=== PATIENT | male | born 1955 | race Caucasian/White ===

== ENCOUNTER 2016-04-11 20:46 | Emergency (ER) | payer MEDICAID ==
[~2016-04-11 20:46] MED LIST: /ADVA50050 IN; /ADVA50050 INH; /ATOR40TA OR; /FENO48TA OR; ALBU17IN INH; ALBUTEROL XX; ALLO300T OR; ASPI81TA45 OR; CLAR1TAB2 PO; COLA100C2 OR; CYAN1000VL IM; DIOV80TA OR; DIOV80TA2 PO; DUONSOL INH; EXTR500C4 PO; FERR325T PO; FLON1SPR; FOLI1TAB OR; FOLI1TAB PO; ISOS30BRAN OR; LACTOSE; LACTOSE PO; LEVO25TA4 PO; LEVO500T PO; LIPI20TA PO; LOPR50TA OR; MIRA3350 PO; NITR0.4S SL; PAXI20TA OR; PAXI20TA PO; PHOSLO667 MG PO; PRED20TA OR; PRIL20CA OR; QPAP PO; ROCA0.25 PO; SYNT100T PO; TIOT18INH INH; VALS160T PO; VALS40TA PO; VIT D PO; VITA100T OR; ZYRT1TAB PO; [UNRECOGNIZED DRUG - CODE] PO; [UNRECOGNIZED DRUG - OTHER]; [UNRECOGNIZED DRUG - OTHER] OR
--- NOTE | 2016-04-11 22:58 | EDDOCDS ---
Nurse's Notes [facility] Name: Greg Gerard Age: 60 yrs Sex: Male : 1955 Arrival Date: 04/11/2016 Time: 20:46 Bed 21 Private MD: Reggie Isaac Diagnosis: Epistaxis Presentation: 04/11 21:01 Presenting complaint: Patient states: epistaxis from3-6PM today---has tissue up nose. ms2 Adult Sepsis Screening: The patient does not have new or worsening altered mentation. Patient's respiratory rate is less than 22. Systolic blood pressure is greater than 100. Patient has a qSOFA score of 0- Negative Sepsis Screen. Suicide/Homicide risk assessment- the patient denies having any suicidal and/or homicidal ideations and does not present with any other emotional, behavioral or mental health complaints. Status: Patient is not a enterprise services manager or dependent. Transition of care: patient was not received from another setting of care. 21:01 Acuity: JACKIE Level 3 ms2 21:01 Method Of Arrival: Ambulance ms2 Triage Assessment: 21:14 General: Appears in no apparent distress, Behavior is cooperative. Pain: Denies pain. ms2 HIV screening NA for this visit Offered previously. The patient is triaged at the bedside. See Assessment in Nurses Notes section of ED record. Neurological: Level of Consciousness is awake, alert, obeys commands. Respiratory: No deficits noted. Airway is patent Respiratory effort is even, unlabored, Respiratory pattern is regular, symmetrical. Derm: Skin is pink, warm & dry. Musculoskeletal: Range of motion intact in all extremities. - Social history: Smoking status: Patient states former smoker of tobacco. No barriers to communication noted, The patient speaks fluent Sinhala. - Family history: Not pertinent. - : The pt / caregiver states he / she is not on anticoagulants. Home medication list is obtained from the patient, family members, [employer] import data. - Exposure Risk Screening:: None identified. Screenin:15 Screening information is obtained from the patient. Fall risk: No risks identified. ms2 Assistance ADL's: requires no assistance with activities of daily living. Abuse/DV Screen: The patient / caregiver reports he/she is: not in a situation that causes fear, pain or injury. Nutritional screening: No deficits noted. Advance Directives: Currently, there is a health care proxy, -kofi gerard. There is no active DNR order. There is no living will. There is no Power of Dog Bather. Advance directive information does not know if advance directives have been placed in a prior [facility] medical record. Further advance directive information is declined. home support is adequate. Assessment: 21:10 General: nose drops to left nare by SALMA Chua -followed wirh nasal clips---no epistaxis ms2 noted. 22:09 General: acute care physician aimee in to see pt ---clip removed --no epistaxis. ms2 22:55 Adult Sepsis Screening: The patient does not have new or worsening altered mentation. ms2 Patient's respiratory rate is less than 22. Systolic blood pressure is greater than 100. Patient has a qSOFA score of 0- Negative Sepsis Screen. General: Appears in no apparent distress, comfortable, Behavior is cooperative. Neurological: Level of Consciousness is awake, alert, obeys commands. Respiratory: No deficits noted. Airway is patent Respiratory effort is even, unlabored, Respiratory pattern is regular, symmetrical. Derm: Skin is pink, warm & dry. Musculoskeletal: Range of motion intact in all extremities. Vital Signs: 21:04 BP 146 / 77; Pulse 58; Resp 20; Temp 96.8(O); Pulse Ox 93% on R/A; Weight 94.35 kg (R); af2 Height 5 ft. 4 in. (162.56 cm) (R); Pain 0/10; 22:55 BP 120 / 58; Pulse 58; Resp 22 S; Temp 97.9(O); Pulse Ox 93% on R/A; ms2 21:04 Body Mass Index 35.70 (94.35 kg, 162.56 cm) af2 ED Course: 20:47 Patient visited by Mara Alvarado PCA. tmm1 20:47 Reggie Isaac MD is Private Physician. tmm1 20:47 Patient moved to Waiting tmm1 20:48 Jose Paul,ZAIDA is Primary Nurse. tmm1 20:48 Patient moved to 21 tmm1 20:58 [facility]. ke 20:58 Patient visited by Abebe Chua FNP. ke 20:58 Patient visited by Abebe Chua FNP. ke 21:01 Patient visited by Jose Paul,ZAIDA. ms2 21:03 Triage Initiated ms2 21:06 Pt greeted and oriented to ED. Patient advised of names of staff involved in care, jmdany location of call mandel, wait times and NPO status. Accompanied by Family Member, Patient has correct armband on for positive identification. Bed in low position. Side rails up X2. Pulse ox on. NIBP on. 21:07 Patient visited by Dirk Fatima PCA. jmv 21:16 The patient / caregiver is instructed regarding the plan of care and ED course. ms2 21:20 The patient / caregiver is instructed regarding the plan of care and ED course. ms2 21:20 No IV's were initiated during this patient's visit. No procedures done that require ms2 assistance. 21:31 Patient visited by Abebe Chua FNP. ke 21:55 Patient visited by Abebe Chua FNP. ke 22:15 [facility] Payment Agreement was scanned into [employer] and attached to record. zo 22:25 Patient visited by Abebe Chua FNP. ke 22:48 Reggie Isaac MD is Referral Physician. ke 22:55 Patient visited by Jose Paul RN. ms2 22:56 The patient / caregiver is instructed regarding the plan of care and ED course. ms2 22:57 Primary Nurse role handed off by Jose Paul RN ms2 Administered Medications: 21:10 Drug: phenylephrine n ose drops 1 % to left nare 1 applic Route: Intranasal; Site: left ms2 nare; 21:20 CANCELLED (Other Intervention Used): Phenylephrine Drops 2.5 % 1 drps Ophthalmic in ms2 both eyes once Order Results: There are currently no results for this order. Outcome: 22:48 Discharge ordered by Provider. ke 22:56 Discharge Assessment: patient administered narcotics - no. The following High Risk ms2 Discharge criteria are identified: None. Discharged to home ambulatory, with significant other. Condition: stable. Discharge instructions given to patient, Instructed on discharge instructions, follow up and referral plans. Demonstrated understanding of instructions, Pt was receptive of discharge instructions/ teaching. No special radiology studies were completed. Property sent home with patient. 22:57 Patient left the ED. ms2 Signatures: Jose Paul RN RN ms2 Abebe Chua FNP FNP ke Olin, Zoeann zo McLear, Theresa, MANUAL ARTS THERAPY TEACHER MANUAL ARTS THERAPY TEACHER tmm1 Alvarado,Karina,RN RN af2 Fatima, Dirk, MANUAL ARTS THERAPY TEACHER MANUAL ARTS THERAPY TEACHER jmv MTDD
--- NOTE | 2016-04-11 22:59 | EDDOCDS ---
Physician Documentation [facility] Name: Greg Gerard Age: 60 yrs Sex: Male : 1955 Arrival Date: 04/11/2016 Time: 20:46 Bed 21 Private MD: Reggie Isaac Disposition: 04/11/16 22:48 Discharged to Home/Self Care. Impression: Epistaxis. - Condition is Stable. - Discharge Instructions: Nosebleed. - Medication Reconciliation, Local Pharmacy Hours form. - Follow up: Reggie Isaac MD; When: 4 - 5 days; Reason: Recheck today's complaints, Continuance of care. - Problem is an acute exacerbation. - Symptoms have improved. - Social history: Smoking status: Patient states former smoker of tobacco. No barriers to communication noted, The patient speaks fluent Stateless. - Family history: Not pertinent. - : The pt / caregiver states he / she is not on anticoagulants. Home medication list is obtained from the patient, family members, [employer] import data. - Exposure Risk Screening:: None identified. Vital Signs: 04/11 21:04 BP 146 / 77; Pulse 58; Resp 20; Temp 96.8(O); Pulse Ox 93% on R/A; Weight 94.35 kg / af2 208.01 lbs (R); Height 5 ft. 4 in. (162.56 cm) (R); Pain 0/10; 22:55 BP 120 / 58; Pulse 58; Resp 22 S; Temp 97.9(O); Pulse Ox 93% on R/A; ms2 21:04 Body Mass Index 35.70 (94.35 kg, 162.56 cm) af2 MDM: 21:01 Financial registration complete. zo 21:20 phenylephrine n ose drops 1 % to left nare 1 applic Intranasal now; instilled by Cuff Folder rosangela Yu instilled by SALMA yu ordered. 22:15 [facility] Payment Agreement was scanned into [employer] and attached to record. zo Administered Medications: 21:10 Drug: phenylephrine n ose drops 1 % to left nare 1 applic Route: Intranasal; Site: left ms2 nare; 21:20 CANCELLED (Other Intervention Used): Phenylephrine Drops 2.5 % 1 drps Ophthalmic in ms2 both eyes once Signatures: Jose Paul RN RN ms2 Abebe Yu, MOVEMENT ASSEMBLER Cristina Bowles The chart was reviewed and I authenticate all verbal orders and agree with the evaluation and treatment provided.Corrections: (The following items were deleted from the chart) 21:20 21:20 Phenylephrine Drops 2.5 % 1 drps Ophthalmic in both eyes once ordered. ms2 ms2 Attachments: 22:15 [facility] Payment Agreement zo MTDD
--- NOTE | 2016-04-13 23:59 | EDDOCDS ---
Nurse's Notes [facility] Name: Greg Gerard Age: 60 yrs Sex: Male : 1955 Arrival Date: 04/11/2016 Time: 20:46 Bed 21 Private MD: Reggie Isaac Diagnosis: Epistaxis Presentation: 04/11 21:01 Presenting complaint: Patient states: epistaxis from3-6PM today---has tissue up nose. ms2 Adult Sepsis Screening: The patient does not have new or worsening altered mentation. Patient's respiratory rate is less than 22. Systolic blood pressure is greater than 100. Patient has a qSOFA score of 0- Negative Sepsis Screen. Suicide/Homicide risk assessment- the patient denies having any suicidal and/or homicidal ideations and does not present with any other emotional, behavioral or mental health complaints. Status: Patient is not a health services coordinator or dependent. Transition of care: patient was not received from another setting of care. 21:01 Acuity: JACKIE Level 3 ms2 21:01 Method Of Arrival: Ambulance ms2 Triage Assessment: 21:14 General: Appears in no apparent distress, Behavior is cooperative. Pain: Denies pain. ms2 HIV screening NA for this visit Offered previously. The patient is triaged at the bedside. See Assessment in Nurses Notes section of ED record. Neurological: Level of Consciousness is awake, alert, obeys commands. Respiratory: No deficits noted. Airway is patent Respiratory effort is even, unlabored, Respiratory pattern is regular, symmetrical. Derm: Skin is pink, warm & dry. Musculoskeletal: Range of motion intact in all extremities. - Social history: Smoking status: Patient states former smoker of tobacco. No barriers to communication noted, The patient speaks fluent Mongolian. - Family history: Not pertinent. - : The pt / caregiver states he / she is not on anticoagulants. Home medication list is obtained from the patient, family members, [employer] import data. - Exposure Risk Screening:: None identified. Screenin:15 Screening information is obtained from the patient. Fall risk: No risks identified. ms2 Assistance ADL's: requires no assistance with activities of daily living. Abuse/DV Screen: The patient / caregiver reports he/she is: not in a situation that causes fear, pain or injury. Nutritional screening: No deficits noted. Advance Directives: Currently, there is a health care proxy, -kofi gerard. There is no active DNR order. There is no living will. There is no Power of Legislative Aide. Advance directive information does not know if advance directives have been placed in a prior [facility] medical record. Further advance directive information is declined. home support is adequate. Assessment: 21:10 General: nose drops to left nare by SALMA Chua -followed wirh nasal clips---no epistaxis ms2 noted. 22:09 General: material disposition inspector aimee in to see pt ---clip removed --no epistaxis. ms2 22:55 Adult Sepsis Screening: The patient does not have new or worsening altered mentation. ms2 Patient's respiratory rate is less than 22. Systolic blood pressure is greater than 100. Patient has a qSOFA score of 0- Negative Sepsis Screen. General: Appears in no apparent distress, comfortable, Behavior is cooperative. Neurological: Level of Consciousness is awake, alert, obeys commands. Respiratory: No deficits noted. Airway is patent Respiratory effort is even, unlabored, Respiratory pattern is regular, symmetrical. Derm: Skin is pink, warm & dry. Musculoskeletal: Range of motion intact in all extremities. Vital Signs: 21:04 BP 146 / 77; Pulse 58; Resp 20; Temp 96.8(O); Pulse Ox 93% on R/A; Weight 94.35 kg (R); af2 Height 5 ft. 4 in. (162.56 cm) (R); Pain 0/10; 22:55 BP 120 / 58; Pulse 58; Resp 22 S; Temp 97.9(O); Pulse Ox 93% on R/A; ms2 21:04 Body Mass Index 35.70 (94.35 kg, 162.56 cm) af2 ED Course: 20:47 Patient visited by Mara Alvarado PCA. tmm1 20:47 Reggie Isaac MD is Private Physician. tmm1 20:47 Patient moved to Waiting tmm1 20:48 Jose Paul,ZAIDA is Primary Nurse. tmm1 20:48 Patient moved to 21 tmm1 20:58 [facility]. ke 20:58 Patient visited by Abebe Chua FNP. ke 20:58 Patient visited by Abebe Chua FNP. ke 21:01 Patient visited by Jose Paul,ZAIDA. ms2 21:03 Triage Initiated ms2 21:06 Pt greeted and oriented to ED. Patient advised of names of staff involved in care, jmdany location of call mandel, wait times and NPO status. Accompanied by Family Member, Patient has correct armband on for positive identification. Bed in low position. Side rails up X2. Pulse ox on. NIBP on. 21:07 Patient visited by Dirk Fatima PCA. jmv 21:16 The patient / caregiver is instructed regarding the plan of care and ED course. ms2 21:20 The patient / caregiver is instructed regarding the plan of care and ED course. ms2 21:20 No IV's were initiated during this patient's visit. No procedures done that require ms2 assistance. 21:31 Patient visited by Abebe Chua FNP. ke 21:55 Patient visited by Abebe Chua FNP. ke 22:15 [facility] Payment Agreement was scanned into [employer] and attached to record. zo 22:25 Patient visited by Abebe Chua FNP. ke 22:48 Reggie Isaac MD is Referral Physician. ke 22:55 Patient visited by Jose Paul RN. ms2 22:56 The patient / caregiver is instructed regarding the plan of care and ED course. ms2 22:57 Primary Nurse role handed off by Jose Paul RN ms2 04/12 06:08 T-Sheet-- Draft Copy was scanned into [employer] and attached to record. hs2 Administered Medications: 04/11 21:10 Drug: phenylephrine n ose drops 1 % to left nare 1 applic Route: Intranasal; Site: left ms2 nare; 21:20 CANCELLED (Other Intervention Used): Phenylephrine Drops 2.5 % 1 drps Ophthalmic in ms2 both eyes once Order Results: There are currently no results for this order. Outcome: 22:48 Discharge ordered by Provider. ke 22:56 Discharge Assessment: patient administered narcotics - no. The following High Risk ms2 Discharge criteria are identified: None. Discharged to home ambulatory, with significant other. Condition: stable. Discharge instructions given to patient, Instructed on discharge instructions, follow up and referral plans. Demonstrated understanding of instructions, Pt was receptive of discharge instructions/ teaching. No special radiology studies were completed. Property sent home with patient. 22:57 Patient left the ED. ms2 Signatures: Jose Paul RN RN ms2 Abebe Chua, CONTINUITY PERSON CONTINUITY PERSON ke Cristina Luis, Mara, METAL PRODUCTS VIEWER METAL PRODUCTS VIEWER tmm1 Karina Alvarado,RN RN af2 Madison Mackay, Reg Reg hs2 Fatima, Dirk, METAL PRODUCTS VIEWER METAL PRODUCTS VIEWER jmv Chart Complete MTDD
--- NOTE | 2016-04-13 23:59 | EDDOCDS ---
Physician Documentation [facility] Name: Greg Gerard Age: 60 yrs Sex: Male : 1955 Arrival Date: 04/11/2016 Time: 20:46 Bed 21 Private MD: Reggie Isaac Disposition: 04/11/16 22:48 Discharged to Home/Self Care. Impression: Epistaxis. - Condition is Stable. - Discharge Instructions: Nosebleed. - Medication Reconciliation, Local Pharmacy Hours form. - Follow up: Reggie Isaac MD; When: 4 - 5 days; Reason: Recheck today's complaints, Continuance of care. - Problem is an acute exacerbation. - Symptoms have improved. - Social history: Smoking status: Patient states former smoker of tobacco. No barriers to communication noted, The patient speaks fluent Wallisian. - Family history: Not pertinent. - : The pt / caregiver states he / she is not on anticoagulants. Home medication list is obtained from the patient, family members, [employer] import data. - Exposure Risk Screening:: None identified. Vital Signs: 04/11 21:04 BP 146 / 77; Pulse 58; Resp 20; Temp 96.8(O); Pulse Ox 93% on R/A; Weight 94.35 kg / af2 208.01 lbs (R); Height 5 ft. 4 in. (162.56 cm) (R); Pain 0/10; 22:55 BP 120 / 58; Pulse 58; Resp 22 S; Temp 97.9(O); Pulse Ox 93% on R/A; ms2 21:04 Body Mass Index 35.70 (94.35 kg, 162.56 cm) af2 MDM: 21:01 Financial registration complete. zo 21:20 phenylephrine n ose drops 1 % to left nare 1 applic Intranasal now; instilled by [employer] Analyst rosangela Yu instilled by SALMA yu ordered. 22:15 [facility] Payment Agreement was scanned into [employer] and attached to record. zo 04/12 06:08 T-Sheet-- Draft Copy was scanned into [employer] and attached to record. hs2 Administered Medications: 04/11 21:10 Drug: phenylephrine n ose drops 1 % to left nare 1 applic Route: Intranasal; Site: left ms2 nare; 21:20 CANCELLED (Other Intervention Used): Phenylephrine Drops 2.5 % 1 drps Ophthalmic in ms2 both eyes once Signatures: oJse Paul,RN RN ms2 Abebe Yu, ENTERTAINER & COMIC ENTERTAINER & COMIC Cristina Fischer Hillary, Reg Reg hs2 The chart was reviewed and I authenticate all verbal orders and agree with the evaluation and treatment provided.Corrections: (The following items were deleted from the chart) 21:20 21:20 Phenylephrine Drops 2.5 % 1 drps Ophthalmic in both eyes once ordered. ms2 ms2 Attachments: 22:15 [facility] Payment Agreement zo 04/12 06:08 T-Sheet-- Draft Copy hs2 Chart Complete MTDD
--- NOTE | 2016-04-13 23:59 | EDDOCDS ---
Physician Documentation [facility] Name: Greg Gerard Age: 60 yrs Sex: Male : 1955 Arrival Date: 04/11/2016 Time: 20:46 Bed 21 Private MD: Reggie Isaac Disposition: 04/11/16 22:48 Discharged to Home/Self Care. Impression: Epistaxis. - Condition is Stable. - Discharge Instructions: Nosebleed. - Medication Reconciliation, Local Pharmacy Hours form. - Follow up: Reggie Isaac MD; When: 4 - 5 days; Reason: Recheck today's complaints, Continuance of care. - Problem is an acute exacerbation. - Symptoms have improved. - Social history: Smoking status: Patient states former smoker of tobacco. No barriers to communication noted, The patient speaks fluent Kazakh. - Family history: Not pertinent. - : The pt / caregiver states he / she is not on anticoagulants. Home medication list is obtained from the patient, family members, [employer] import data. - Exposure Risk Screening:: None identified. Vital Signs: 04/11 21:04 BP 146 / 77; Pulse 58; Resp 20; Temp 96.8(O); Pulse Ox 93% on R/A; Weight 94.35 kg / af2 208.01 lbs (R); Height 5 ft. 4 in. (162.56 cm) (R); Pain 0/10; 22:55 BP 120 / 58; Pulse 58; Resp 22 S; Temp 97.9(O); Pulse Ox 93% on R/A; ms2 21:04 Body Mass Index 35.70 (94.35 kg, 162.56 cm) af2 MDM: 21:01 Financial registration complete. zo 21:20 phenylephrine n ose drops 1 % to left nare 1 applic Intranasal now; instilled by Glass Designer rosangela Yu instilled by SALMA yu ordered. 22:15 [facility] Payment Agreement was scanned into [employer] and attached to record. zo 04/12 06:08 T-Sheet-- Draft Copy was scanned into [employer] and attached to record. hs2 Administered Medications: 04/11 21:10 Drug: phenylephrine n ose drops 1 % to left nare 1 applic Route: Intranasal; Site: left ms2 nare; 21:20 CANCELLED (Other Intervention Used): Phenylephrine Drops 2.5 % 1 drps Ophthalmic in ms2 both eyes once Signatures: Jose Paul,RN RN ms2 Abebe Yu, INFORMATION ANALYST INFORMATION ANALYST Cristina Fischer Hillary, Reg Reg hs2 The chart was reviewed and I authenticate all verbal orders and agree with the evaluation and treatment provided.Corrections: (The following items were deleted from the chart) 21:20 21:20 Phenylephrine Drops 2.5 % 1 drps Ophthalmic in both eyes once ordered. ms2 ms2 Attachments: 22:15 [facility] Payment Agreement zo 04/12 06:08 T-Sheet-- Draft Copy hs2 Chart Complete MTDD
== END 2016-04-11 22:57 | disposition home or self-care (01) ==
LOC: M ED 20:46
DX: R04.0 Epistaxis (principal); Z87.891 Personal history of nicotine dependence

== ENCOUNTER → 2016-04-30 | Outpatient (REF) | payer MEDICAID | LOC: M LAB REF 13:05 | PROVIDERS: ATTEND Otolaryngology | DX: H72.2X1 Other marginal perforations of tympanic membrane, right ear (principal); H66.3X1 Other chronic suppurative otitis media, right ear ==

== ENCOUNTER → 2016-07-01 | Outpatient (REF) | payer MEDICAID ==
[2016-07-01 18:21] LABS: ALBUMIN 3.7 GM/DL (3.2-5.2); ALBUMIN/GLOBULIN RATIO 1.09 (1.00-1.93); ALKALINE PHOSPHATASE 95 U/L (45-117); ALT/SGPT 27 U/L (12-78); ANION GAP 8 MEQ/L (8-16); AST/SGOT 16 U/L (15-37); BILIRUBIN,TOTAL 0.4 MG/DL (0.2-1.0); BLOOD UREA NITROGEN 14 MG/DL (7-18); CALCIUM LEVEL 9.5 MG/DL (8.8-10.2); CARBON DIOXIDE LEVEL 29 MEQ/L (21-32); CHLORIDE LEVEL 106 MEQ/L (98-107); CREATININE FOR GFR 1.28 MG/DL (0.70-1.30); FERRITIN 780 NG/ML (26-388); FREE T4 1.23 NG/DL (0.76-1.46); GLOMERULAR FILTRATION RATE > 60.0 (>49); GLUCOSE, FASTING 99 MG/DL (80-110); PERCENT SATURATION 26.7 % (19.7-37.4); PHOSPHORUS LEVEL 1.9 MG/DL (2.5-4.9); POTASSIUM SERUM 3.5 MEQ/L (3.5-5.1); SODIUM LEVEL 143 MEQ/L (136-145); TOTAL IRON BINDING CAPACITY 300 UG/DL (250-450); TOTAL PROTEIN 7.1 GM/DL (6.4-8.2)
[2016-07-01 18:35] LABS: BASO % 0.9 % (0.0-1.0); EOS # 0.5 K/mm3 (0.0-0.50); EOS % 8.1 % (0.0-3.0); LARGE UNSTAINED CELL # 0.1 K/mm3 (0.0-0.4); LARGE UNSTAINED CELL % 1.4 % (0.0-4.0); LYMPH # 1.7 K/mm3 (1.5-4.5); LYMPH % 29.1 % (24.0-44.0); MEAN CORPUSCULAR HEMOGLOBIN 33.8 pg (27.0-33.0); MEAN CORPUSCULAR HGB CONC 33.5 g/dl (32.0-36.5); MEAN CORPUSCULAR VOLUME 100.8 fl (80.0-96.0); MONO # 0.3 K/mm3 (0.0-0.8); MONO % 5.2 % (0.0-5.0); NEUTROPHILS # 3.2 K/mm3 (1.8-7.7); NEUTROPHILS % 55.2 % (36.0-66.0); PLATELET COUNT, AUTOMATED 181 k/mm3 (150-450); RED CELL DISTRIBUTION WIDTH 13.3 % (11.5-14.5); WHITE BLOOD COUNT 5.8 K/mm3 (4.0-10.0)
== END ==
LOC: M SFHCPLAZ 14:31
PROVIDERS: ATTEND Family Medicine
DX: D50.9 Iron deficiency anemia, unspecified (principal); N18.3 Chronic kidney disease, stage 3 (moderate); E03.9 Hypothyroidism, unspecified; K80.20 Calculus of gallbladder without cholecystitis without obstruction; R73.01 Impaired fasting glucose; E21.3 Hyperparathyroidism, unspecified

== ENCOUNTER → 2016-07-27 | Outpatient (CLI) | payer MEDICAID ==
--- NOTE | 2016-07-29 09:21 | DEXA ---
AP SPINE L1 - L4 1.398 1.3 1.2 LT FEMUR TOTAL 0.936 -1.1 -0.9 RT FEMUR TOTAL 0.843 -1.8 -1.6 TOTAL BODY TOTAL OTHER DUAL FEMUR FRAX* ASSESSMENT Risk factors: Glucocorticoids (chronic), history of fracture (adult), secondary osteoporosis (hyperthyroidism). 10 year probability of fracture Major osteoporotic fracture 20.5 % Hip fracture 5.7 % COMMENTS: Normal bone densitometry of the spine. There is low bone density of the hips. The density of the spine has increased 1.5% since 09/08/2012. The density of the left hip has increased 2.3% since 09/08/2012. The density of the right hip has decreased 4.3% since 09/08/2012. FOLLOW-UP: Recommendation for the next bone density exam: 2 years. JAGDISH
== END ==
LOC: M WHC 13:37
PROVIDERS: ATTEND Family Medicine
DX: E21.3 Hyperparathyroidism, unspecified (principal)

== ENCOUNTER → 2016-08-11 | Outpatient (REF) | payer MEDICAID ==
[2016-08-11 18:30] LABS: BASO % 0.4 % (0.0-1.0); EOS # 0.7 K/mm3 (0.0-0.50); EOS % 6.3 % (0.0-3.0); LARGE UNSTAINED CELL # 0.2 K/mm3 (0.0-0.4); LARGE UNSTAINED CELL % 1.9 % (0.0-4.0); LYMPH # 2.4 K/mm3 (1.5-4.5); LYMPH % 22.1 % (24.0-44.0); MEAN CORPUSCULAR HEMOGLOBIN 34.3 pg (27.0-33.0); MEAN CORPUSCULAR HGB CONC 32.4 g/dl (32.0-36.5); MEAN CORPUSCULAR VOLUME 105.8 fl (80.0-96.0); MONO # 0.7 K/mm3 (0.0-0.8); MONO % 6.8 % (0.0-5.0); NEUTROPHILS # 6.8 K/mm3 (1.8-7.7); NEUTROPHILS % 62.6 % (36.0-66.0); PLATELET COUNT, AUTOMATED 198 k/mm3 (150-450); RED CELL DISTRIBUTION WIDTH 13.7 % (11.5-14.5); WHITE BLOOD COUNT 10.8 K/mm3 (4.0-10.0)
[2016-08-11 18:59] LABS: CALCIUM LEVEL 10.4 MG/DL (8.8-10.2); CREATININE FOR GFR 1.41 MG/DL (0.70-1.30); POTASSIUM SERUM 4.1 MEQ/L (3.5-5.1)
== END ==
LOC: M SFHCPLAZ 16:51
PROVIDERS: ATTEND Physician Assistant Medical
DX: R19.7 Diarrhea, unspecified (principal)

== ENCOUNTER → 2016-08-12 | Outpatient (REF) | payer MEDICAID ==
[2016-08-15 00:06] LABS: O+P EXAM Final report (.)
== END ==
LOC: M SFHCPLAZ 09:54
PROVIDERS: ATTEND Physician Assistant Medical
DX: R19.7 Diarrhea, unspecified (principal)

== ENCOUNTER → 2016-08-18 | Outpatient (REF) | payer MEDICAID ==
[2016-08-18 10:35] LABS: BASO # 0.1 K/mm3 (0.0-0.2); EOS # 0.5 K/mm3 (0.0-0.50); EOS % 8.2 % (0.0-3.0); LARGE UNSTAINED CELL # 0.1 K/mm3 (0.0-0.4); LARGE UNSTAINED CELL % 1.8 % (0.0-4.0); LYMPH # 2.3 K/mm3 (1.5-4.5); LYMPH % 33.9 % (24.0-44.0); MEAN CORPUSCULAR HEMOGLOBIN 34.1 pg (27.0-33.0); MEAN CORPUSCULAR HGB CONC 33.5 g/dl (32.0-36.5); MEAN CORPUSCULAR VOLUME 101.7 fl (80.0-96.0); MONO # 0.4 K/mm3 (0.0-0.8); MONO % 6.1 % (0.0-5.0); NEUTROPHILS # 3.1 K/mm3 (1.8-7.7); PLATELET COUNT, AUTOMATED 203 k/mm3 (150-450); RED CELL DISTRIBUTION WIDTH 13.9 % (11.5-14.5); WHITE BLOOD COUNT 6.4 K/mm3 (4.0-10.0)
[2016-08-18 10:48] LABS: ANION GAP 3 MEQ/L (8-16); BLOOD UREA NITROGEN 20 MG/DL (7-18); CALCIUM LEVEL 9.8 MG/DL (8.8-10.2); CARBON DIOXIDE LEVEL 33 MEQ/L (21-32); CHLORIDE LEVEL 105 MEQ/L (98-107); CREATININE FOR GFR 1.21 MG/DL (0.70-1.30); GLOMERULAR FILTRATION RATE > 60.0 (>49); GLUCOSE, FASTING 150 MG/DL (80-110); POTASSIUM SERUM 4.3 MEQ/L (3.5-5.1); SODIUM LEVEL 141 MEQ/L (136-145)
== END ==
LOC: M SFHCPLAZ 08:42
PROVIDERS: ATTEND Physician Assistant Medical
DX: A09 Infectious gastroenteritis and colitis, unspecified (principal)

== ENCOUNTER → 2016-09-20 | Outpatient (REF) | payer MEDICAID ==
[2016-09-20 16:40] LABS: ALBUMIN 3.3 GM/DL (3.2-5.2); ALBUMIN/GLOBULIN RATIO 0.89 (1.00-1.93); BILIRUBIN,TOTAL 0.7 MG/DL (0.2-1.0); CALCIUM LEVEL 9.9 MG/DL (8.8-10.2); CREATININE FOR GFR 1.37 MG/DL (0.70-1.30); GLOMERULAR FILTRATION RATE 55.9 (>49); PHOSPHORUS LEVEL 1.8 MG/DL (2.5-4.9); POTASSIUM SERUM 4.8 MEQ/L (3.5-5.1); URIC ACID 6.1 MG/DL (3.5-7.2)
== END ==
LOC: M SFHCPLAZ 10:00
PROVIDERS: ATTEND Family Medicine
DX: E21.3 Hyperparathyroidism, unspecified (principal)

== ENCOUNTER 2016-11-18 18:06 | Emergency (ER) | payer MEDICAID ==
[~2016-11-18] VITALS: Ht 162.6 cm; Wt 94.5 kg
[2016-11-18] MEDS ORDERED: ALBUTEROL SULFATE 2.5 MG/0.5 ML INH NEB SOLN NEB ONE (18:45)
[2016-11-18 19:01] LABS: BASO % 0.3 % (0.0-1.0); EOS # 0.3 K/mm3 (0.0-0.50); EOS % 3.5 % (0.0-3.0); LARGE UNSTAINED CELL # 0.1 K/mm3 (0.0-0.4); LARGE UNSTAINED CELL % 1.2 % (0.0-4.0); LYMPH # 1.7 K/mm3 (1.5-4.5); MEAN CORPUSCULAR HEMOGLOBIN 34.1 pg (27.0-33.0); MEAN CORPUSCULAR VOLUME 103.5 fl (80.0-96.0); MONO # 0.6 K/mm3 (0.0-0.8); MONO % 6.2 % (0.0-5.0); NEUTROPHILS # 6.7 K/mm3 (1.8-7.7); NEUTROPHILS % 71.9 % (36.0-66.0); PLATELET COUNT, AUTOMATED 177 k/mm3 (150-450); RED CELL DISTRIBUTION WIDTH 14.2 % (11.5-14.5); WHITE BLOOD COUNT 9.3 K/mm3 (4.0-10.0)
[2016-11-18 19:22] LABS: CALCIUM LEVEL 10.3 MG/DL (8.8-10.2); CREATININE FOR GFR 1.4 MG/DL (0.70-1.30); GLOMERULAR FILTRATION RATE 54.5 (>49); POTASSIUM SERUM 4.2 MEQ/L (3.5-5.1)
[2016-11-18] MEDS ORDERED: ZITHTAB PO (19:50)
[2016-11-18 20:06] VITALS: BP 130/62
--- NOTE | 2016-11-18 20:17 | REP ---
CHEST PA AND LATERAL: 11/18/2016. Clinical history: Fever. Comparison: 10/03/2015, 03/21/2015. Findings. Two-views show the lung lopez are well inflated. There is left ventricular configuration of the heart, but no left atrial enlargement and on the lateral view the left ventricle is not enlarged. I suspect epicardial fat pad. Prominence of the pulmonary arteries bilaterally, unchanged. No vascular redistribution or edema. Minor basilar fibrotic changes, stable. No acute infiltrate, effusion, lateral pleural thickening or apical scarring. The aorta is mildly calcified at the arch without an aneurysm. Airway intact. Degenerative changes in the spine. Impression: 1. Minor basilar fibrotic change without acute cardiopulmonary disease. Signed by Kt Yun MD 11/19/2016 11:13 A
== END 2016-11-18 20:09 | disposition home or self-care (01) ==
LOC: M ED 18:06
DX: J44.0 Chronic obstructive pulmonary disease with (acute) lower respiratory infection (principal); I25.10 Atherosclerotic heart disease of native coronary artery without angina pectoris; I25.2 Old myocardial infarction; I10 Essential (primary) hypertension; E78.5 Hyperlipidemia, unspecified; N18.3 Chronic kidney disease, stage 3 (moderate); G47.30 Sleep apnea, unspecified; E03.9 Hypothyroidism, unspecified; Z98.61 Coronary angioplasty status; Z87.891 Personal history of nicotine dependence; Z82.49 Family history of ischemic heart disease and other diseases of the circulatory system; Z79.82 Long term (current) use of aspirin; Z79.899 Other long term (current) drug therapy; Z88.6 Allergy status to analgesic agent; Z91.013 Allergy to seafood

== ENCOUNTER 2016-12-04 18:56 | Emergency (ER) | payer MEDICAID ==
[~2016-12-04] VITALS: Ht 162.6 cm; Wt 208.0 kg
[~2016-12-04 18:56] MED LIST changes: +ZITHTAB PO
[2016-12-04 20:07] LABS: BASO % 0.5 % (0.0-1.0); EOS # 0.4 K/mm3 (0.0-0.50); EOS % 5.4 % (0.0-3.0); LARGE UNSTAINED CELL # 0.1 K/mm3 (0.0-0.4); LARGE UNSTAINED CELL % 1.9 % (0.0-4.0); LYMPH # 2.2 K/mm3 (1.5-4.5); LYMPH % 32.6 % (24.0-44.0); MEAN CORPUSCULAR HEMOGLOBIN 34.8 pg (27.0-33.0); MEAN CORPUSCULAR HGB CONC 34.3 g/dl (32.0-36.5); MEAN CORPUSCULAR VOLUME 101.4 fl (80.0-96.0); MONO # 0.4 K/mm3 (0.0-0.8); MONO % 5.6 % (0.0-5.0); NEUTROPHILS # 3.7 K/mm3 (1.8-7.7); PLATELET COUNT, AUTOMATED 193 k/mm3 (150-450); RED CELL DISTRIBUTION WIDTH 13.8 % (11.5-14.5); WHITE BLOOD COUNT 6.9 K/mm3 (4.0-10.0)
[2016-12-04 20:33] LABS: ALBUMIN 3.3 GM/DL (3.2-5.2); ALBUMIN/GLOBULIN RATIO 0.87 (1.00-1.93); ALKALINE PHOSPHATASE 91 U/L (45-117); ALT/SGPT 25 U/L (12-78); ANION GAP 10 MEQ/L (8-16); AST/SGOT 19 U/L (15-37); BILIRUBIN,DIRECT < 0.1 MG/DL (0.0-0.2); BILIRUBIN,TOTAL 0.3 MG/DL (0.2-1.0); BLOOD UREA NITROGEN 14 MG/DL (7-18); CALCIUM LEVEL 9.5 MG/DL (8.8-10.2); CARBON DIOXIDE LEVEL 25 MEQ/L (21-32); CHLORIDE LEVEL 107 MEQ/L (98-107); CREATININE FOR GFR 1.22 MG/DL (0.70-1.30); GLOMERULAR FILTRATION RATE > 60.0 (>49); GLUCOSE, FASTING 171 MG/DL (80-110); POTASSIUM SERUM 4.3 MEQ/L (3.5-5.1); SODIUM LEVEL 142 MEQ/L (136-145); TOTAL PROTEIN 7.1 GM/DL (6.4-8.2)
[2016-12-04] MEDS ORDERED: LACTULOSE 20 GM/30 ML SYRUP UD PO ONE (21:00)
[2016-12-04 21:16] VITALS: BP 139/67
--- NOTE | 2016-12-05 08:57 | REP ---
ABDOMEN, FLAT AND UPRIGHT, PA CHEST, THREE VIEWS: HISTORY: Pain. A small amount of air is present in small and large intestine. Several air fluid levels are present. There are no dilated loops of intestine. There is no pneumoperitoneum. Surgical clips are present in the mid lower abdomen. A minimal increase in interstitial markings is present in the lower lobes consistent with chronic interstitial change. The heart is upper limits of normal in size. IMPRESSION: Nonspecific bowel gas pattern. Signed by Aftab Carroll MD 12/05/2016 08:58 A
== END 2016-12-04 21:20 | disposition home or self-care (01) ==
LOC: M ED 18:56
DX: K59.00 Constipation, unspecified (principal); R10.9 Unspecified abdominal pain; J44.9 Chronic obstructive pulmonary disease, unspecified; K21.9 Gastro-esophageal reflux disease without esophagitis; F32.9 Major depressive disorder, single episode, unspecified; E78.5 Hyperlipidemia, unspecified; Z79.82 Long term (current) use of aspirin; Z79.899 Other long term (current) drug therapy; Z88.6 Allergy status to analgesic agent; Z91.013 Allergy to seafood

== ENCOUNTER → 2016-12-09 | Outpatient (REF) | payer MEDICAID ==
[2016-12-09 15:10] LABS: BASO % 0.7 % (0.0-1.0); EOS # 0.5 K/mm3 (0.0-0.50); LARGE UNSTAINED CELL # 0.2 K/mm3 (0.0-0.4); LARGE UNSTAINED CELL % 2.7 % (0.0-4.0); LYMPH % 29.1 % (24.0-44.0); MEAN CORPUSCULAR HEMOGLOBIN 34.1 pg (27.0-33.0); MEAN CORPUSCULAR HGB CONC 33.4 g/dl (32.0-36.5); MEAN CORPUSCULAR VOLUME 102.1 fl (80.0-96.0); MONO # 0.5 K/mm3 (0.0-0.8); MONO % 7.2 % (0.0-5.0); NEUTROPHILS # 3.7 K/mm3 (1.8-7.7); NEUTROPHILS % 53.3 % (36.0-66.0); PLATELET COUNT, AUTOMATED 198 k/mm3 (150-450); RED CELL DISTRIBUTION WIDTH 13.9 % (11.5-14.5); WHITE BLOOD COUNT 6.9 K/mm3 (4.0-10.0)
[2016-12-09 15:26] LABS: ALBUMIN 3.4 GM/DL (3.2-5.2); ANION GAP 8 MEQ/L (8-16); BLOOD UREA NITROGEN 15 MG/DL (7-18); CALCIUM LEVEL 9.5 MG/DL (8.8-10.2); CARBON DIOXIDE LEVEL 29 MEQ/L (21-32); CHLORIDE LEVEL 103 MEQ/L (98-107); CREATININE FOR GFR 1.12 MG/DL (0.70-1.30); FERRITIN 847 NG/ML (26-388); GLOMERULAR FILTRATION RATE > 60.0 (>49); GLUCOSE, FASTING 92 MG/DL (80-110); PERCENT SATURATION 34.4 % (19.7-50.0); PHOSPHORUS LEVEL 2.2 MG/DL (2.5-4.9); POTASSIUM SERUM 4.1 MEQ/L (3.5-5.1); SODIUM LEVEL 140 MEQ/L (136-145); TOTAL IRON BINDING CAPACITY 279 UG/DL (250-450); URIC ACID 5.2 MG/DL (3.5-7.2)
[2016-12-09 15:28] LABS: VITAMIN B12 LEVEL 299 PG/ML (247-911)
[2016-12-09 19:04] LABS: ERYTHROCYTE SEDIMENTATION RATE 44 mm/hr (0-20)
[2016-12-10 11:58] LABS: PRETREATED FOLATE FOR RBCFOL 14.5 NG/ML
== END ==
LOC: M SFHCPLAZ 12:35
PROVIDERS: ATTEND Family Medicine
DX: D50.9 Iron deficiency anemia, unspecified (principal); K59.09 Other constipation; N18.3 Chronic kidney disease, stage 3 (moderate); E53.8 Deficiency of other specified B group vitamins

== ENCOUNTER → 2016-12-20 | Outpatient (CLI) | payer MEDICAID ==
[~2016-12-20] MED LIST changes: +GASTROGRAFIN SOLUTION 30ML (Q9963) As Ordered ONE; +ISOVUE-370 76% 100ML VIAL (Q9967) As Ordered ONE
--- NOTE | 2016-12-20 16:56 | REP ---
CT abdomen and pelvis without and with IV contrast: With oral contrast. History: Right lower quadrant abdominal pain. Comparison CT study: 10/07/2014. CT contrast dose: 100 mL of intravenous Isovue 370. CT findings: Preliminary digital clerical office radiograph is unremarkable. The lung bases are essentially clear. There are healed or healing rib fractures on the right. There is diffuse fatty infiltration of the liver with areas of fat sparing near the gallbladder. This is essentially unchanged. Calcified gallstones are seen in the dependent portion the gallbladder as before. No focal hepatic mass lesion is seen. The spleen is unremarkable and homogeneous. No adrenal lesion is seen on either side. No pancreatic abnormality is observed. There is a parapelvic cyst occupying the lower pole of the left kidney. This measures 5.7 cm in greatest diameter. There is a small cyst in the lower pole of the right kidney. This measures 2.0 centimeters. No hydronephrosis is seen on either side. No intrarenal calculus is observed. The patient is status post ventral hernia repair. There is some left colonic diverticulosis without CT evidence of diverticulitis. There is evidence of bilateral inguinal hernias each transmitting abdominal fat but no bowel. Urinary bladder, seminal vesicles and prostate are unremarkable. No bony destructive lesion is seen. Impression: 1. Cholelithiasis. 2. Fatty infiltration of the liver. 3. Scattered colonic diverticulosis. No CT evidence of diverticulitis. 4. Bilateral inguinal hernias transmitting abdominal fat. 5. A normal appendix is seen in the right lower quadrant. Signed by Pramod Campo MD 12/21/2016 02:12 P
== END ==
LOC: M RAD 12:54
PROVIDERS: ATTEND Family Medicine
DX: R10.9 Unspecified abdominal pain (principal)
CPT/HCPCS: 74178; Q9963; Q9967

== ENCOUNTER → 2017-01-18 | Outpatient (REF) | payer MEDICAID ==
[~2017-01-18] MED LIST changes: -GASTROGRAFIN SOLUTION 30ML (Q9963) As Ordered ONE; -ISOVUE-370 76% 100ML VIAL (Q9967) As Ordered ONE
== END ==
LOC: M SFHCPLAZ 11:40
PROVIDERS: ATTEND Family Medicine
DX: L82.1 Other seborrheic keratosis (principal)

== ENCOUNTER 2017-01-30 09:57 | Emergency (ER) | payer MEDICAID ==
[~2017-01-30] VITALS: Ht 162.6 cm; Wt 99.1 kg
[2017-01-30] MEDS ORDERED: IPRATROPIUM 0.5MG/ALBUTEROL 2.5MG INH SOL UD 3ML (DUONEB)(J7620) NEB ONE (11:30)
[2017-01-30 12:34] VITALS: BP 101/69
== END 2017-01-30 12:35 | disposition home or self-care (01) ==
LOC: M ED 09:57
DX: J98.01 Acute bronchospasm (principal); J44.9 Chronic obstructive pulmonary disease, unspecified; E11.9 Type 2 diabetes mellitus without complications; I10 Essential (primary) hypertension; E78.00 Pure hypercholesterolemia, unspecified; G47.33 Obstructive sleep apnea (adult) (pediatric); N40.0 Benign prostatic hyperplasia without lower urinary tract symptoms; Z87.891 Personal history of nicotine dependence; Z79.82 Long term (current) use of aspirin; Z79.899 Other long term (current) drug therapy; Z88.6 Allergy status to analgesic agent; Z91.013 Allergy to seafood

== ENCOUNTER → 2017-02-01 | Outpatient (CLI) | payer MEDICAID ==
--- NOTE | 2017-02-01 15:59 | REP ---
PA and lateral chest: Comparisons are the PA and lateral chest dated 11/18/[address] abdomen pelvis including the lower lung lopez on 12/20/2016. There is increased density inferiorly in the right hemithorax on the current study as a change from both prior studies, compatible with infiltrate and / or effusion, not present previously. The right upper lobe is clear. The left lung is clear. Cardiac size appears enlarged, however there are large bilateral epicardial fat pads on the comparison CT distorting cardiac size. The pat, mediastinum, and bony thorax are unchanged unremarkable for patient age. Impression: New infiltrate/effusion inferiorly in the right lung. Signed by Miguel Doss MD 02/01/2017 03:52 P
== END ==
LOC: M RAD 14:27
PROVIDERS: ATTEND Physician Assistant Medical
DX: J30.89 Other allergic rhinitis (principal)

== ENCOUNTER → 2017-02-01 | Outpatient (REF) | payer MEDICAID ==
[2017-02-01 13:29] LABS: BASO % 0.4 % (0.0-1.0); EOS # 0.5 10^3/uL (0.0-0.50); EOS % 5.3 % (0.0-3.0); IMMATURE GRANULOCYTE % 0.3 % (0-0); LYMPH % 19.5 % (24.0-44.0); MEAN CORPUSCULAR HEMOGLOBIN 33.9 pg (27.0-33.0); MEAN CORPUSCULAR VOLUME 102.6 fl (80.0-96.0); MONO % 9.5 % (0.0-5.0); NEUTROPHILS # 6.5 10^3/uL (1.8-7.7); PLATELET COUNT, AUTOMATED 184 10^3/uL (150-450); RED CELL DISTRIBUTION WIDTH 14.3 % (11.5-14.5)
[2017-02-01 13:53] LABS: CALCIUM LEVEL 10.1 MG/DL (8.8-10.2); CREATININE FOR GFR 1.33 MG/DL (0.70-1.30); GLOMERULAR FILTRATION RATE 57.8 (>49)
== END ==
LOC: M SFHCPLAZ 10:56
PROVIDERS: ATTEND Physician Assistant Medical
DX: J30.89 Other allergic rhinitis (principal)

== ENCOUNTER → 2017-03-22 | Outpatient (REF) | payer MEDICAID ==
[2017-03-22 12:50] LABS: ALBUMIN 3.8 GM/DL (3.2-5.2); ALBUMIN/GLOBULIN RATIO 1.06 (1.00-1.93); ALKALINE PHOSPHATASE 89 U/L (45-117); ALT/SGPT 36 U/L (12-78); ANION GAP 10 MEQ/L (8-16); AST/SGOT 25 U/L (7-37); BILIRUBIN,TOTAL 0.8 MG/DL (0.2-1.0); BLOOD UREA NITROGEN 13 MG/DL (7-18); CALCIUM LEVEL 9.9 MG/DL (8.8-10.2); CARBON DIOXIDE LEVEL 26 MEQ/L (21-32); CHLORIDE LEVEL 105 MEQ/L (98-107); CHOLESTEROL LEVEL 185 MG/DL (<200); CREATININE FOR GFR 1.22 MG/DL (0.70-1.30); FREE T4 1.03 NG/DL (0.76-1.46); GLOMERULAR FILTRATION RATE > 60.0 (>49); GLUCOSE, FASTING 99 MG/DL (80-110); SODIUM LEVEL 141 MEQ/L (136-145); TOTAL PROTEIN 7.4 GM/DL (6.4-8.2); TRIGLYCERIDES LEVEL 241 MG/DL (<150)
== END ==
LOC: M SFHCPLAZ 11:46
PROVIDERS: ATTEND Family Medicine
DX: E78.5 Hyperlipidemia, unspecified (principal); E03.9 Hypothyroidism, unspecified; R10.31 Right lower quadrant pain; R73.01 Impaired fasting glucose; N18.3 Chronic kidney disease, stage 3 (moderate); Z12.5 Encounter for screening for malignant neoplasm of prostate; J30.89 Other allergic rhinitis
CPT/HCPCS: 36415; 80053; 80061; 82550; 83036; 83970; 84439; 84443; 86803; G0103

== ENCOUNTER → 2017-06-28 | Outpatient (REF) | payer MEDICAID ==
[2017-06-28 12:04] LABS: BASO % 0.5 % (0.0-1.0); EOS # 0.4 10^3/uL (0.0-0.50); EOS % 6.1 % (0.0-3.0); HEMATOCRIT 42.5 % (42.0-52.0); HEMOGLOBIN 13.9 g/dl (14.0-18.0); IMMATURE GRANULOCYTE % 0.2 % (0-3.0); LYMPH # 2.2 10^3/uL (1.5-4.5); LYMPH % 35.7 % (24.0-44.0); MEAN CORPUSCULAR HEMOGLOBIN 33.5 pg (27.0-33.0); MEAN CORPUSCULAR HGB CONC 32.7 g/dl (32.0-36.5); MEAN CORPUSCULAR VOLUME 102.4 fl (80.0-96.0); MONO # 0.6 10^3/uL (0.0-0.8); NEUTROPHILS % 47.5 % (36.0-66.0); PLATELET COUNT, AUTOMATED 182 10^3/uL (150-450); RED BLOOD COUNT 4.15 10^6/uL (4.30-6.10); RED CELL DISTRIBUTION WIDTH 14.1 % (11.5-14.5); WHITE BLOOD COUNT 6.2 10^3/uL (4.0-10.0)
[2017-06-28 12:28] LABS: ALBUMIN 3.7 GM/DL (3.2-5.2); ALBUMIN/GLOBULIN RATIO 1.06 (1.00-1.93); ALKALINE PHOSPHATASE 95 U/L (45-117); ALT/SGPT 39 U/L (12-78); ANION GAP 8 MEQ/L (8-16); AST/SGOT 26 U/L (7-37); BILIRUBIN,TOTAL 0.5 MG/DL (0.2-1.0); BLOOD UREA NITROGEN 19 MG/DL (7-18); CALCIUM LEVEL 10.1 MG/DL (8.8-10.2); CARBON DIOXIDE LEVEL 29 MEQ/L (21-32); CHLORIDE LEVEL 105 MEQ/L (98-107); FERRITIN 915 NG/ML (26-388); GLOMERULAR FILTRATION RATE 54.5 (>49); GLUCOSE, FASTING 104 MG/DL (70-100); IRON (FE) 106 UG/DL (65-175); MAGNESIUM LEVEL 1.7 MG/DL (1.8-2.4); PERCENT SATURATION 38.3 % (19.7-50.0); POTASSIUM SERUM 4.1 MEQ/L (3.5-5.1); SODIUM LEVEL 142 MEQ/L (136-145); TOTAL IRON BINDING CAPACITY 277 UG/DL (250-450); TOTAL PROTEIN 7.2 GM/DL (6.4-8.2)
[2017-06-28 13:10] LABS: ESTIMATED AVERAGE GLUCOSE 137 MG/DL (60-110); HEMOGLOBIN A1c 6.4 %
== END ==
LOC: M SFHCPLAZ 07:53
DX: D50.9 Iron deficiency anemia, unspecified (principal); N18.3 Chronic kidney disease, stage 3 (moderate); R73.01 Impaired fasting glucose; Z12.5 Encounter for screening for malignant neoplasm of prostate

== ENCOUNTER 2017-07-13 10:45 | Emergency (ER) | payer MEDICAID ==
[2017-07-13 12:34] LABS: BASO % 0.5 % (0.0-1.0); EOS # 0.3 10^3/uL (0.0-0.50); EOS % 4.5 % (0.0-3.0); HEMATOCRIT 35.7 % (42.0-52.0); HEMOGLOBIN 12.3 g/dl (13.5-17.5); IMMATURE GRANULOCYTE % 0.3 % (0-3.0); LYMPH # 2.1 10^3/uL (1.5-4.5); LYMPH % 29.1 % (24.0-44.0); MEAN CORPUSCULAR HEMOGLOBIN 34.6 pg (27.0-33.0); MEAN CORPUSCULAR HGB CONC 34.5 g/dl (32.0-36.5); MEAN CORPUSCULAR VOLUME 100.3 fl (80.0-96.0); MONO # 0.8 10^3/uL (0.0-0.8); MONO % 11.2 % (0.0-5.0); NEUTROPHILS % 54.4 % (36.0-66.0); PLATELET COUNT, AUTOMATED 155 10^3/uL (150-450); RED BLOOD COUNT 3.56 10^6/uL (4.30-6.10); RED CELL DISTRIBUTION WIDTH 14.3 % (11.5-14.5); WHITE BLOOD COUNT 7.3 10^3/uL (4.0-10.0)
[2017-07-13 13:01] LABS: ALBUMIN 3.2 GM/DL (3.2-5.2); ALBUMIN/GLOBULIN RATIO 0.89 (1.00-1.93); ALKALINE PHOSPHATASE 94 U/L (45-117); ALT/SGPT 49 U/L (12-78); ANION GAP 6 MEQ/L (8-16); AST/SGOT 25 U/L (7-37); BILIRUBIN,DIRECT 0.1 MG/DL (0.0-0.2); BILIRUBIN,TOTAL 0.5 MG/DL (0.2-1.0); BLOOD UREA NITROGEN 12 MG/DL (7-18); CALCIUM LEVEL 9.3 MG/DL (8.8-10.2); CARBON DIOXIDE LEVEL 31 MEQ/L (21-32); CHLORIDE LEVEL 104 MEQ/L (98-107); CK-MB VALUE MASS 1.9 NG/ML (<3.6); CPK CREATINE PHOSPHOKINASE 184 U/L (39-308); CREATININE FOR GFR 1.15 MG/DL (0.70-1.30); GLOMERULAR FILTRATION RATE > 60.0 (>49); GLUCOSE, FASTING 88 MG/DL (70-100); LIPASE 149 U/L (73-393); MB/CK RELATIVE INDEX 1.03 (< OR =4); POTASSIUM SERUM 4.1 MEQ/L (3.5-5.1); SODIUM LEVEL 141 MEQ/L (136-145); TOTAL PROTEIN 6.8 GM/DL (6.4-8.2); TROPONIN I < 0.02 NG/ML (< 0.10)
[2017-07-13] MEDS ORDERED: ISOVUE-370 76% 100ML VIAL (Q9967) As Ordered (13:21)
== END 2017-07-13 16:00 | disposition home or self-care (01) ==
LOC: M ED 10:45
DX: R10.9 Unspecified abdominal pain (principal); K76.0 Fatty (change of) liver, not elsewhere classified; K57.30 Diverticulosis of large intestine without perforation or abscess without bleeding; N28.1 Cyst of kidney, acquired; K80.20 Calculus of gallbladder without cholecystitis without obstruction; K40.90 Unilateral inguinal hernia, without obstruction or gangrene, not specified as recurrent; I25.10 Atherosclerotic heart disease of native coronary artery without angina pectoris; I10 Essential (primary) hypertension; E78.5 Hyperlipidemia, unspecified; K29.70 Gastritis, unspecified, without bleeding; N18.9 Chronic kidney disease, unspecified; F32.9 Major depressive disorder, single episode, unspecified; D64.9 Anemia, unspecified; Z87.891 Personal history of nicotine dependence; Z79.82 Long term (current) use of aspirin; Z79.899 Other long term (current) drug therapy; Z88.6 Allergy status to analgesic agent; Z91.013 Allergy to seafood
CPT/HCPCS: Q9967

== ENCOUNTER 2017-08-05 22:15 | Emergency (ER) | payer MEDICAID ==
[2017-08-05 23:34] LABS: BASO % 0.5 % (0.0-1.0); EOS # 0.3 10^3/uL (0.0-0.50); HEMATOCRIT 37.5 % (42.0-52.0); HEMOGLOBIN 12.8 g/dl (13.5-17.5); IMMATURE GRANULOCYTE % 0.1 % (0-3.0); LYMPH # 2.4 10^3/uL (1.5-4.5); LYMPH % 28.6 % (24.0-44.0); MEAN CORPUSCULAR HEMOGLOBIN 34.6 pg (27.0-33.0); MEAN CORPUSCULAR HGB CONC 34.1 g/dl (32.0-36.5); MEAN CORPUSCULAR VOLUME 101.4 fl (80.0-96.0); MONO # 0.9 10^3/uL (0.0-0.8); NEUTROPHILS # 4.6 10^3/uL (1.8-7.7); NEUTROPHILS % 55.8 % (36.0-66.0); PLATELET COUNT, AUTOMATED 161 10^3/uL (150-450); RED CELL DISTRIBUTION WIDTH 13.9 % (11.5-14.5); WHITE BLOOD COUNT 8.3 10^3/uL (4.0-10.0)
[2017-08-05] MEDS ORDERED: ISOVUE-370 76% 100ML VIAL (Q9967) As Ordered (23:34)
[2017-08-05 23:46] LABS: ALBUMIN 3.2 GM/DL (3.2-5.2); ALBUMIN/GLOBULIN RATIO 0.76 (1.00-1.93); ALKALINE PHOSPHATASE 101 U/L (45-117); ALT/SGPT 36 U/L (12-78); ANION GAP 6 MEQ/L (8-16); AST/SGOT 23 U/L (7-37); BILIRUBIN,DIRECT < 0.1 MG/DL (0.0-0.2); BILIRUBIN,TOTAL 0.3 MG/DL (0.2-1.0); BLOOD UREA NITROGEN 14 MG/DL (7-18); CALCIUM LEVEL 9.7 MG/DL (8.8-10.2); CARBON DIOXIDE LEVEL 30 MEQ/L (21-32); CHLORIDE LEVEL 107 MEQ/L (98-107); CREATININE FOR GFR 1.36 MG/DL (0.70-1.30); GLOMERULAR FILTRATION RATE 56.2 (>49); GLUCOSE, FASTING 124 MG/DL (70-100); LIPASE 295 U/L (73-393); POTASSIUM SERUM 3.5 MEQ/L (3.5-5.1); SODIUM LEVEL 143 MEQ/L (136-145); TOTAL PROTEIN 7.4 GM/DL (6.4-8.2)
[2017-08-06] MEDS: MORPHINE 2 MG/ML 1ML SYRINGE (J2270) IV (00:49)
[2017-08-06] MEDS: ONDANSETRON 4MG/2ML VIAL (J2405) IV (00:49)
== END 2017-08-06 02:09 | disposition home or self-care (01) ==
LOC: M ED 22:15
DX: R10.9 Unspecified abdominal pain (principal); F17.210 Nicotine dependence, cigarettes, uncomplicated; Z91.013 Allergy to seafood; Z88.8 Allergy status to other drugs, medicaments and biological substances; Z79.899 Other long term (current) drug therapy; Z79.82 Long term (current) use of aspirin; Z79.51 Long term (current) use of inhaled steroids; Z79.890 Hormone replacement therapy
CPT/HCPCS: J2405

== ENCOUNTER → 2017-08-24 | Outpatient (REF) | payer MEDICAID ==
[2017-08-24 16:28] LABS: BASO % 0.6 % (0.0-1.0); EOS # 0.4 10^3/uL (0.0-0.50); EOS % 5.4 % (0.0-3.0); HEMATOCRIT 40.5 % (42.0-52.0); HEMOGLOBIN 13.3 g/dl (13.5-17.5); IMMATURE GRANULOCYTE % 0.1 % (0-3.0); LYMPH # 2.5 10^3/uL (1.5-4.5); LYMPH % 37.1 % (24.0-44.0); MEAN CORPUSCULAR HEMOGLOBIN 34.6 pg (27.0-33.0); MEAN CORPUSCULAR HGB CONC 32.8 g/dl (32.0-36.5); MEAN CORPUSCULAR VOLUME 105.5 fl (80.0-96.0); MONO # 0.8 10^3/uL (0.0-0.8); MONO % 12.1 % (0.0-5.0); NEUTROPHILS # 3.1 10^3/uL (1.8-7.7); NEUTROPHILS % 44.7 % (36.0-66.0); PLATELET COUNT, AUTOMATED 187 10^3/uL (150-450); RED BLOOD COUNT 3.84 10^6/uL (4.30-6.10); RED CELL DISTRIBUTION WIDTH 14.4 % (11.5-14.5); WHITE BLOOD COUNT 6.8 10^3/uL (4.0-10.0)
[2017-08-24 16:43] LABS: APPEARANCE, URINE CLEAR (CLEAR); BACTERIA, URINE AUTO NEGATIVE (NEGATIVE); BILIRUBIN, URINE AUTO NEGATIVE (NEGATIVE); BLOOD, URINE BLOOD NEGATIVE (NEGATIVE); COLOR, URINE STRAW (YELLOW); GLUCOSE, URINE (UA) AUTO NEGATIVE (NEGATIVE); KETONE, URINE AUTO NEGATIVE (NEGATIVE); LEUKOCYTE ESTERASE, URINE AUTO NEGATIVE (NEGATIVE); MUCUS, URINE SMALL (NEGATIVE); NITRITE, URINE AUTO NEGATIVE (NEGATIVE); PROTEIN, URINE AUTO NEGATIVE (NEGATIVE); RBC, URINE AUTO 0 /HPF (0-3); SPECIFIC GRAVITY URINE AUTO 1.005 (1.002-1.035); SQUAMOUS EPITHELIAL CELL UR AU 0 /HPF (0-6); UROBILINOGEN, URINE AUTO 0.2 mg/dL (0.0-2.0); WBC, URINE AUTO 0 /HPF (0-3)
[2017-08-24 17:16] LABS: ALBUMIN 3.7 GM/DL (3.2-5.2); ALBUMIN/GLOBULIN RATIO 0.95 (1.00-1.93); ALKALINE PHOSPHATASE 101 U/L (45-117); ALT/SGPT 39 U/L (12-78); ANION GAP 8 MEQ/L (8-16); AST/SGOT 24 U/L (7-37); BILIRUBIN,TOTAL 0.5 MG/DL (0.2-1.0); BLOOD UREA NITROGEN 15 MG/DL (7-18); CALCIUM LEVEL 10.2 MG/DL (8.8-10.2); CARBON DIOXIDE LEVEL 29 MEQ/L (21-32); CHLORIDE LEVEL 107 MEQ/L (98-107); CREATININE FOR GFR 1.36 MG/DL (0.70-1.30); GLOMERULAR FILTRATION RATE 56.2 (>49); GLUCOSE, FASTING 96 MG/DL (70-100); POTASSIUM SERUM 4.2 MEQ/L (3.5-5.1); PSA SCREENING 2.79 NG/ML (< 4.0); SODIUM LEVEL 144 MEQ/L (136-145); TOTAL PROTEIN 7.6 GM/DL (6.4-8.2)
== END ==
LOC: M SFHCPLAZ 14:03
DX: R35.0 Frequency of micturition (principal)
CPT/HCPCS: 87086

== ENCOUNTER → 2017-10-06 | Outpatient (REF) | payer MEDICAID ==
[2017-10-06 16:46] LABS: BASO % 0.4 % (0.0-1.0); EOS # 0.3 10^3/uL (0.0-0.50); EOS % 3.8 % (0.0-3.0); HEMOGLOBIN 13.5 g/dl (13.5-17.5); IMMATURE GRANULOCYTE % 0.3 % (0-3.0); LYMPH # 2.2 10^3/uL (1.5-4.5); LYMPH % 31.3 % (24.0-44.0); MEAN CORPUSCULAR HEMOGLOBIN 34.6 pg (27.0-33.0); MEAN CORPUSCULAR HGB CONC 32.9 g/dl (32.0-36.5); MEAN CORPUSCULAR VOLUME 105.1 fl (80.0-96.0); MONO # 0.8 10^3/uL (0.0-0.8); MONO % 11.2 % (0.0-5.0); NEUTROPHILS # 3.8 10^3/uL (1.8-7.7); PLATELET COUNT, AUTOMATED 168 10^3/uL (150-450); RED CELL DISTRIBUTION WIDTH 14.1 % (11.5-14.5); RETIC HEMOGLOBIN EQUIVALENT 36.7 pg (24-36); RETICULOCYTE # 82.3 10^9/L (17-77); RETICULOCYTE % 2.1 % (0.5-1.5); WHITE BLOOD COUNT 7.1 10^3/uL (4.0-10.0)
[2017-10-06 17:02] LABS: ALBUMIN 3.5 GM/DL (3.2-5.2); ALBUMIN/GLOBULIN RATIO 0.97 (1.00-1.93); ALKALINE PHOSPHATASE 107 U/L (45-117); ALT/SGPT 30 U/L (12-78); ANION GAP 9 MEQ/L (8-16); AST/SGOT 14 U/L (7-37); BILIRUBIN,TOTAL 0.3 MG/DL (0.2-1.0); BLOOD UREA NITROGEN 21 MG/DL (7-18); CALCIUM LEVEL 9.9 MG/DL (8.8-10.2); CARBON DIOXIDE LEVEL 29 MEQ/L (21-32); CHLORIDE LEVEL 107 MEQ/L (98-107); CREATININE FOR GFR 1.16 MG/DL (0.70-1.30); FREE T4 1.12 NG/DL (0.76-1.46); GLOMERULAR FILTRATION RATE > 60.0 (>49); GLUCOSE, FASTING 113 MG/DL (70-100); POTASSIUM SERUM 3.7 MEQ/L (3.5-5.1); PSA SCREENING 2.91 NG/ML (< 4.0); SODIUM LEVEL 145 MEQ/L (136-145); THYROID STIMULATING HORMONE 0.763 uIU/ML (0.358-3.740); TOTAL PROTEIN 7.1 GM/DL (6.4-8.2)
[2017-10-07 10:11] LABS: PTH INTACT 75.2 PG/ML (18.5-88.0); VITAMIN B12 LEVEL 423 PG/ML (247-911)
[2017-10-07 14:55] LABS: PRETREATED FOLATE FOR RBCFOL 15.2 NG/ML; RBC FOLATE 778.5 NG/ML (280-791)
[2017-10-10 11:09] LABS: ALBUMIN 3.77 GM/DL (3.29-5.55); ALBUMIN % 53.1 % (55.8-66.1); ALPHA-1-GLOBULIN % 4.5 % (2.9-4.9); ALPHA-1-GLOBULINS 0.32 GM/DL (0.17-0.41); ALPHA-2-GLOBULINS 0.81 GM/DL (0.42-0.99); ALPHA-2-GLOBULINS % 11.4 % (7.1-11.8); BETA-1-GLOBULINS 0.48 GM/DL (0.28-0.60); BETA-1-GLOBULINS % 6.7 % (4.7-7.2); BETA-2-GLOBULINS 0.62 GM/DL (0.19-0.55); BETA-2-GLOBULINS % 8.7 % (3.2-6.5); GAMMA GLOBULIN % 15.6 % (11.1-18.8); GAMMA GLOBULINS 1.11 GM/DL (0.65-1.58)
== END ==
LOC: M SFHCPLAZ 11:44
DX: D75.89 Other specified diseases of blood and blood-forming organs (principal); N18.3 Chronic kidney disease, stage 3 (moderate); E03.9 Hypothyroidism, unspecified; Z12.5 Encounter for screening for malignant neoplasm of prostate; E21.3 Hyperparathyroidism, unspecified
CPT/HCPCS: 84165

== ENCOUNTER 2017-11-02 22:20 | Emergency (ER) | payer MEDICAID ==
[2017-11-02 23:20] LABS: BASO # 0.1 10^3/uL (0.0-0.2); BASO % 0.6 % (0.0-1.0); EOS # 0.3 10^3/uL (0.0-0.50); HEMOGLOBIN 12.7 g/dl (13.5-17.5); IMMATURE GRANULOCYTE % 0.4 % (0-3.0); LYMPH # 2.6 10^3/uL (1.5-4.5); LYMPH % 27.8 % (24.0-44.0); MEAN CORPUSCULAR HEMOGLOBIN 34.3 pg (27.0-33.0); MEAN CORPUSCULAR HGB CONC 33.4 g/dl (32.0-36.5); MEAN CORPUSCULAR VOLUME 102.7 fl (80.0-96.0); MONO % 10.5 % (0.0-5.0); NEUTROPHILS # 5.4 10^3/uL (1.8-7.7); NEUTROPHILS % 57.7 % (36.0-66.0); PLATELET COUNT, AUTOMATED 167 10^3/uL (150-450); RED CELL DISTRIBUTION WIDTH 13.2 % (11.5-14.5); WHITE BLOOD COUNT 9.3 10^3/uL (4.0-10.0)
[2017-11-02 23:33] LABS: ANION GAP 9 MEQ/L (8-16); BLOOD UREA NITROGEN 17 MG/DL (7-18); CALCIUM LEVEL 9.9 MG/DL (8.8-10.2); CARBON DIOXIDE LEVEL 28 MEQ/L (21-32); CHLORIDE LEVEL 107 MEQ/L (98-107); CK-MB VALUE MASS 5.8 NG/ML (<3.6); CPK CREATINE PHOSPHOKINASE 587 U/L (39-308); CREATININE FOR GFR 1.36 MG/DL (0.70-1.30); GLOMERULAR FILTRATION RATE 56.2 (>49); GLUCOSE, FASTING 111 MG/DL (70-100); MB/CK RELATIVE INDEX 0.98 (< OR =4); POTASSIUM SERUM 3.2 MEQ/L (3.5-5.1); SODIUM LEVEL 144 MEQ/L (136-145); TROPONIN I 0.02 NG/ML (< 0.10)
[2017-11-03] MEDS: POTASSIUM CHLORIDE 10 MEQ SR TABLET PO (00:03)
[2017-11-03 04:08] LABS: CPK CREATINE PHOSPHOKINASE 655 U/L (39-308); TROPONIN I < 0.02 NG/ML (< 0.10)
[2017-11-03 04:09] LABS: CK-MB VALUE MASS 5.6 NG/ML (<3.6); MB/CK RELATIVE INDEX 0.85 (< OR =4)
== END 2017-11-03 04:29 | disposition home or self-care (01) ==
LOC: M ED 11-03 04:29
DX: R07.89 Other chest pain (principal); I25.10 Atherosclerotic heart disease of native coronary artery without angina pectoris; I13.10 Hypertensive heart and chronic kidney disease without heart failure, with stage 1 through stage 4 chronic kidney disease, or unspecified chronic kidney disease; E78.5 Hyperlipidemia, unspecified; J44.9 Chronic obstructive pulmonary disease, unspecified; G47.33 Obstructive sleep apnea (adult) (pediatric); N18.3 Chronic kidney disease, stage 3 (moderate); D50.9 Iron deficiency anemia, unspecified; G50.0 Trigeminal neuralgia; F32.9 Major depressive disorder, single episode, unspecified; K57.92 Diverticulitis of intestine, part unspecified, without perforation or abscess without bleeding; K21.9 Gastro-esophageal reflux disease without esophagitis; Z91.013 Allergy to seafood; Z88.8 Allergy status to other drugs, medicaments and biological substances; Z79.899 Other long term (current) drug therapy; Z79.82 Long term (current) use of aspirin; Z79.51 Long term (current) use of inhaled steroids
CPT/HCPCS: 71045

== ENCOUNTER → 2017-11-07 | Outpatient (CLI) | payer MEDICAID | LOC: M RAD 12:14 | DX: L73.2 Hidradenitis suppurativa (principal) ==

== ENCOUNTER 2017-11-10 04:15 | Emergency (ER) | payer MEDICAID | END 2017-11-10 06:49 | disposition home or self-care (01) | LOC: M ED 04:15 | DX: R05 Cough (principal); J44.9 Chronic obstructive pulmonary disease, unspecified; Z87.891 Personal history of nicotine dependence; Z79.82 Long term (current) use of aspirin; Z79.899 Other long term (current) drug therapy; Z88.6 Allergy status to analgesic agent; Z91.013 Allergy to seafood | CPT/HCPCS: 71046 ==

== ENCOUNTER → 2017-11-14 | Outpatient (REF) | payer MEDICAID ==
[2017-11-14 15:55] LABS: ALBUMIN 3.3 GM/DL (3.2-5.2); ANION GAP 6 MEQ/L (8-16); BLOOD UREA NITROGEN 12 MG/DL (7-18); CALCIUM LEVEL 9.6 MG/DL (8.8-10.2); CARBON DIOXIDE LEVEL 31 MEQ/L (21-32); CHLORIDE LEVEL 107 MEQ/L (98-107); CPK CREATINE PHOSPHOKINASE 139 U/L (39-308); CREATININE FOR GFR 1.28 MG/DL (0.70-1.30); GLOMERULAR FILTRATION RATE > 60.0 (>49); GLUCOSE, FASTING 87 MG/DL (70-100); MAGNESIUM LEVEL 1.7 MG/DL (1.8-2.4); MB/CK RELATIVE INDEX 1.43 (< OR =4); PHOSPHORUS LEVEL 2.6 MG/DL (2.5-4.9); POTASSIUM SERUM 4.1 MEQ/L (3.5-5.1); SODIUM LEVEL 144 MEQ/L (136-145); TROPONIN I < 0.02 NG/ML (< 0.10)
[2017-11-17 00:13] LABS: CK 1 (BB) 0 % (0); CK 2 (MB) 0 % (0-3); CK 3 (MM) 100 % (97-100); CK MACRO I PERCENT 0 % (Not Observed); CK MACRO II PERCENT 0 % (Not Observed); CK TOTAL 149 U/L (24-204)
== END ==
LOC: M SFHCPLAZ 13:10
DX: R07.9 Chest pain, unspecified (principal)

== ENCOUNTER → 2018-01-31 | Outpatient (REF) | payer MEDICAID ==
[2018-01-31 11:20] LABS: ESTIMATED AVERAGE GLUCOSE 137 MG/DL (60-110); HEMOGLOBIN A1c 6.4 %
[2018-01-31 11:22] LABS: BASO # 0.1 10^3/uL (0.0-0.2); BASO % 0.5 % (0.0-1.0); EOS # 0.3 10^3/uL (0.0-0.50); EOS % 3.6 % (0.0-3.0); HEMATOCRIT 43.2 % (42.0-52.0); HEMOGLOBIN 14.1 g/dl (13.5-17.5); IMMATURE GRANULOCYTE % 0.2 % (0-3.0); LYMPH # 1.8 10^3/uL (1.5-4.5); LYMPH % 19.1 % (24.0-44.0); MEAN CORPUSCULAR HEMOGLOBIN 33.6 pg (27.0-33.0); MEAN CORPUSCULAR HGB CONC 32.6 g/dl (32.0-36.5); MEAN CORPUSCULAR VOLUME 102.9 fl (80.0-96.0); MONO # 0.8 10^3/uL (0.0-0.8); MONO % 8.3 % (0.0-5.0); NEUTROPHILS # 6.2 10^3/uL (1.8-7.7); NEUTROPHILS % 68.3 % (36.0-66.0); PLATELET COUNT, AUTOMATED 196 10^3/uL (150-450); RED CELL DISTRIBUTION WIDTH 14.3 % (11.5-14.5); WHITE BLOOD COUNT 9.2 10^3/uL (4.0-10.0)
[2018-01-31 17:49] LABS: C REACTIVE PROTEIN QUANTITATIV 0.72 MG/DL (0.00-0.30); CHOLESTEROL LEVEL 160 MG/DL (<200); CPK CREATINE PHOSPHOKINASE 117 U/L (39-308); HDL CHOLESTEROL 40 MG/DL (>40); LDL CHOLESTEROL 73 MG/DL (<100); MAGNESIUM LEVEL 1.5 MG/DL (1.8-2.4); NON-HDL-C 120 MG/DL; PSA SCREENING 2.42 NG/ML (< 4.0); TRIGLYCERIDES LEVEL 235 MG/DL (<150); URIC ACID 5.7 MG/DL (3.5-7.2)
== END ==
LOC: M SFHCPLAZ 08:52
DX: D75.89 Other specified diseases of blood and blood-forming organs (principal); E78.5 Hyperlipidemia, unspecified; R73.01 Impaired fasting glucose; Z12.5 Encounter for screening for malignant neoplasm of prostate; M10.9 Gout, unspecified
CPT/HCPCS: 82550

== ENCOUNTER 2018-02-17 21:22 | Emergency (ER) | payer MEDICAID ==
[2018-02-17 21:52] LABS: BASO % 0.3 % (0.0-1.0); EOS # 0.3 10^3/uL (0.0-0.50); EOS % 2.3 % (0.0-3.0); HEMATOCRIT 38.9 % (42.0-52.0); IMMATURE GRANULOCYTE % 0.2 % (0-3.0); LYMPH # 2.3 10^3/uL (1.5-4.5); LYMPH % 20.6 % (24.0-44.0); MEAN CORPUSCULAR HEMOGLOBIN 33.8 pg (27.0-33.0); MEAN CORPUSCULAR HGB CONC 33.4 g/dl (32.0-36.5); MONO # 1.1 10^3/uL (0.0-0.8); MONO % 10.1 % (0.0-5.0); NEUTROPHILS # 7.4 10^3/uL (1.8-7.7); NEUTROPHILS % 66.5 % (36.0-66.0); PLATELET COUNT, AUTOMATED 182 10^3/uL (150-450); RED BLOOD COUNT 3.85 10^6/uL (4.30-6.10); RED CELL DISTRIBUTION WIDTH 13.9 % (11.5-14.5); WHITE BLOOD COUNT 11.1 10^3/uL (4.0-10.0)
[2018-02-17] MEDS: NS 1,000 ML IV (22:04)
[2018-02-17] MEDS: ONDANSETRON 4MG/2ML VIAL (J2405) IV (22:05)
[2018-02-17] MEDS: PANTOPRAZOLE 40MG INJ (PROTONIX) (C9113) IV (22:05)
[2018-02-17 22:14] LABS: ALBUMIN 3.1 GM/DL (3.2-5.2); ALBUMIN/GLOBULIN RATIO 0.82 (1.00-1.93); ALKALINE PHOSPHATASE 92 U/L (45-117); ALT/SGPT 29 U/L (12-78); ANION GAP 8 MEQ/L (8-16); AST/SGOT 20 U/L (7-37); BILIRUBIN,DIRECT 0.2 MG/DL (0.0-0.2); BILIRUBIN,TOTAL 0.7 MG/DL (0.2-1.0); BLOOD UREA NITROGEN 15 MG/DL (7-18); CALCIUM LEVEL 9.5 MG/DL (8.8-10.2); CARBON DIOXIDE LEVEL 28 MEQ/L (21-32); CHLORIDE LEVEL 102 MEQ/L (98-107); CREATININE FOR GFR 1.37 MG/DL (0.70-1.30); GLOMERULAR FILTRATION RATE 55.7 (>49); GLUCOSE, FASTING 114 MG/DL (70-100); LIPASE 196 U/L (73-393); POTASSIUM SERUM 3.7 MEQ/L (3.5-5.1); SODIUM LEVEL 138 MEQ/L (136-145); TOTAL PROTEIN 6.9 GM/DL (6.4-8.2)
[2018-02-17 23:33] LABS: KETONE, URINE AUTO RFX NEGATIVE (NEGATIVE); LEUKOCYTE ESTERASE UR AUTO RFX NEGATIVE (NEGATIVE); MUCUS, URINE RFX SMALL (NEGATIVE); NITRITE, URINE AUTO RFX NEGATIVE (NEGATIVE); RBC, URINE AUTO RFX 4 /HPF (0-3); SPECIFIC GRAVITY UR AUTO RFX 1.014 (1.002-1.035); SQUAM EPITHELIAL CELL UR AURFX 0 /HPF (0-6); WBC, URINE AUTO RFX 1 /HPF (0-3)
== END 2018-02-17 23:53 | disposition home or self-care (01) ==
LOC: M ED 21:22
DX: K59.00 Constipation, unspecified (principal); E11.9 Type 2 diabetes mellitus without complications; I10 Essential (primary) hypertension; I25.2 Old myocardial infarction; J45.909 Unspecified asthma, uncomplicated; E07.9 Disorder of thyroid, unspecified; Z88.8 Allergy status to other drugs, medicaments and biological substances; Z91.013 Allergy to seafood; Z79.899 Other long term (current) drug therapy; Z79.82 Long term (current) use of aspirin; Z79.51 Long term (current) use of inhaled steroids
CPT/HCPCS: C9113

== ENCOUNTER 2018-04-18 21:00 | Emergency (ER) | payer MEDICAID ==
[~2018-04-18 21:00] MED LIST changes: +ADV500INH; +ADV500INH INH; +ADVAIR; +BACT2CRE TOP; +DOXY100C PO; +FLOM0.4C39 PO; +LEVO88TA3 PO; +MAPA500T2 PO; +SING10TA32 PO; +SPIR1CAP INH; +TESS100C PO; +VOLT1GEL15 TOP
[2018-04-18] MEDS ORDERED: NS 1,000 ML IV ONE (22:45)
[2018-04-18 23:28] LABS: BASO # 0.1 10^3/uL (0.0-0.2); BASO % 0.5 % (0.0-1.0); EOS # 0.4 10^3/uL (0.0-0.50); EOS % 3.3 % (0.0-3.0); HEMATOCRIT 39.6 % (42.0-52.0); LYMPH % 18.9 % (24.0-44.0); MEAN CORPUSCULAR HEMOGLOBIN 33.9 pg (27.0-33.0); MEAN CORPUSCULAR HGB CONC 32.8 g/dl (32.0-36.5); MEAN CORPUSCULAR VOLUME 103.4 fl (80.0-96.0); MONO # 1.1 10^3/uL (0.0-0.8); MONO % 10.4 % (0.0-5.0); NEUTROPHILS # 7.2 10^3/uL (1.8-7.7); NEUTROPHILS % 66.6 % (36.0-66.0); PLATELET COUNT, AUTOMATED 179 10^3/uL (150-450); RED BLOOD COUNT 3.83 10^6/uL (4.30-6.10); WHITE BLOOD COUNT 10.8 10^3/uL (4.0-10.0)
[2018-04-18] MEDS ORDERED: ISOVUE-370 76% 100ML VIAL (Q9967) As Ordered ONE (23:32)
[2018-04-18] MEDS: MORPHINE 2 MG/ML 1ML SYRINGE (J2270) IV PRN (23:36)
[2018-04-19 00:54] LABS: ALBUMIN 3.2 GM/DL (3.2-5.2); ALT/SGPT 23 U/L (12-78); BILIRUBIN,TOTAL 0.3 MG/DL (0.2-1.0); BLOOD UREA NITROGEN 18 MG/DL (7-18); CALCIUM LEVEL 9.6 MG/DL (8.8-10.2); CARBON DIOXIDE LEVEL 29 MEQ/L (21-32); CHLORIDE LEVEL 108 MEQ/L (98-107); CREATININE FOR GFR 1.18 MG/DL (0.70-1.30); GLOMERULAR FILTRATION RATE > 60.0 (>49); GLUCOSE, FASTING 108 MG/DL (70-100); LIPASE 183 U/L (73-393); POTASSIUM SERUM 4.2 MEQ/L (3.5-5.1); SODIUM LEVEL 142 MEQ/L (136-145); TOTAL PROTEIN 6.8 GM/DL (6.4-8.2)
[2018-04-19] MEDS: MORPHINE 2 MG/ML 1ML SYRINGE (J2270) IV PRN (00:57)
[2018-04-19] MEDS ORDERED: FLAG500T PO (04:12)
[2018-04-19] MEDS ORDERED: CIPR-249 PO (04:12)
[2018-04-19] MEDS ORDERED: CIPROFLOXACIN 400 MG in APPROPRIATE DILUENT 1 EA IV ONE (04:15)
[2018-04-19] MEDS ORDERED: metroNIDAZOLE 750 MG in APPROPRIATE DILUENT 1 EA IV ONE (04:15)
[2018-04-19 06:43] VITALS: BP 111/57
--- NOTE | 2018-04-19 08:17 | REP ---
REPEAT DICTATION CT ABDOMEN AND PELVIS WITH IV BUT WITHOUT ORAL CONTRAST: HISTORY: Left lower quadrant abdominal pain. History of diverticulosis and inguinal hernia. Preliminary report was provided at the time of exam by [facility]. CT CONTRAST DOSE: 100 mL of intravenous Isovue [address] FINDINGS: Digital preliminary smoking tobacco packing machine hand radiograph is unremarkable. The lung bases are free of infiltrate. There is fatty infiltration of the liver diffusely. No focal liver lesion is seen. There are gallstones in the dependent portion the gallbladder. The spleen is unremarkable. No adrenal lesion is seen on either side. Pancreas is intact. There is a parapelvic cyst in the left kidney again seen measuring 6.1 cm in craniocaudal dimension. This is felt to be unchanged from comparison CT study including October 07, 2014. No hydronephrosis is seen. There are smaller cysts bilaterally. No retroperitoneal mass or adenopathy is seen. Urinary bladder, prostate and seminal vesicles are unremarkable. The patient appears to be status left inguinal and ventral abdominal hernia repair. No abdominal wall defect is seen. There is mural thickening, diverticulosis, and pericolonic fat stranding in the sigmoid colon consistent with acute diverticulitis. This focus is located relatively high in the left lower quadrant just beneath the level of the umbilicus. There is no evidence of abscess, free air, or fistula. No bony destructive lesion is seen. IMPRESSION: Findings of acute diverticulitis affecting the sigmoid colon. No evidence of abscess or free air. Electronically Signed by Pramod Campo MD 04/19/2018 09:33 A
== END 2018-04-19 06:55 | disposition home or self-care (01) ==
LOC: M ED 21:00
DX: K57.32 Diverticulitis of large intestine without perforation or abscess without bleeding (principal); N50.812 Left testicular pain; E11.9 Type 2 diabetes mellitus without complications; I25.2 Old myocardial infarction; J44.9 Chronic obstructive pulmonary disease, unspecified; N40.0 Benign prostatic hyperplasia without lower urinary tract symptoms; Z87.891 Personal history of nicotine dependence; Z91.013 Allergy to seafood; Z88.8 Allergy status to other drugs, medicaments and biological substances; Z79.899 Other long term (current) drug therapy; Z79.82 Long term (current) use of aspirin
CPT/HCPCS: 74177; 80053; 83690; 85025; 96361; 96365; 96366; 96368; 96375; 96376; 99284; J0744; J2270; Q9967

== ENCOUNTER → 2018-04-25 | Outpatient (REF) | payer MEDICAID ==
[~2018-04-25] MED LIST changes: +CIPR-249 PO; +FLAG500T PO
[2018-04-25 15:51] LABS: BASO % 0.5 % (0.0-1.0); EOS # 0.3 10^3/uL (0.0-0.50); EOS % 4.5 % (0.0-3.0); HEMATOCRIT 42.3 % (42.0-52.0); HEMOGLOBIN 13.5 g/dl (13.5-17.5); LYMPH # 1.4 10^3/uL (1.5-4.5); LYMPH % 18.7 % (24.0-44.0); MEAN CORPUSCULAR HEMOGLOBIN 33.3 pg (27.0-33.0); MEAN CORPUSCULAR HGB CONC 31.9 g/dl (32.0-36.5); MEAN CORPUSCULAR VOLUME 104.4 fl (80.0-96.0); MONO # 0.9 10^3/uL (0.0-0.8); MONO % 12.9 % (0.0-5.0); NEUTROPHILS # 4.6 10^3/uL (1.8-7.7); NEUTROPHILS % 63.1 % (36.0-66.0); PLATELET COUNT, AUTOMATED 194 10^3/uL (150-450); RED BLOOD COUNT 4.05 10^6/uL (4.30-6.10); WHITE BLOOD COUNT 7.3 10^3/uL (4.0-10.0)
[2018-04-25 16:13] LABS: HEMOGLOBIN A1c 6.3 %
[2018-04-25 16:23] LABS: ALBUMIN 3.4 GM/DL (3.2-5.2); BILIRUBIN,TOTAL 0.3 MG/DL (0.2-1.0); CALCIUM LEVEL 9.6 MG/DL (8.8-10.2); CREATININE FOR GFR 1.49 MG/DL (0.70-1.30); FREE T4 1.25 NG/DL (0.76-1.46); GLOMERULAR FILTRATION RATE 50.5 (>49); THYROID STIMULATING HORMONE 2.82 uIU/ML (0.358-3.740)
[2018-04-25 16:54] LABS: PTH INTACT 178.5 PG/ML (18.5-88.0); TOTAL 25(OH) VITAMIN D 24.7 NG/ML (30.0-100.0)
== END ==
LOC: M SFHCPLAZ 14:40
PROVIDERS: ATTEND Physician Assistant Medical
DX: N18.3 Chronic kidney disease, stage 3 (moderate) (principal); E03.9 Hypothyroidism, unspecified; R73.01 Impaired fasting glucose

== ENCOUNTER 2018-05-07 14:36 | Emergency (ER) | payer MEDICAID ==
[~2018-05-07] VITALS: Ht 162.6 cm; Wt 93.6 kg
[2018-05-07] MEDS ORDERED: PREPCRE TOP (15:09)
[2018-05-07 15:21] VITALS: BP 132/62
== END 2018-05-07 15:22 | disposition home or self-care (01) ==
LOC: M ED 14:36
DX: K64.4 Residual hemorrhoidal skin tags (principal); I10 Essential (primary) hypertension; E78.5 Hyperlipidemia, unspecified; I25.2 Old myocardial infarction; K21.9 Gastro-esophageal reflux disease without esophagitis; N40.0 Benign prostatic hyperplasia without lower urinary tract symptoms; G47.30 Sleep apnea, unspecified; Z79.899 Other long term (current) drug therapy; Z79.890 Hormone replacement therapy; Z79.82 Long term (current) use of aspirin; Z88.8 Allergy status to other drugs, medicaments and biological substances; Z91.013 Allergy to seafood; Z87.891 Personal history of nicotine dependence

== ENCOUNTER → 2018-05-08 | Outpatient (REF) | payer MEDICAID ==
[~2018-05-08] MED LIST changes: +PREPCRE TOP
== END ==
LOC: M SFHCPLAZ 15:39
PROVIDERS: ATTEND Family Medicine
DX: L02.91 Cutaneous abscess, unspecified (principal)

== ENCOUNTER 2018-09-03 23:33 | Emergency (ER) | payer MEDICAID ==
[~2018-09-03] VITALS: Ht 162.6 cm; Wt 94.5 kg
[~2018-09-03 23:33] MED LIST changes: -/ADVA50050 IN; -/ADVA50050 INH; -/ATOR40TA OR; -/FENO48TA OR; +ADVA1AER2 IN; +ADVA1AER2 INH; +LIPI1TAB2 OR; +TRIC1TAB OR
[2018-09-04 00:26] LABS: BASO % 0.2 % (0.0-1.0); EOS % 0.1 % (0.0-3.0); HEMATOCRIT 40.6 % (42.0-52.0); HEMOGLOBIN 13.5 g/dl (13.5-17.5); LYMPH # 0.9 10^3/uL (1.5-4.5); LYMPH % 9.4 % (24.0-44.0); MEAN CORPUSCULAR HEMOGLOBIN 34.5 pg (27.0-33.0); MEAN CORPUSCULAR HGB CONC 33.3 g/dl (32.0-36.5); MEAN CORPUSCULAR VOLUME 103.8 fl (80.0-96.0); MONO # 0.8 10^3/uL (0.0-0.8); MONO % 8.3 % (0.0-5.0); NEUTROPHILS # 7.8 10^3/uL (1.8-7.7); NEUTROPHILS % 81.6 % (36.0-66.0); PLATELET COUNT, AUTOMATED 169 10^3/uL (150-450); RED BLOOD COUNT 3.91 10^6/uL (4.30-6.10); WHITE BLOOD COUNT 9.5 10^3/uL (4.0-10.0)
[2018-09-04 00:29] LABS: ALBUMIN 3.2 GM/DL (3.2-5.2); BILIRUBIN,DIRECT 0.1 MG/DL (0.0-0.2); BILIRUBIN,TOTAL 0.5 MG/DL (0.2-1.0); CALCIUM LEVEL 9.4 MG/DL (8.8-10.2); CREATININE FOR GFR 1.49 MG/DL (0.70-1.30); GLOMERULAR FILTRATION RATE 50.4 (>49); POTASSIUM SERUM 3.8 MEQ/L (3.5-5.1); TOTAL PROTEIN 7.1 GM/DL (6.4-8.2)
[2018-09-04] MEDS ORDERED: ACETAMINOPHEN TAB 650MG DOSE (2X325MG) PO ONE (01:15)
[2018-09-04 01:45] LABS: APPEARANCE, URINE CLEAR (CLEAR); BACTERIA, URINE AUTO NEGATIVE (NEGATIVE); BILIRUBIN, URINE AUTO NEGATIVE (NEGATIVE); BLOOD, URINE BLOOD NEGATIVE (NEGATIVE); COLOR, URINE YELLOW (YELLOW); GLUCOSE, URINE (UA) AUTO NEGATIVE (NEGATIVE); KETONE, URINE AUTO NEGATIVE (NEGATIVE); LEUKOCYTE ESTERASE, URINE AUTO NEGATIVE (NEGATIVE); MUCUS, URINE SMALL (NEGATIVE); NITRITE, URINE AUTO NEGATIVE (NEGATIVE); PROTEIN, URINE AUTO 1+ mg/dL (NEGATIVE); RBC, URINE AUTO 1 /HPF (0-3); SPECIFIC GRAVITY URINE AUTO 1.021 (1.002-1.035); SQUAMOUS EPITHELIAL CELL UR AU 0 /HPF (0-6); UROBILINOGEN, URINE AUTO 0.2 mg/dL (0.0-2.0); WBC, URINE AUTO 1 /HPF (0-3)
[2018-09-04 05:15] VITALS: BP 142/78
--- NOTE | 2018-09-04 09:02 | REP ---
Clinical: Systemic inflammatory response syndrome . Comparison: 02/17/2018 . Findings: The mediastinum and cardiac silhouette are stable and within normal limits for portable technique. Subtle area of opacity in the left base with blunting of the costophrenic angle may represent small infiltrate and pleural reaction. Skeletal structures are intact. Impression: Possible small area of infiltrate and pleural reaction at the left base. Electronically Signed by Cr Dhillon MD 09/04/2018 08:54 A
--- NOTE | 2018-09-06 15:28 | REP ---
Clinical: Cough and pleuritic chest pain. Technique: Axial noncontrast images from the thoracic inlet to the upper abdomen with coronal and sagittal re-formations. Comparison: 10/08/2013 Findings: Trace chronic linear fibroatelectatic changes in the left lower lung zone are again identified and unchanged compared to 2013. No acute consolidation, obvious nodule or mass lesion. No pleural effusion. No pneumothorax. Tracheobronchial tree is patent. Mediastinum demonstrates relatively normal thoracic aorta, pulmonary vasculature and heart/pericardium. Minimal atherosclerotic changes noted. No pericardial effusion. Surrounding musculoskeletal structures are intact. Impression: Chronic linear plate-like scarring in the left mid/lower lung zone. No acute mediastinal or pleuroparenchymal process appreciated. Electronically Signed by Cr Dhillon MD 09/06/2018 03:19 P
--- NOTE | 2018-09-06 16:32 | ED PDOC ---
Post-Departure Follow-Up chart reviewed - ed charge histotechnologist called pt - see note. nelida mota. will fax cxr to dr mota for Corey Ochoa MD September 06, 2018 16:32
== END 2018-09-04 05:36 | disposition home or self-care (01) ==
LOC: M ED 23:33
DX: R50.9 Fever, unspecified (principal); J44.9 Chronic obstructive pulmonary disease, unspecified; J43.9 Emphysema, unspecified; G47.30 Sleep apnea, unspecified; Z87.891 Personal history of nicotine dependence; Z79.82 Long term (current) use of aspirin; Z79.899 Other long term (current) drug therapy; Z88.6 Allergy status to analgesic agent; Z91.013 Allergy to seafood

== ENCOUNTER → 2018-09-05 | Outpatient (REF) | payer MEDICAID ==
[~2018-09-05] MED LIST changes: +ATOR40TA75 PO; +CIPR500T3 PO; +COLA100C5 PO; +DIFI200T PO; +ECOT81TA5 PO; +FOLI1TAB11 PO; +IPRA0.00 INH; +LORA-674 PO; +NITR4TASL SL; +OMEP40CA2 PO; +PARO20TA3 PO; +VENTAER INH; +ZOFR4TAB16 PO; +ZYLO300T6 PO
== END ==
LOC: M SFHCPLAZ 10:08
PROVIDERS: ATTEND Family Medicine
DX: A09 Infectious gastroenteritis and colitis, unspecified (principal)

== ENCOUNTER 2018-09-10 10:45 | Inpatient (IN) | payer MEDICAID ==
[~2018-09-10] VITALS: Ht 162.6 cm; Wt 89.5 kg
[~2018-09-10 10:45] MED LIST changes: -ATOR40TA75 PO; -CIPR500T3 PO; -COLA100C5 PO; -DIFI200T PO; -ECOT81TA5 PO; -FOLI1TAB11 PO; -IPRA0.00 INH; -LORA-674 PO; -NITR4TASL SL; -OMEP40CA2 PO; -PARO20TA3 PO; -VENTAER INH; -ZOFR4TAB16 PO; -ZYLO300T6 PO
[2018-09-10] MEDS ORDERED: CIPR500T3 PO (11:03)
[2018-09-10] MEDS ORDERED: NS 1,000 ML IV ONE (11:15)
[2018-09-10] MEDS ORDERED: ONDANSETRON 4MG/2ML VIAL (J2405) IV ONE (11:15)
[2018-09-10 11:37] LABS: BASO % 0.5 % (0.0-1.0); EOS # 0.1 10^3/uL (0.0-0.50); HEMATOCRIT 38.6 % (42.0-52.0); HEMOGLOBIN 13.6 g/dl (13.5-17.5); LYMPH # 1.1 10^3/uL (1.5-4.5); LYMPH % 12.6 % (24.0-44.0); MEAN CORPUSCULAR HEMOGLOBIN 34.6 pg (27.0-33.0); MEAN CORPUSCULAR HGB CONC 35.2 g/dl (32.0-36.5); MEAN CORPUSCULAR VOLUME 98.2 fl (80.0-96.0); MONO # 1.1 10^3/uL (0.0-0.8); MONO % 12.4 % (0.0-5.0); NEUTROPHILS # 6.4 10^3/uL (1.8-7.7); NEUTROPHILS % 72.8 % (36.0-66.0); PLATELET COUNT, AUTOMATED 219 10^3/uL (150-450); RED BLOOD COUNT 3.93 10^6/uL (4.30-6.10); WHITE BLOOD COUNT 8.8 10^3/uL (4.0-10.0)
[2018-09-10 11:58] LABS: ALBUMIN 3.1 GM/DL (3.2-5.2); BILIRUBIN,TOTAL 0.4 MG/DL (0.2-1.0); CALCIUM LEVEL 10.8 MG/DL (8.8-10.2); CREATININE FOR GFR 1.65 MG/DL (0.70-1.30); GLOMERULAR FILTRATION RATE 44.8 (>49); POTASSIUM SERUM 3.2 MEQ/L (3.5-5.1)
[2018-09-10] MEDS ORDERED: PARO20TA3 PO (11:58)
[2018-09-10] MEDS ORDERED: COLA100C5 PO (11:58)
[2018-09-10] MEDS ORDERED: ECOT81TA5 PO (11:58)
[2018-09-10] MEDS ORDERED: ATOR40TA75 PO (11:58)
[2018-09-10] MEDS ORDERED: LORA-674 PO (11:58)
[2018-09-10] MEDS ORDERED: ZOFR4TAB16 PO (11:58)
[2018-09-10] MEDS ORDERED: IPRA0.00 INH (11:58)
[2018-09-10] MEDS ORDERED: VENTAER INH (11:58)
[2018-09-10] MEDS ORDERED: FOLI1TAB11 PO (11:58)
[2018-09-10] MEDS ORDERED: ZYLO300T6 PO (11:58)
[2018-09-10] MEDS ORDERED: OMEP40CA2 PO (11:58)
[2018-09-10] MEDS ORDERED: NITR4TASL SL (11:58)
[2018-09-10] MEDS ORDERED: FIDAXOMICIN 200 MG TAB (DIFICID) PO ONE (12:00)
[2018-09-10] MEDS ORDERED: NS 1,000 ML IV SCH (12:42)
[2018-09-10] MEDS ORDERED: ALBUTEROL 90 MCG/ACT 8GM HFA INHALER INH PRN (12:45)
[2018-09-10] MEDS ORDERED: IPRATROPIUM 0.5MG/ALBUTEROL 2.5MG INH SOL UD 3ML (DUONEB)(J7620) INH PRN (12:45)
[2018-09-10] MEDS ORDERED: NITROGLYCERIN 0.4 MG SUBL TABLET SL PRN (12:45)
[2018-09-10 13:23] LABS: MAGNESIUM LEVEL 1.6 MG/DL (1.8-2.4)
[2018-09-10 14:40] VITALS: BP 127/71
[2018-09-10] MEDS: ACETAMINOPHEN 500 MG TAB PO PRN (15:26)
[2018-09-10] MEDS: ONDANSETRON 4 MG TAB (S0181) PO PRN (15:27)
[2018-09-10] MEDS: KCL 40MEQ in NS 1000ML 1,000 ML IV SCH ×2 (15:27→20:50)
[2018-09-10] MEDS: FOLIC ACID 1 MG TAB PO SCH (15:27)
[2018-09-10] MEDS: CIPROFLOXACIN 500 MG TAB PO SCH (17:52)
[2018-09-10] MEDS: MAG SULF 1GM/100ML (MAG RUN) 1 GM in APPROPRIATE DILUENT 1 EA IV SCH ×2 (17:52→18:50)
[2018-09-10] MEDS: ADVAIR HFA 230/21MCG INHALER INH SCH (20:04)
[2018-09-10] MEDS: TAMSULOSIN 0.4 MG CAP PO SCH (20:48)
[2018-09-10] MEDS: ATORVASTATIN 20 MG TAB PO SCH (20:48)
[2018-09-10] MEDS: ENOXAPARIN 40 MG/0.4 ML SYRINGE (J1650) SC SCH (20:48)
[2018-09-10] MEDS: MONTELUKAST 10 MG TAB PO SCH (20:49)
[2018-09-10] MEDS: FIDAXOMICIN 200 MG TAB (DIFICID) PO SCH (20:49)
[2018-09-10] MEDS: ASPIRIN 81 MG ENTERIC TAB PO SCH (20:49)
[2018-09-10] MEDS: PARoxetine 20 MG TAB PO SCH (20:49)
[2018-09-10] MEDS: DICLOFENAC EPOLAMINE 1.3 % PATCH TOP SCH (20:49)
[2018-09-10 22:00] VITALS: BP 127/71
[2018-09-11 06:00] VITALS: BP 120/68
[2018-09-11] MEDS ORDERED: ANALGESIC BALM CRM 120 GM TOP PRN (06:00)
[2018-09-11 06:29] LABS: BASO % 0.3 % (0.0-1.0); EOS # 0.1 10^3/uL (0.0-0.50); EOS % 1.7 % (0.0-3.0); HEMATOCRIT 33.4 % (42.0-52.0); LYMPH % 17.2 % (24.0-44.0); MEAN CORPUSCULAR HGB CONC 34.1 g/dl (32.0-36.5); MEAN CORPUSCULAR VOLUME 99.7 fl (80.0-96.0); MONO # 0.8 10^3/uL (0.0-0.8); MONO % 12.8 % (0.0-5.0); NEUTROPHILS % 66.8 % (36.0-66.0); PLATELET COUNT, AUTOMATED 211 10^3/uL (150-450); RED BLOOD COUNT 3.35 10^6/uL (4.30-6.10)
[2018-09-11 06:30] LABS: HEMOGLOBIN 11.4 g/dl (13.5-17.5)
[2018-09-11] MEDS: CIPROFLOXACIN 500 MG TAB PO SCH ×2 (06:34→17:29)
[2018-09-11] MEDS: LEVOTHYROXINE 88MCG TABLET (0.088 MG) PO SCH (06:34)
[2018-09-11] MEDS: KCL 40MEQ in NS 1000ML 1,000 ML IV SCH ×3 (06:35→22:41)
[2018-09-11 06:42] LABS: ALBUMIN 2.3 GM/DL (3.2-5.2); ALT/SGPT 32 U/L (12-78); BILIRUBIN,TOTAL 0.4 MG/DL (0.2-1.0); BLOOD UREA NITROGEN 10 MG/DL (7-18); CALCIUM LEVEL 9.6 MG/DL (8.8-10.2); CARBON DIOXIDE LEVEL 23 MEQ/L (21-32); CHLORIDE LEVEL 111 MEQ/L (98-107); CREATININE FOR GFR 1.27 MG/DL (0.70-1.30); GLOMERULAR FILTRATION RATE > 60.0 (>49); GLUCOSE, FASTING 111 MG/DL (70-100); MAGNESIUM LEVEL 1.8 MG/DL (1.8-2.4); POTASSIUM SERUM 3.1 MEQ/L (3.5-5.1); SODIUM LEVEL 140 MEQ/L (136-145); TOTAL PROTEIN 6.1 GM/DL (6.4-8.2)
[2018-09-11] MEDS: FLUTICASONE PROP 0.05% NASAL SPRAY 16 GM (FLONASE) SCH (08:04)
[2018-09-11] MEDS: CALCITRIOL 0.25 MCG CAP (S0169) PO SCH (08:05)
[2018-09-11] MEDS: FIDAXOMICIN 200 MG TAB (DIFICID) PO SCH ×2 (08:05→22:39)
[2018-09-11] MEDS: ONDANSETRON 4 MG TAB (S0181) PO PRN (08:05)
[2018-09-11] MEDS: FOLIC ACID 1 MG TAB PO SCH (08:06)
[2018-09-11] MEDS: LORATADINE 10 MG TAB PO SCH (08:06)
[2018-09-11] MEDS: ACETAMINOPHEN 500 MG TAB PO PRN (08:06)
[2018-09-11] MEDS: ADVAIR HFA 230/21MCG INHALER INH SCH ×2 (08:07→19:46)
[2018-09-11] MEDS: DICLOFENAC EPOLAMINE 1.3 % PATCH TOP SCH ×2 (08:07→22:41)
[2018-09-11] MEDS: TIOTROPIUM INHALER/CAPSULE (SPIRIVA) INH SCH (08:15)
[2018-09-11] MEDS ORDERED: POTASSIUM CHLORIDE 10 MEQ SR TABLET PO ONE ×2 (10:45→21:00)
--- NOTE | 2018-09-11 11:06 | IPNPDOC ---
Subjective Date Seen The patient was seen on 09/11/18. Subjective Chief Complaint/HPI Patient was lying comfortably in bed when I entered the room. He reports to be feeling well. His diarrhea is starting to lessen. He's have 3 episodes this morning. He denies any abdominal pain, nausea or vomiting Constitutional: Denies: Chills, Fever Pulmonary: Denies: Dyspnea, Cough Cardiovascular: Denies: Chest Pain, Palpitations, Orthopnea, Edema Gastrointestinal: Reports: Diarrhea; Denies: Nausea, Vomiting, Melena, Hematochezia Psych: Reports: Mood Normal Objective Physical Examination General Exam: Positive: Alert, Cooperative, No Acute Distress Neck Exam: Positive: Supple; Negative: JVD Chest Exam: Positive: Clear to auscultation, Normal air movement; Negative: Rales, Rhonchi, Wheezing Heart Exam: Positive: Rate Normal Abdomen Exam: Positive: Normal bowel sounds, Soft; Negative: Tenderness Male Exam: Negative: Edema Skin Exam: Positive: Nl turgor and temperature Psych Exam: Positive: Mental status NL Assessment /Plan Problems (1) C. difficile diarrhea Status: Acute Problem Text: He is on Dificid currently. His stools are starting to ease. (2) Salmonella bacteremia Status: Acute Response to Treatment: Stable Problem Text: He had one positive blood culture from 09/03/18. He is currently on Cipro 500 mg i po bid (3) Hypokalemia Status: Acute Problem Text: K+ 3.1 this morning, down from 3.2 yesterday despite receiving roughly 120 mEq in his IV fluids over the last 24 hours. Replaced with oral supplement 20 meq x 1. He remains on IVF with K+. We will continue to monitor. Diarrhea is improving. (4) Hypomagnesemia Status: Acute Response to Treatment: Stable Problem Text: Magnesium 1.8, up from 1.6 after 2 g of IV magnesium repletion. (5) Chronic kidney disease, stage 3 Status: Chronic Response to Treatment: Stable Problem Text: Renal function appears stable BUN/Cre 01/09., GFR >60 (6) COPD (chronic obstructive pulmonary disease) Status: Chronic Response to Treatment: Stable Problem Text: Remains on home inhalers Plan/VTE VTE Prophylaxis Ordered?: Yes (Lovenox ) Plan Family Medicine Attending Note: I saw and examined Mr. Gerard, discussed with Suzette Bryan DNP. Agree with her note as documented. When I saw him later in the day he had had 7 diarrheal stools. I think he is making some improvement, but we still have quite a ways to go with stopping his diarrhea. If he continues to have stools this frequent for the next 1-2 days, I will consult infectious disease because of the unusual situation requiring use of an oral antibiotic in the setting of C. difficile diarrhea. 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, Fishbone Vital Signs/I&O Vital Signs Date Time Temp Pulse Resp B/P (MAP) Pulse Ox O2 Delivery O2 Flow Rate FiO2 09/11/18 09:53 2.0 09/11/18 06:00 98.8 87 16 120/68 (85) 96 09/10/18 10:53 Room Air I&O- Last 24 Hours up to 6 AM 09/11/18 06:00 Intake Total 2400 ml Output Total 0 ml Balance 2400 ml Laboratory Data 24H LABS Laboratory Tests 2 09/10/18 11:22: Immature Granulocyte % (Auto) 0.7, White Blood Count 8.8, Red Blood Count 3.93L, Hemoglobin 13.6, Hematocrit 38.6L, Mean Corpuscular Volume 98.2H, Mean Corpuscular Hemoglobin 34.6H, Mean Corpuscular Hemoglobin Concent 35.2, Red Cell Distribution Width 14.2, Platelet Count 219, Neutrophils (%) (Auto) 72.8H, Lymphocytes (%) (Auto) 12.6L, Monocytes (%) (Auto) 12.4H, Eosinophils (%) (Auto) 1.0, Basophils (%) (Auto) 0.5, Neutrophils # (Auto) 6.4, Lymphocytes # (Auto) 1.1L, Monocytes # (Auto) 1.1H, Eosinophils # (Auto) 0.1, Basophils # (Auto) 0.0, Nucleated Red Blood Cells % (auto) 0.0, Anion Gap 9, Glomerular Filtration Rate 44.8L, Blood Urea Nitrogen 21H, Creatinine 1.65H, Sodium Level 139, Potassium Level 3.2L, Chloride Level 105, Carbon Dioxide Level 25, Calcium Level 10.8H, Aspartate Amino Transf (AST/SGOT) 40H, Alanine Aminotransferase (ALT/SGPT) 41, Alkaline Phosphatase 100, Total Bilirubin 0.4, Total Protein 7.0, Albumin 3.1L, Magnesium Level 1.6L, Albumin/Globulin Ratio 0.79L 09/11/18 06:08: Immature Granulocyte % (Auto) 1.2, White Blood Count 6.0, Red Blood Count 3.35L, Hemoglobin 11.4#L, Hematocrit 33.4L, Mean Corpuscular Volume 99.7H, Mean Corpuscular Hemoglobin 34.0H, Mean Corpuscular Hemoglobin Concent 34.1, Red Cell Distribution Width 14.3, Platelet Count 211, Neutrophils (%) (Auto) 66.8H, Lymphocytes (%) (Auto) 17.2L, Monocytes (%) (Auto) 12.8H, Eosinophils (%) (Auto) 1.7, Basophils (%) (Auto) 0.3, Neutrophils # (Auto) 4.0, Lymphocytes # (Auto) 1.0L, Monocytes # (Auto) 0.8, Eosinophils # (Auto) 0.1, Basophils # (Auto) 0.0, Nucleated Red Blood Cells % (auto) 0.0, Anion Gap 6L, Glomerular Filtration Rate > 60.0, Blood Urea Nitrogen 10#, Creatinine 1.27, Sodium Level 140, Potassium Level 3.1L, Chloride Level 111H, Carbon Dioxide Level 23, Calcium Level 9.6, Aspartate Amino Transf (AST/SGOT) 29, Alanine Aminotransferase (ALT/SGPT) 32, Alkaline Phosphatase 78, Total Bilirubin 0.4, Total Protein 6.1L, Albumin 2.3#L, Magnesium Level 1.8, Albumin/Globulin Ratio 0.61L CBC/BMP Laboratory Tests 09/10/18 11:22 Red Blood Count 3.93 L, Mean Corpuscular Volume 98.2 H, Mean Corpuscular Hemoglobin 34.6 H, Mean Corpuscular Hemoglobin Concent 35.2, Red Cell Distribution Width 14.2, Neutrophils (%) (Auto) 72.8 H, Lymphocytes (%) (Auto) 12.6 L, Monocytes (%) (Auto) 12.4 H, Eosinophils (%) (Auto) 1.0, Basophils (%) (Auto) 0.5, Neutrophils # (Auto) 6.4, Lymphocytes # (Auto) 1.1 L, Monocytes # (Auto) 1.1 H, Eosinophils # (Auto) 0.1, Basophils # (Auto) 0.0, Calcium Level 10.8 H, Aspartate Amino Transf (AST/SGOT) 40 H, Alanine Aminotransferase (ALT/SGPT) 41, Alkaline Phosphatase 100, Total Bilirubin 0.4, Total Protein 7.0, Albumin 3.1 L 09/11/18 06:08 Red Blood Count 3.35 L, Mean Corpuscular Volume 99.7 H, Mean Corpuscular Hemoglobin 34.0 H, Mean Corpuscular Hemoglobin Concent 34.1, Red Cell Distribution Width 14.3, Neutrophils (%) (Auto) 66.8 H, Lymphocytes (%) (Auto) 17.2 L, Monocytes (%) (Auto) 12.8 H, Eosinophils (%) (Auto) 1.7, Basophils (%) (Auto) 0.3, Neutrophils # (Auto) 4.0, Lymphocytes # (Auto) 1.0 L, Monocytes # (Auto) 0.8, Eosinophils # (Auto) 0.1, Basophils # (Auto) 0.0, Calcium Level 9.6, Aspartate Amino Transf (AST/SGOT) 29, Alanine Aminotransferase (ALT/SGPT) 32, Alkaline Phosphatase 78, Total Bilirubin 0.4, Total Protein 6.1 L, Albumin 2.3 #L SUZETTE BRYAN Sep 11, 2018 11:06 am Chilango Ponce MD Sep 11, 2018 8:50 pm
[2018-09-11 14:00] VITALS: BP 118/66
[2018-09-11 22:00] VITALS: BP 125/59
[2018-09-11] MEDS: MONTELUKAST 10 MG TAB PO SCH (22:40)
[2018-09-11] MEDS: ASPIRIN 81 MG ENTERIC TAB PO SCH (22:40)
[2018-09-11] MEDS: PARoxetine 20 MG TAB PO SCH (22:40)
[2018-09-11] MEDS: TAMSULOSIN 0.4 MG CAP PO SCH (22:40)
[2018-09-11] MEDS: ATORVASTATIN 20 MG TAB PO SCH (22:40)
[2018-09-11] MEDS: ENOXAPARIN 40 MG/0.4 ML SYRINGE (J1650) SC SCH (22:40)
[2018-09-12] MEDS: LEVOTHYROXINE 88MCG TABLET (0.088 MG) PO SCH (05:38)
[2018-09-12] MEDS: CIPROFLOXACIN 500 MG TAB PO SCH ×2 (05:38→17:38)
[2018-09-12] MEDS: KCL 40MEQ in NS 1000ML 1,000 ML IV SCH (05:38)
[2018-09-12 06:00] VITALS: BP 131/65
[2018-09-12 06:27] LABS: BASO % 0.4 % (0.0-1.0); EOS # 0.2 10^3/uL (0.0-0.50); EOS % 2.3 % (0.0-3.0); HEMATOCRIT 32.2 % (42.0-52.0); HEMOGLOBIN 10.8 g/dl (13.5-17.5); LYMPH # 1.6 10^3/uL (1.5-4.5); LYMPH % 20.3 % (24.0-44.0); MEAN CORPUSCULAR HEMOGLOBIN 33.1 pg (27.0-33.0); MEAN CORPUSCULAR HGB CONC 33.5 g/dl (32.0-36.5); MEAN CORPUSCULAR VOLUME 98.8 fl (80.0-96.0); MONO # 1.1 10^3/uL (0.0-0.8); MONO % 14.3 % (0.0-5.0); NEUTROPHILS # 4.8 10^3/uL (1.8-7.7); PLATELET COUNT, AUTOMATED 200 10^3/uL (150-450); RED BLOOD COUNT 3.26 10^6/uL (4.30-6.10); WHITE BLOOD COUNT 7.8 10^3/uL (4.0-10.0)
[2018-09-12 07:02] LABS: BLOOD UREA NITROGEN 7 MG/DL (7-18); CALCIUM LEVEL 8.7 MG/DL (8.8-10.2); CARBON DIOXIDE LEVEL 23 MEQ/L (21-32); CHLORIDE LEVEL 115 MEQ/L (98-107); GLOMERULAR FILTRATION RATE > 60.0 (>49); GLUCOSE, FASTING 102 MG/DL (70-100); MAGNESIUM LEVEL 1.3 MG/DL (1.8-2.4); POTASSIUM SERUM 3.9 MEQ/L (3.5-5.1); SODIUM LEVEL 143 MEQ/L (136-145)
[2018-09-12] MEDS: TIOTROPIUM INHALER/CAPSULE (SPIRIVA) INH SCH (07:38)
[2018-09-12] MEDS: ADVAIR HFA 230/21MCG INHALER INH SCH ×2 (07:38→21:07)
[2018-09-12] MEDS ORDERED: MAGNESIUM OXIDE 400 MG TAB (MAG-OX) PO ONE (07:45)
--- NOTE | 2018-09-12 07:52 | IPNPDOC ---
Subjective Date Seen The patient was seen on 09/12/18. Subjective Chief Complaint/HPI Patient reports to be feeling well. His stools have continued to lessen. He denies any abdominal pain. He is tolerating oral intake Constitutional: Denies: Chills, Fever Pulmonary: Denies: Dyspnea, Cough Cardiovascular: Denies: Chest Pain, Palpitations, Orthopnea, Edema Gastrointestinal: Reports: Diarrhea (improving ); Denies: Nausea, Vomiting Psych: Reports: Mood Normal Objective Physical Examination General Exam: Positive: Alert, Cooperative, No Acute Distress Neck Exam: Positive: Supple; Negative: JVD Chest Exam: Positive: Clear to auscultation, Normal air movement; Negative: Rales, Rhonchi, Wheezing Heart Exam: Positive: Rate Normal Abdomen Exam: Positive: Normal bowel sounds, Soft; Negative: Tenderness Male Exam: Negative: Edema Skin Exam: Positive: Nl turgor and temperature Psych Exam: Positive: Mental status NL Assessment /Plan Problems (1) C. difficile diarrhea Status: Acute Problem Text: 09/12/18: He remains on Dificid. Stools continue to ease. 3 loose stools total yesterday. No loose stools today He is on Dificid currently. His stools are starting to ease. (2) Salmonella bacteremia Status: Acute Response to Treatment: Stable Problem Text: 09/12/18: Day 5 of Cipro He had one positive blood culture from 09/03/18. He is currently on Cipro 500 mg i po bid (3) Hypokalemia Status: Acute Problem Text: 09/12/18: K+ 3.9 this morning. Loose stool are easing. Patient tolerating oral intake, full liquids yesterday, regular diet this morning. We will d/c IV fluids K+ 3.1 this morning, down from 3.2 yesterday despite receiving roughly 120 mEq in his IV fluids over the last 24 hours. Replaced with oral supplement 20 meq x 1. He remains on IVF with K+. We will continue to monitor. Diarrhea is improving. (4) Hypomagnesemia Status: Acute Response to Treatment: Stable Problem Text: 09/12/18: Mag down to 1.3 today. Gave oral mag 400mg x 1. 3 loose stools yesterday, no loose stools this morning Magnesium 1.8, up from 1.6 after 2 g of IV magnesium repletion. (5) Chronic kidney disease, stage 3 Status: Chronic Response to Treatment: Stable Problem Text: 09/12/18: BUN/Cre 7/1.20, GFR >60 Renal function appears stable BUN/Cre 10/1.27, GFR >60 (6) COPD (chronic obstructive pulmonary disease) Status: Chronic Response to Treatment: Stable Problem Text: Remains on home inhalers Plan/VTE VTE Prophylaxis Ordered?: Yes (Lovenox ) Plan Family Medicine Attending Note: I saw and examined Mr. Gerard, discussed with Suzette Bryan DNP. Agree with her note as documented. He reports he's had no diarrheal stools by the time I saw him in the afternoon; this is very good. If this persists he may be able to be discharged tomorrow. I did speak casually to an Infectious Disease physician. Her impression is that the Salmonella is likely the true cause of his diarrhea and that he may be only colonized with Clostridium difficile. Regardless she agrees with her course of therapy. She suggests a 7 day course treatment for the Salmonella enteritis/diarrhea a 14 day treatment for the C. difficile since it has been started. 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, I&O, 24H, Fishbone Vital Signs/I&O Vital Signs Date Time Temp Pulse Resp B/P (MAP) Pulse Ox O2 Delivery O2 Flow Rate FiO2 09/11/18 22:00 98.5 94 20 125/59 (81) 96 09/11/18 21:00 2.0 09/10/18 10:53 Room Air I&O- Last 24 Hours up to 6 AM 09/12/18 06:00 Intake Total 2940 ml Balance 2940 ml Laboratory Data 24H LABS Laboratory Tests 2 09/12/18 06:15: Immature Granulocyte % (Auto) 1.7, White Blood Count 7.8, Red Blood Count 3.26L, Hemoglobin 10.8L, Hematocrit 32.2L, Mean Corpuscular Volume 98.8H, Mean Corpuscular Hemoglobin 33.1H, Mean Corpuscular Hemoglobin Concent 33.5, Red Cell Distribution Width 14.8H, Platelet Count 200, Neutrophils (%) (Auto) 61.0, Lymphocytes (%) (Auto) 20.3L, Monocytes (%) (Auto) 14.3H, Eosinophils (%) (Auto) 2.3, Basophils (%) (Auto) 0.4, Neutrophils # (Auto) 4.8, Lymphocytes # (Auto) 1.6, Monocytes # (Auto) 1.1H, Eosinophils # (Auto) 0.2, Basophils # (Auto) 0.0, Nucleated Red Blood Cells % (auto) 0.0, Blood Urea Nitrogen 7, Creatinine 1.20, Sodium Level 143, Potassium Level 3.9#, Chloride Level 115H, Carbon Dioxide Level 23, Anion Gap 5L, Glomerular Filtration Rate > 60.0, Calcium Level 8.7L, Phosphorus Level 1.0L, Magnesium Level 1.3L, Albumin 2.0L CBC/BMP Laboratory Tests 09/12/18 06:15 Red Blood Count 3.26 L, Mean Corpuscular Volume 98.8 H, Mean Corpuscular Hemoglobin 33.1 H, Mean Corpuscular Hemoglobin Concent 33.5, Red Cell Distribution Width 14.8 H, Neutrophils (%) (Auto) 61.0, Lymphocytes (%) (Auto) 20.3 L, Monocytes (%) (Auto) 14.3 H, Eosinophils (%) (Auto) 2.3, Basophils (%) (Auto) 0.4, Neutrophils # (Auto) 4.8, Lymphocytes # (Auto) 1.6, Monocytes # (Auto) 1.1 H, Eosinophils # (Auto) 0.2, Basophils # (Auto) 0.0, Anion Gap 5 L SUZETTE BRYAN Sep 12, 2018 07:52 Chilango Ponce MD Sep 13, 2018 06:48
[2018-09-12] MEDS: LORATADINE 10 MG TAB PO SCH (08:12)
[2018-09-12] MEDS: FOLIC ACID 1 MG TAB PO SCH (08:12)
[2018-09-12] MEDS: FIDAXOMICIN 200 MG TAB (DIFICID) PO SCH ×2 (08:12→20:34)
[2018-09-12] MEDS: CALCITRIOL 0.25 MCG CAP (S0169) PO SCH (08:13)
[2018-09-12] MEDS: DICLOFENAC EPOLAMINE 1.3 % PATCH TOP SCH ×2 (08:13→20:35)
[2018-09-12] MEDS: FLUTICASONE PROP 0.05% NASAL SPRAY 16 GM (FLONASE) SCH (08:13)
[2018-09-12 14:11] VITALS: BP 96/58
[2018-09-12 17:06] VITALS: BP 126/61
[2018-09-12] MEDS: MAG SULF 1GM/100ML (MAG RUN) 1 GM in APPROPRIATE DILUENT 1 EA IV SCH ×4 (17:38→23:54)
[2018-09-12] MEDS: ATORVASTATIN 20 MG TAB PO SCH (20:34)
[2018-09-12] MEDS: ENOXAPARIN 40 MG/0.4 ML SYRINGE (J1650) SC SCH (20:34)
[2018-09-12] MEDS: PARoxetine 20 MG TAB PO SCH (20:34)
[2018-09-12] MEDS: TAMSULOSIN 0.4 MG CAP PO SCH (20:34)
[2018-09-12] MEDS: MONTELUKAST 10 MG TAB PO SCH (20:34)
[2018-09-12] MEDS: ASPIRIN 81 MG ENTERIC TAB PO SCH (20:34)
[2018-09-12 22:00] VITALS: BP 122/87
[2018-09-12] MEDS ORDERED: MAGNESIUM SULFATE 1 GM/100 ML D5W BAG (10MG/ML) (J3475) As Ordered ONE (23:43)
[2018-09-13 06:00] VITALS: BP 115/62
[2018-09-13 06:20] LABS: HEMATOCRIT 31.9 % (42.0-52.0); HEMOGLOBIN 10.6 g/dl (13.5-17.5); MEAN CORPUSCULAR HEMOGLOBIN 32.6 pg (27.0-33.0); MEAN CORPUSCULAR HGB CONC 33.2 g/dl (32.0-36.5); MEAN CORPUSCULAR VOLUME 98.2 fl (80.0-96.0); PLATELET COUNT, AUTOMATED 216 10^3/uL (150-450); RED BLOOD COUNT 3.25 10^6/uL (4.30-6.10); WHITE BLOOD COUNT 8.5 10^3/uL (4.0-10.0)
[2018-09-13] MEDS: LEVOTHYROXINE 88MCG TABLET (0.088 MG) PO SCH (06:41)
[2018-09-13] MEDS: CIPROFLOXACIN 500 MG TAB PO SCH (06:41)
[2018-09-13 06:48] LABS: BLOOD UREA NITROGEN 7 MG/DL (7-18); CALCIUM LEVEL 8.4 MG/DL (8.8-10.2); CARBON DIOXIDE LEVEL 25 MEQ/L (21-32); CHLORIDE LEVEL 110 MEQ/L (98-107); CREATININE FOR GFR 1.16 MG/DL (0.70-1.30); GLOMERULAR FILTRATION RATE > 60.0 (>49); GLUCOSE, FASTING 117 MG/DL (70-100); MAGNESIUM LEVEL 1.7 MG/DL (1.8-2.4); PHOSPHORUS LEVEL 1.5 MG/DL (2.5-4.9); POTASSIUM SERUM 3.8 MEQ/L (3.5-5.1); SODIUM LEVEL 141 MEQ/L (136-145)
[2018-09-13] MEDS: DICLOFENAC EPOLAMINE 1.3 % PATCH TOP SCH (09:00)
[2018-09-13] MEDS: TIOTROPIUM INHALER/CAPSULE (SPIRIVA) INH SCH (09:31)
[2018-09-13] MEDS: ADVAIR HFA 230/21MCG INHALER INH SCH (09:31)
[2018-09-13] MEDS: FLUTICASONE PROP 0.05% NASAL SPRAY 16 GM (FLONASE) SCH (09:39)
[2018-09-13] MEDS: FIDAXOMICIN 200 MG TAB (DIFICID) PO SCH (09:39)
[2018-09-13] MEDS: LORATADINE 10 MG TAB PO SCH (09:39)
[2018-09-13] MEDS: CALCITRIOL 0.25 MCG CAP (S0169) PO SCH (09:39)
[2018-09-13] MEDS: FOLIC ACID 1 MG TAB PO SCH (09:39)
[2018-09-13] MEDS ORDERED: CIPR-249 PO (10:22)
[2018-09-13] MEDS ORDERED: DIFI200T PO (10:22)
== END 2018-09-13 11:55 | disposition home or self-care (01) | DRG 248 ==
LOC: EDBD 10:45 → M ED 10:45 → M ED INP 12:42 → M MS5PR 14:20
PROVIDERS: ADMIT Family Medicine; ATTEND Family Medicine
DX: A04.71 Enterocolitis due to Clostridium difficile, recurrent (principal); R78.81 Bacteremia; A02.9 Salmonella infection, unspecified; E83.42 Hypomagnesemia; N18.3 Chronic kidney disease, stage 3 (moderate); J44.9 Chronic obstructive pulmonary disease, unspecified; E87.6 Hypokalemia; Z79.899 Other long term (current) drug therapy; I25.10 Atherosclerotic heart disease of native coronary artery without angina pectoris; Z95.2 Presence of prosthetic heart valve; E66.9 Obesity, unspecified; G47.33 Obstructive sleep apnea (adult) (pediatric); E78.5 Hyperlipidemia, unspecified; I12.9 Hypertensive chronic kidney disease with stage 1 through stage 4 chronic kidney disease, or unspecified chronic kidney disease; D63.1 Anemia in chronic kidney disease; K59.00 Constipation, unspecified; K44.9 Diaphragmatic hernia without obstruction or gangrene; E03.9 Hypothyroidism, unspecified; N40.0 Benign prostatic hyperplasia without lower urinary tract symptoms

== ENCOUNTER 2018-11-24 22:07 | Emergency (ER) | payer MEDICARE, MEDICAID ==
[~2018-11-24] VITALS: Ht 162.6 cm; Wt 94.5 kg
[~2018-11-24 22:07] MED LIST changes: +ATOR40TA75 PO; +CIPR500T3 PO; +COLA100C5 PO; +DIFI200T PO; +ECOT81TA5 PO; +FOLI1TAB11 PO; +IPRA0.00 INH; +LORA-674 PO; +NITR4TASL SL; +OMEP40CA2 PO; +PARO20TA3 PO; +VENTAER INH; +ZOFR4TAB16 PO; +ZYLO300T6 PO
[2018-11-25] MEDS ORDERED: VANCOMYCIN HCL 1,000 MG in IV FLUID PLACE HOLDER 1 EA IV ONE (00:15)
[2018-11-25] MEDS ORDERED: NS 1,000 ML IV ONE ×2 (00:15)
[2018-11-25] MEDS ORDERED: VANCOMYCIN HCL 1,000 MG, VIAL MATE ADAPTER 1 EACH in D5W 250 ML IV ONE (00:15)
[2018-11-25 00:35] LABS: BASO # 0.1 10^3/uL (0.0-0.2); BASO % 0.6 % (0.0-1.0); EOS # 0.4 10^3/uL (0.0-0.50); HEMATOCRIT 36.9 % (42.0-52.0); LYMPH % 24.7 % (24.0-44.0); MEAN CORPUSCULAR HEMOGLOBIN 33.4 pg (27.0-33.0); MEAN CORPUSCULAR HGB CONC 32.5 g/dl (32.0-36.5); MEAN CORPUSCULAR VOLUME 102.8 fl (80.0-96.0); MONO % 12.4 % (0.0-5.0); NEUTROPHILS # 4.6 10^3/uL (1.8-7.7); NEUTROPHILS % 57.1 % (36.0-66.0); PLATELET COUNT, AUTOMATED 199 10^3/uL (150-450); RED BLOOD COUNT 3.59 10^6/uL (4.30-6.10)
[2018-11-25 00:49] LABS: ERYTHROCYTE SEDIMENTATION RATE 56 mm/hr (0-20)
[2018-11-25 01:26] LABS: ALBUMIN 3.1 GM/DL (3.2-5.2); ALT/SGPT 26 U/L (12-78); BILIRUBIN,DIRECT < 0.1 MG/DL (0.0-0.2); BILIRUBIN,TOTAL 0.3 MG/DL (0.2-1.0); TOTAL PROTEIN 6.8 GM/DL (6.4-8.2)
[2018-11-25] MEDS ORDERED: BACTRIM 160MG/800MG DS TAB PO ONE (02:30)
[2018-11-25 02:32] VITALS: BP 120/58
[2018-11-25] MEDS ORDERED: BACT800T5 PO (02:51)
== END 2018-11-25 03:07 | disposition home or self-care (01) ==
LOC: M ED 22:07
DX: L03.115 Cellulitis of right lower limb (principal); I10 Essential (primary) hypertension; J44.9 Chronic obstructive pulmonary disease, unspecified; J45.909 Unspecified asthma, uncomplicated; E78.5 Hyperlipidemia, unspecified; E03.9 Hypothyroidism, unspecified; I25.2 Old myocardial infarction; N40.0 Benign prostatic hyperplasia without lower urinary tract symptoms; Z79.899 Other long term (current) drug therapy; Z79.890 Hormone replacement therapy; Z88.8 Allergy status to other drugs, medicaments and biological substances; Z91.018 Allergy to other foods
CPT/HCPCS: 36415; 80047; 80076; 81001; 83605; 85025; 85652; 86140; 87040; 96374; 99284; J3370

== ENCOUNTER 2018-11-27 16:22 | Emergency (ER) | payer MEDICARE, MEDICAID ==
[~2018-11-27] VITALS: Ht 162.6 cm; Wt 96.0 kg
[~2018-11-27 16:22] MED LIST changes: +BACT800T5 PO
[2018-11-27] MEDS ORDERED: FLAG500T PO (20:25)
[2018-11-27 20:28] VITALS: BP 130/72
[2018-11-27] MEDS ORDERED: metroNIDAZOLE (FLAGYL) 500 MG TAB PO ONE (20:30)
== END 2018-11-27 21:05 | disposition home or self-care (01) ==
LOC: M ED 16:22
DX: S60.571A Other superficial bite of hand of right hand, initial encounter (principal); W55.01XA Bitten by cat, initial encounter; Y92.008 Other place in unspecified non-institutional (private) residence as the place of occurrence of the external cause; I10 Essential (primary) hypertension; J44.9 Chronic obstructive pulmonary disease, unspecified; J45.909 Unspecified asthma, uncomplicated; E78.00 Pure hypercholesterolemia, unspecified; G47.30 Sleep apnea, unspecified; K21.9 Gastro-esophageal reflux disease without esophagitis; F33.9 Major depressive disorder, recurrent, unspecified; F41.9 Anxiety disorder, unspecified; Z99.89 Dependence on other enabling machines and devices; Z79.899 Other long term (current) drug therapy; Z79.890 Hormone replacement therapy; Z79.82 Long term (current) use of aspirin; Z87.891 Personal history of nicotine dependence

== ENCOUNTER → 2019-01-23 | Outpatient (REF) | payer MEDICARE, MEDICAID ==
[2019-01-23 13:04] LABS: ALBUMIN 3.6 GM/DL (3.2-5.2); BILIRUBIN,TOTAL 0.4 MG/DL (0.2-1.0); CREATININE FOR GFR 1.4 MG/DL (0.70-1.30); FREE T4 0.93 NG/DL (0.76-1.46); GLOMERULAR FILTRATION RATE 54.1 (>49); THYROID STIMULATING HORMONE 4.4 uIU/ML (0.358-3.740); TOTAL PROTEIN 7.4 GM/DL (6.4-8.2); URIC ACID 5.3 MG/DL (3.5-7.2)
[2019-01-23 13:05] LABS: PTH INTACT 193.8 PG/ML (18.5-88.0)
[2019-01-25 00:08] LABS: FREE KAPPA LIGHT CHAINS SERUM 33.6 mg/L (3.3-19.4); FREE LAMBDA LIGHT CHAINS SERUM 29.3 mg/L (5.7-26.3); KAPPA/LAMBDA RATIO SERUM 1.15 (0.26-1.65)
== END ==
LOC: M SFHCPLAZ 09:35
PROVIDERS: ATTEND Family Medicine
DX: Z12.5 Encounter for screening for malignant neoplasm of prostate (principal); N18.3 Chronic kidney disease, stage 3 (moderate); E53.8 Deficiency of other specified B group vitamins; R73.01 Impaired fasting glucose; M10.9 Gout, unspecified; E03.9 Hypothyroidism, unspecified
CPT/HCPCS: 36415; 80053; 83036; 83525; 83883; 83970; 84439; 84443; 84550; G0103

== ENCOUNTER → 2019-01-30 | Outpatient (REF) | payer MEDICARE, MEDICAID ==
[~2019-01-30] MED LIST changes: -OMEP40CA2 PO; +OMEP40CA97 PO
== END ==
LOC: M SFHCPLAZ 15:20
PROVIDERS: ATTEND Family Medicine
DX: L02.91 Cutaneous abscess, unspecified (principal)
CPT/HCPCS: 87070; 87077; 87186; 87205; 90682; 96372; G0008; G0463; J3420

== ENCOUNTER → 2019-05-03 | Outpatient (CLI) | payer MEDICARE, MEDICAID, OTHER ==
--- NOTE | 2019-05-04 01:40 | REPPI ---
Clinical: COPD. Technique: PA and lateral. Comparison: 09/03/2018. Findings: Mediastinum and cardiac silhouette stable. Lung lopez demonstrate chronic interstitial changes and findings consistent with emphysematous disease. No focal consolidation, effusion, or pneumothorax. Skeletal structures demonstrate age-related degenerative changes. Impression: Chronic stable changes. No acute cardiopulmonary process appreciated. Electronically Signed by Cr Dhillon MD 05/04/2019 01:31 A
== END ==
LOC: M PLALAB 13:37 → M PLAIMG 13:37
PROVIDERS: ATTEND Family Medicine
DX: J44.9 Chronic obstructive pulmonary disease, unspecified (principal)
CPT/HCPCS: 71046; G0463

== ENCOUNTER → 2019-06-11 | Outpatient (REF) | payer OTHER | LOC: M SFHCPLAZ 11:34 | PROVIDERS: ATTEND Nurse Practitioner Family | DX: L02.91 Cutaneous abscess, unspecified (principal) | CPT/HCPCS: 87070; 87077; 87186; G0463 ==

== ENCOUNTER → 2019-07-26 | Outpatient (CLI) | payer MEDICARE, MEDICAID ==
--- NOTE | 2019-07-27 20:22 | SLEEPCENT ---
DATE OF PROCEDURE: 07/26/2019 ORDERED BY: Dr. Daugherty Nocturnal polysomnography was performed for the titration of pressure therapy in this patient with obstructive sleep apnea syndrome. For testing a [employer] Simplus full face mask of medium size was used, 11 cm of water pressure were applied to the circuit and the lights were extinguished. 7 hours and 52 minutes of data were reviewed. There were 326.5 minutes of sleep identified. Sleep latency was short at 4.5 minutes. Rapid eye movement (REM) sleep was not seen. Sleep architecture showed poor progression and periods of wake. Overall sleep efficiency was 70.4%. The electrocardiogram showed a sinus rhythm with an average heart rate of 75 beats per minute. EEG showed coarsening in background, alpha intrusion into non-REM stages, otherwise normal waveforms for awake and sleep. Respiratory events were reasonably palliated with continuous positive airway pressure (CPAP) at a pressure of 16. There was some limb activity noted. Two trains of 30 events could be identified. The limb movement arousal index was 6.8. IMPRESSION: Obstructive sleep apnea syndrome (G47.33). RECOMMENDATIONS: Nightly use of pressure therapy 16 cm of water.
== END ==
LOC: M SLEEP 20:00
PROVIDERS: ATTEND Nurse Practitioner Family
DX: G47.33 Obstructive sleep apnea (adult) (pediatric) (principal)

== ENCOUNTER 2019-09-25 19:18 | Emergency (ER) | payer MEDICARE, MEDICAID, OTHER ==
[~2019-09-25] VITALS: Ht 162.6 cm; Wt 86.4 kg
[~2019-09-25 19:18] MED LIST changes: +PHEN26CR TOP; -PREPCRE TOP
[2019-09-25] MEDS ORDERED: LIDOCAINE W/EPINEPHRINE 1% 20ML VIAL As Ordered ONE (19:37)
[2019-09-25] MEDS ORDERED: LIDOCAINE W/EPINEPHRINE 1% 20ML VIAL SC ONE (19:45)
[2019-09-25] MEDS ORDERED: AUGM875T28 PO (20:12)
[2019-09-25] MEDS ORDERED: AUGMENTIN 875 MG TAB PO ONE (20:15)
[2019-09-25 20:33] VITALS: BP 120/60
== END 2019-09-25 20:54 | disposition home or self-care (01) ==
LOC: M ED 19:18
DX: S61.452A Open bite of left hand, initial encounter (principal); W55.01XA Bitten by cat, initial encounter; I10 Essential (primary) hypertension; E78.5 Hyperlipidemia, unspecified; Z79.51 Long term (current) use of inhaled steroids; Z79.899 Other long term (current) drug therapy; Z86.79 Personal history of other diseases of the circulatory system; Z87.891 Personal history of nicotine dependence; Z88.6 Allergy status to analgesic agent; Z91.013 Allergy to seafood; Y92.9 Unspecified place or not applicable; Y93.9 Activity, unspecified; Y99.9 Unspecified external cause status

== ENCOUNTER → 2019-11-20 | Outpatient (REF) | payer MEDICARE, MEDICAID ==
[~2019-11-20] MED LIST changes: +AUGM875T28 PO
[2019-12-23 15:44] LABS: PARTIAL THROMBOPLASTIN TIME 33.9 SECONDS (25.0-38.4); PROTHROMBIN TIME 13.4 SECONDS (11.8-14.0)
[2019-12-23 15:47] LABS: HEMATOCRIT 41.8 % (42.0-52.0); HEMOGLOBIN 13.5 g/dl (13.5-17.5); MEAN CORPUSCULAR HEMOGLOBIN 33.8 pg (27.0-33.0); MEAN CORPUSCULAR HGB CONC 32.3 g/dl (32.0-36.5); MEAN CORPUSCULAR VOLUME 104.5 fl (80.0-96.0); PLATELET COUNT, AUTOMATED 215 10^3/uL (150-450); WHITE BLOOD COUNT 7.7 10^3/uL (4.0-10.0)
[2020-01-04 17:10] LABS: ALBUMIN 3.8 GM/DL (3.2-5.2); BILIRUBIN,TOTAL 0.4 MG/DL (0.2-1.0); CALCIUM LEVEL 10.5 MG/DL (8.8-10.2); CREATININE FOR GFR 1.48 MG/DL (0.70-1.30); GLOMERULAR FILTRATION RATE 50.6 (>49); MAGNESIUM LEVEL 2.1 MG/DL (1.8-2.4); POTASSIUM SERUM 4.4 MEQ/L (3.5-5.1); TOTAL PROTEIN 8.1 GM/DL (6.4-8.2)
== END ==
LOC: M SFHCPLAZ 09:04
PROVIDERS: ATTEND Family Medicine
DX: I10 Essential (primary) hypertension (principal); E03.9 Hypothyroidism, unspecified; E78.00 Pure hypercholesterolemia, unspecified; J44.9 Chronic obstructive pulmonary disease, unspecified; Z79.82 Long term (current) use of aspirin; R73.03 Prediabetes
CPT/HCPCS: 36415; 80053; 83735; 83880; 85027; 85610; 85730; G0463

== ENCOUNTER 2019-12-03 08:39 | Day surgery (SDC) | payer MEDICARE, MEDICAID ==
[~2019-12-03] VITALS: Ht 160 cm; Wt 117.5 kg
[2019-12-03] MEDS ORDERED: NS 1,000 ML IV ONE (09:15)
[2019-12-03] MEDS ORDERED: propofoL 500 MG/50 ML VIAL As Ordered ONE (09:53)
[2019-12-03 10:48] VITALS: BP 120/55
--- NOTE | 2019-12-19 11:35 | ROOR ---
Patient Name: Greg Gerard Procedure Date: 12/03/2019 8:35 AM Date of : 1955 Age: 64 Room: [facility] Gender: Male Note Status: Finalized Procedure: Colonoscopy Indications: High risk colon cancer surveillance: Personal history of colonic polyps Providers: Quinn ROBBINS MD Referring MD: Reggie Isaac MD Requesting Provider: Medicines: Monitored Anesthesia Care Complications: No immediate complications. Procedure: Pre-Anesthesia Assessment: - The heart rate, respiratory rate, oxygen saturations, blood pressure, adequacy of pulmonary ventilation, and response to care were monitored throughout the procedure. The Colonoscope was introduced through the anus and advanced to the cecum, identified by appendiceal orifice and ileocecal valve. The colonoscopy was performed without difficulty. The patient tolerated the procedure well. The quality of the bowel preparation was good. Findings: The perianal and digital rectal examinations were normal. A diminutive polyp was found in the sigmoid colon. The polyp was sessile. The polyp was removed with a cold snare. Resection and retrieval were complete. Multiple medium-mouthed diverticula were found in the sigmoid colon. Small Internal Hemorrhoids. The exam was otherwise without abnormality on direct and retroflexion views. Impression: - One diminutive polyp in the sigmoid colon, removed with a cold snare. Resected and retrieved. - Diverticulosis in the sigmoid colon. - Small Internal Hemorrhoids. - The examination was otherwise normal on direct and retroflexion views. Recommendation: - Repeat colonoscopy in 5 years for surveillance. Quinn Robbins MD Quinn ROBBINS MD 12/03/2019 10:32:19 AM Number of Addenda: 0 Note Initiated On: 12/03/2019 8:35 AM Estimated Blood Loss: Estimated blood loss: none.
== END 2019-12-03 11:14 | disposition home or self-care (01) ==
LOC: M OPP 08:39
PROVIDERS: ATTEND Internal Medicine Gastroenterology
DX: Z12.11 Encounter for screening for malignant neoplasm of colon (principal); Z86.010 Personal history of colon polyps; K63.5 Polyp of colon; K57.30 Diverticulosis of large intestine without perforation or abscess without bleeding; K64.8 Other hemorrhoids; Z86.19 Personal history of other infectious and parasitic diseases; Z91.013 Allergy to seafood; Z88.8 Allergy status to other drugs, medicaments and biological substances; Z79.899 Other long term (current) drug therapy

== ENCOUNTER 2019-12-09 14:27 | Emergency (ER) | payer MEDICARE, MEDICAID ==
[~2019-12-09] VITALS: Ht 160 cm; Wt 90.9 kg
[2019-12-09 16:25] VITALS: BP 142/74
== END 2019-12-09 16:27 | disposition home or self-care (01) ==
LOC: EDBD 14:27 → M ED 14:27
DX: S01.20XA Unspecified open wound of nose, initial encounter (principal); Y92.9 Unspecified place or not applicable; Y93.9 Activity, unspecified; Y99.9 Unspecified external cause status; I86.8 Varicose veins of other specified sites; E11.9 Type 2 diabetes mellitus without complications; I10 Essential (primary) hypertension; J44.9 Chronic obstructive pulmonary disease, unspecified; Z79.51 Long term (current) use of inhaled steroids; Z79.82 Long term (current) use of aspirin; Z79.899 Other long term (current) drug therapy; Z87.891 Personal history of nicotine dependence; Z88.6 Allergy status to analgesic agent; Z88.8 Allergy status to other drugs, medicaments and biological substances; Z91.013 Allergy to seafood

== ENCOUNTER → 2020-01-01 | Outpatient (CLI) | payer MEDICARE, MEDICAID ==
[2020-01-01 14:35] LABS: CREATININE FOR GFR 1.3 MG/DL (0.70-1.30); GLOMERULAR FILTRATION RATE 58.8 (>49); POTASSIUM SERUM 3.6 MEQ/L (3.5-5.1)
[2020-01-01 14:36] LABS: ALBUMIN 3.6 GM/DL (3.2-5.2); BILIRUBIN,TOTAL 0.4 MG/DL (0.2-1.0); CALCIUM LEVEL 10.1 MG/DL (8.8-10.2); CHOLESTEROL RISK RATIO 3.534 (<5); FREE T4 1.08 NG/DL (0.76-1.46); THYROID STIMULATING HORMONE 2.41 uIU/ML (0.358-3.740); TOTAL PROTEIN 7.4 GM/DL (6.4-8.2)
[2020-01-01 14:37] LABS: PTH INTACT 165.3 PG/ML (18.5-88.0)
[2020-01-01 14:58] LABS: TOTAL 25(OH) VITAMIN D 15.8 NG/ML (30.0-100.0)
[2020-01-01 18:10] LABS: HEMOGLOBIN A1c 6.1 %
== END ==
LOC: M PLALAB 12:24
PROVIDERS: ATTEND Family Medicine
DX: E03.9 Hypothyroidism, unspecified (principal); I12.9 Hypertensive chronic kidney disease with stage 1 through stage 4 chronic kidney disease, or unspecified chronic kidney disease; R73.01 Impaired fasting glucose; N18.3 Chronic kidney disease, stage 3 (moderate); E21.3 Hyperparathyroidism, unspecified; Z12.5 Encounter for screening for malignant neoplasm of prostate
CPT/HCPCS: 36415; 80053; 80061; 82306; 83036; 83970; 84439; 84443; G0103

== ENCOUNTER → 2020-05-16 | Outpatient (REF) | payer MEDICARE, MEDICAID ==
[2020-05-16 11:36] LABS: BASO % 0.6 % (0.0-1.0); EOS # 0.7 10^3/uL (0.0-0.5); EOS % 11.2 % (0.0-3.0); HEMOGLOBIN 12.6 g/dl (13.5-17.5); LYMPH # 1.4 10^3/uL (1.5-5.0); MEAN CORPUSCULAR HEMOGLOBIN 34.2 pg (27.0-33.0); MEAN CORPUSCULAR HGB CONC 32.3 g/dl (32.0-36.5); MONO # 0.7 10^3/uL (0.0-0.8); MONO % 10.3 % (0.0-5.0); NEUTROPHILS # 3.6 10^3/uL (1.5-8.5); NEUTROPHILS % 55.6 % (36.0-66.0); PLATELET COUNT, AUTOMATED 183 10^3/uL (150-450); RED BLOOD COUNT 3.68 10^6/uL (4.30-6.10); WHITE BLOOD COUNT 6.4 10^3/uL (4.0-10.0)
[2020-05-16 11:39] LABS: HEMATOCRIT 39.7 % (42.0-52.0)
[2020-05-16 11:58] LABS: HEMOGLOBIN A1c 5.8 %
[2020-05-16 12:19] LABS: ALBUMIN 3.4 GM/DL (3.2-5.2); ALT/SGPT 31 U/L (12-78); BILIRUBIN,TOTAL 0.5 MG/DL (0.2-1.0); BLOOD UREA NITROGEN 19 MG/DL (7-18); CALCIUM LEVEL 10.2 MG/DL (8.8-10.2); CARBON DIOXIDE LEVEL 30 MEQ/L (21-32); CHLORIDE LEVEL 108 MEQ/L (98-107); CREATININE FOR GFR 1.25 MG/DL (0.70-1.30); FERRITIN 570 NG/ML (26-388); GLOMERULAR FILTRATION RATE > 60.0 (>49); GLUCOSE, FASTING 116 MG/DL (70-100); POTASSIUM SERUM 3.8 MEQ/L (3.5-5.1); PTH INTACT 167.9 PG/ML (18.5-88.0); SODIUM LEVEL 143 MEQ/L (136-145)
[2020-05-19 14:08] LABS: INSULIN LEVEL 96.6 uIU/mL (2.6-24.9); VITAMIN D 1,25 DIHYDROXY 46.4 pg/mL (19.9-79.3)
== END ==
LOC: M SFHCPLAZ 10:28
PROVIDERS: ATTEND Family Medicine
DX: R73.01 Impaired fasting glucose (principal); M10.9 Gout, unspecified; I10 Essential (primary) hypertension; E21.3 Hyperparathyroidism, unspecified; F45.8 Other somatoform disorders
CPT/HCPCS: 36415; 80053; 82652; 82728; 82747; 83036; 83525; 83970; 84550; 85025; G0463

== ENCOUNTER → 2020-05-22 | Outpatient (CLI) | payer MEDICARE, MEDICAID ==
--- NOTE | 2020-05-22 15:29 | DEXAMM ---
INDICATION: M85.80 OSTEOPENIA. COMPARISON: Comparison studies are from 27 July 2016 and 08 Sep 2012.. TECHNIQUE: Bone density was measured using dual-energy x-ray absorptionmetry (DEXA). FINDINGS: AP SPINE L1-L4 BMD 1.400 g/cm2 Young Adult T-Score 1.7 Age Matched Z-Score 1.8. LT FEMUR, TOTAL BMD 0.879 g/cm2 Young Adult T-Score -1.0 Age Matched Z-Score -0.9. LT NECK BMD 0.748 g/cm2 Young Adult T-Score -2.1 Age Matched Z-Score -1.3. RT FEMUR, TOTAL BMD 0.796 g/cm2 Young Adult T-Score -1.7 Age Matched Z-Score -1.5. RT NECK BMD 0.705 g/cm2 Young Adult T-Score -2.4 Age Matched Z-Score -1.7. IMPRESSION: There is normal bone density of the spine. There is low bone density of the left hip. There is low bone density of the right hip. The density of the spine has increased 1.7% since the initial exam on September 08, 2012. The density of the spine increase 0.1% since most recent exam on July 27, 2016. The density of the left hip has decreased 3.9% since initial exam on September 08, 2012. The density of the left hip has decreased 6.1% since most recent exam on July 27, 2016. The density of the right hip has decreased 9.6% since the initial exam on September 08, 2012. The density of the right hip has decreased 5.6% since the most recent exam on July 27, 2016. FOLLOW-UP: Recommendation for the next bone density exam: 2 years. <Electronically signed by Bharat Campo > 05/22/20 [id number]
== END ==
LOC: M WHC 13:34
PROVIDERS: ATTEND Family Medicine
DX: M85.851 Other specified disorders of bone density and structure, right thigh (principal); M85.852 Other specified disorders of bone density and structure, left thigh

== ENCOUNTER → 2020-08-22 | Outpatient (REF) | payer OTHER, MEDICAID ==
[2020-08-22 13:52] LABS: BASO % 0.4 % (0.0-1.0); EOS # 0.2 10^3/uL (0.0-0.5); EOS % 2.8 % (0.0-3.0); HEMATOCRIT 40.9 % (42.0-52.0); HEMOGLOBIN 13.1 g/dl (13.5-17.5); LYMPH # 1.4 10^3/uL (1.5-5.0); LYMPH % 18.7 % (24.0-44.0); MEAN CORPUSCULAR VOLUME 106.2 fl (80.0-96.0); MONO # 0.6 10^3/uL (0.0-0.8); MONO % 7.9 % (2.0-8.0); NEUTROPHILS # 5.4 10^3/uL (1.5-8.5); NEUTROPHILS % 69.6 % (36.0-66.0); PLATELET COUNT, AUTOMATED 186 10^3/uL (150-450); RED BLOOD COUNT 3.85 10^6/uL (4.30-6.10); WHITE BLOOD COUNT 7.7 10^3/uL (4.0-10.0)
[2020-08-22 13:58] LABS: HEMATOCRIT 40.9 % (42.0-52.0)
[2020-08-22 14:29] LABS: ALBUMIN 3.5 GM/DL (3.2-5.2); BLOOD UREA NITROGEN 18 MG/DL (7-18); CALCIUM LEVEL 9.6 MG/DL (8.8-10.2); CARBON DIOXIDE LEVEL 28 MEQ/L (21-32); CHLORIDE LEVEL 108 MEQ/L (98-107); CREATININE FOR GFR 1.23 MG/DL (0.70-1.30); FREE T4 1.14 NG/DL (0.76-1.46); GLOMERULAR FILTRATION RATE > 60.0 (>49); GLUCOSE, FASTING 111 MG/DL (70-100); PHOSPHORUS LEVEL 2.5 MG/DL (2.5-4.9); POTASSIUM SERUM 3.7 MEQ/L (3.5-5.1); PTH INTACT 162.9 PG/ML (18.5-88.0); SODIUM LEVEL 142 MEQ/L (136-145); TOTAL 25(OH) VITAMIN D 11.9 NG/ML (30.0-100.0); VITAMIN B12 LEVEL 1255 PG/ML (247-911)
== END ==
LOC: M SFHCPLAZ 09:40
PROVIDERS: ATTEND Family Medicine
DX: E53.8 Deficiency of other specified B group vitamins (principal); E21.3 Hyperparathyroidism, unspecified; E03.9 Hypothyroidism, unspecified

== ENCOUNTER 2020-10-06 10:55 | Outpatient (CLI) | payer OTHER, MEDICAID ==
[~2020-10-06] VITALS: Ht 162.6 cm; Wt 96.5 kg
[~2020-10-06 10:55] MED LIST changes: +OMEP40CA4 PO; -OMEP40CA97 PO
[2020-10-06 11:15] VITALS: BP 151/80
[2020-10-06] MEDS ORDERED: ZOLEDRONIC ACID 5 MG in IV 1 EA IV ONE (11:30)
[2020-10-06 11:54] VITALS: BP 145/72
== END 2020-10-06 12:05 | disposition home or self-care (01) ==
LOC: M INFU 10:55
PROVIDERS: ATTEND Family Medicine
DX: M85.80 Other specified disorders of bone density and structure, unspecified site (principal)
CPT/HCPCS: 96365; J3489

== ENCOUNTER 2020-10-13 15:18 | Emergency (ER) | payer OTHER, MEDICAID ==
[~2020-10-13] VITALS: Ht 160 cm; Wt 90.0 kg
[2020-10-13 16:30] LABS: BASO % 0.5 % (0.0-1.0); EOS # 0.3 10^3/uL (0.0-0.5); EOS % 4.4 % (0.0-3.0); HEMATOCRIT 34.6 % (42.0-52.0); HEMOGLOBIN 11.4 g/dl (13.5-17.5); LYMPH # 1.1 10^3/uL (1.5-5.0); LYMPH % 18.4 % (24.0-44.0); MEAN CORPUSCULAR HEMOGLOBIN 33.9 pg (27.0-33.0); MEAN CORPUSCULAR HGB CONC 32.9 g/dl (32.0-36.5); MONO # 0.6 10^3/uL (0.0-0.8); MONO % 10.3 % (2.0-8.0); NEUTROPHILS # 3.9 10^3/uL (1.5-8.5); NEUTROPHILS % 66.1 % (36.0-66.0); PLATELET COUNT, AUTOMATED 201 10^3/uL (150-450); RED BLOOD COUNT 3.36 10^6/uL (4.30-6.10); WHITE BLOOD COUNT 5.9 10^3/uL (4.0-10.0)
[2020-10-13 17:04] LABS: BILIRUBIN,DIRECT 0.1 MG/DL (0.0-0.2); BILIRUBIN,TOTAL 0.3 MG/DL (0.2-1.0); TOTAL PROTEIN 6.9 GM/DL (6.4-8.2)
[2020-10-13] MEDS ORDERED: ISOVUE-370 76% 100ML VIAL As Ordered ONE (17:43)
[2020-10-13 18:00] VITALS: BP 140/65
--- NOTE | 2020-10-13 18:22 | REPVR ---
PROCEDURE INFORMATION: Exam: CT Abdomen And Pelvis With Contrast Exam date and time: 10/13/2020 5:45 PM Age: 65 years old Clinical indication: Abdominal pain; Additional info: Rlq pain TECHNIQUE: Imaging protocol: Computed tomography of the abdomen and pelvis with contrast. Radiation optimization: All CT scans at this facility use at least one of these dose optimization techniques: automated exposure control; mA and/or kV adjustment per patient size (includes targeted exams where dose is matched to clinical indication); or iterative reconstruction. Contrast material: ISOVUE 370; Contrast volume: 100 ml; Contrast route: INTRAVENOUS (IV); COMPARISON: CT ABD/PEL W/IV CONTRAST ONLY 04/19/2018 1:08 AM FINDINGS: Liver: There is a diffuse decrease in hepatic parenchymal density, consistent with steatosis. Gallbladder and bile ducts: There are gallstones present. No evidence of cholecystitis demonstrated. Pancreas: Normal. No ductal dilation. Spleen: Normal. No splenomegaly. Adrenal glands: Normal. No mass. Kidneys and ureters: Multiple bilateral simple renal cysts measuring up to 3.5 cm in the left kidney. No follow-up suggested. Stomach and bowel: There is increased feces throughout the colon consistent with constipation. Appendix: No evidence of appendicitis. Note, the appendix is not clearly visualized. No inflammation in the right lower quadrant. Intraperitoneal space: Unremarkable. No free air. No significant fluid collection. Vasculature: The aortoiliac vessels demonstrate mild atherosclerotic calcification. Lymph nodes: Unremarkable. No enlarged lymph nodes. Urinary bladder: Unremarkable as visualized. Reproductive: The prostate gland demonstrates moderate hyperplasia. Bones/joints: The spine demonstrates mild degenerative changes. Moderate central spinal stenosis L2-L3, moderate to severe central spinal stenosis L3-L4 and severe central spinal stenosis L4-L5 and L5-S1. Soft tissues: Status post ventral abdominal wall hernia repair. Right inguinal hernia without incarceration. IMPRESSION: 1. There is a diffuse decrease in hepatic parenchymal density, consistent with steatosis. 2. There are gallstones present. No evidence of cholecystitis demonstrated. 3. Multiple bilateral simple renal cysts measuring up to 3.5 cm in the left kidney. No follow-up suggested. 4. Moderate prostatic hyperplasia. 5. There is increased feces throughout the colon consistent with constipation. 6. No specific signs to indicate appendicitis as described above. COMMENTS: Consistent with the [employer]'s Incidental Findings Committee white paper (J Am Majo Radiol 2018): Any incidental renal lesion less than 1 cm or classified as too small to characterize, or any incidental cystic renal lesion characterized as simple-appearing, is likely benign. No follow-up imaging is recommended for these lesions per consensus recommendations based on imaging criteria. Electronically signed by: Mark Jean On 10/13/2020 18:21:23 PM
== END 2020-10-13 19:21 | disposition home or self-care (01) ==
LOC: EDBD 15:18 → M ED 15:18
DX: R10.9 Unspecified abdominal pain (principal); R11.0 Nausea; N28.1 Cyst of kidney, acquired; N40.0 Benign prostatic hyperplasia without lower urinary tract symptoms; I11.9 Hypertensive heart disease without heart failure; I25.2 Old myocardial infarction; I25.10 Atherosclerotic heart disease of native coronary artery without angina pectoris; E78.5 Hyperlipidemia, unspecified; J44.9 Chronic obstructive pulmonary disease, unspecified; K21.9 Gastro-esophageal reflux disease without esophagitis; E03.9 Hypothyroidism, unspecified; F41.9 Anxiety disorder, unspecified; F33.9 Major depressive disorder, recurrent, unspecified; Z88.6 Allergy status to analgesic agent; Z91.013 Allergy to seafood; Z79.82 Long term (current) use of aspirin; Z79.899 Other long term (current) drug therapy; Z79.890 Hormone replacement therapy
CPT/HCPCS: 36415; 74177; 80047; 80076; 81001; 83605; 83690; 85025; 87040; 93041; 99284; Q9967

== ENCOUNTER 2020-11-18 02:15 | Emergency (ER) | payer OTHER, MEDICAID ==
[~2020-11-18] VITALS: Ht 162.6 cm; Wt 90.9 kg
[~2020-11-18 02:15] MED LIST changes: -DOXY100C PO; +DOXY100C3 PO
[2020-11-18 03:25] LABS: BASO % 0.2 % (0.0-1.0); EOS # 0.3 10^3/uL (0.0-0.5); EOS % 2.5 % (0.0-3.0); HEMATOCRIT 40.9 % (42.0-52.0); HEMOGLOBIN 13.2 g/dl (13.5-17.5); LYMPH # 0.6 10^3/uL (1.5-5.0); LYMPH % 5.2 % (24.0-44.0); MEAN CORPUSCULAR HEMOGLOBIN 33.6 pg (27.0-33.0); MEAN CORPUSCULAR HGB CONC 32.3 g/dl (32.0-36.5); MEAN CORPUSCULAR VOLUME 104.1 fl (80.0-96.0); MONO # 0.7 10^3/uL (0.0-0.8); MONO % 5.9 % (2.0-8.0); NEUTROPHILS # 10.5 10^3/uL (1.5-8.5); NEUTROPHILS % 85.8 % (36.0-66.0); PLATELET COUNT, AUTOMATED 186 10^3/uL (150-450); RED BLOOD COUNT 3.93 10^6/uL (4.30-6.10); WHITE BLOOD COUNT 12.3 10^3/uL (4.0-10.0)
[2020-11-18 03:44] LABS: CALCIUM LEVEL 9.1 MG/DL (8.8-10.2); CREATININE FOR GFR 1.31 MG/DL (0.70-1.30); GLOMERULAR FILTRATION RATE 58.1 (>49)
[2020-11-18 03:55] LABS: ALBUMIN 3.5 GM/DL (3.2-5.2); ALT/SGPT 25 U/L (12-78); BILIRUBIN,DIRECT < 0.1 MG/DL (0.0-0.2); BILIRUBIN,TOTAL 0.4 MG/DL (0.2-1.0); LIPASE 115 U/L (73-393); TOTAL PROTEIN 7.3 GM/DL (6.4-8.2)
--- NOTE | 2020-11-18 05:13 | REPVR ---
PROCEDURE INFORMATION: Exam: XR Chest Exam date and time: 11/18/2020 3:32 AM Age: 65 years old Clinical indication: Pain; Other: Not specified; Additional info: Chest pain TECHNIQUE: Imaging protocol: XR of the chest. Views: 1 view. COMPARISON: CR CHEST 2 VIEWS 05/03/2019 1:51 PM FINDINGS: Lungs: Unremarkable. No consolidation. Pleural spaces: Unremarkable. No pleural effusion. No pneumothorax. Heart/Mediastinum: Unremarkable. No cardiomegaly. 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 IMPRESSION: No focal lung consolidation however please note that the left hemidiaphragm is obscured but this is unchanged since the prior studies. Underlying left basilar abnormality cannot be excluded. Electronically signed by: Wing Franco On 11/18/2020 05:13:05 AM
[2020-11-18 06:00] VITALS: BP 120/65
--- NOTE | 2020-11-19 06:58 | ECGEPIP ---
[facility] - ED Test Date: 2020-11-18 Pat Name: FLOYD GREER Department: Room: - Gender: Male Dental Technologist: : 1955 Requested By: LELA Martinez Order Number: [id number] Reading MD: Ciro Chaves Measurements Intervals [place] Rate: 79 P: 46 GA: 174 QRS: 53 QRSD: 88 T: 56 QT: 364 QTc: 417 Interpretive Statements Normal sinus rhythm Electronically Signed on 11-19-2020 6:58:29 EDT by Ciro Chaves
== END 2020-11-18 06:14 | disposition home or self-care (01) ==
LOC: M ED 02:15
DX: T62.91XA Toxic effect of unspecified noxious substance eaten as food, accidental (unintentional), initial encounter (principal); I12.9 Hypertensive chronic kidney disease with stage 1 through stage 4 chronic kidney disease, or unspecified chronic kidney disease; E78.5 Hyperlipidemia, unspecified; N18.9 Chronic kidney disease, unspecified; Z86.19 Personal history of other infectious and parasitic diseases; Z86.14 Personal history of Methicillin resistant Staphylococcus aureus infection; Z88.6 Allergy status to analgesic agent; Z91.013 Allergy to seafood; Z79.899 Other long term (current) drug therapy

== ENCOUNTER → 2021-01-09 | Outpatient (CLI) | payer OTHER, MEDICAID ==
[2021-01-09 15:22] LABS: BASO % 0.6 % (0.0-1.0); EOS # 0.5 10^3/uL (0.0-0.5); EOS % 8.7 % (0.0-3.0); HEMATOCRIT 36.9 % (42.0-52.0); HEMOGLOBIN 11.8 g/dl (13.5-17.5); LYMPH # 1.3 10^3/uL (1.5-5.0); LYMPH % 24.2 % (24.0-44.0); MEAN CORPUSCULAR HEMOGLOBIN 33.1 pg (27.0-33.0); MEAN CORPUSCULAR VOLUME 103.4 fl (80.0-96.0); MONO # 0.6 10^3/uL (0.0-0.8); MONO % 11.6 % (2.0-8.0); NEUTROPHILS # 2.8 10^3/uL (1.5-8.5); NEUTROPHILS % 54.5 % (36.0-66.0); PLATELET COUNT, AUTOMATED 195 10^3/uL (150-450); RED BLOOD COUNT 3.57 10^6/uL (4.30-6.10); WHITE BLOOD COUNT 5.2 10^3/uL (4.0-10.0)
[2021-01-09 15:41] LABS: HEMOGLOBIN A1c 5.8 %
[2021-01-09 15:58] LABS: ALBUMIN 2.8 GM/DL (3.2-5.2); ALT/SGPT 32 U/L (12-78); BILIRUBIN,TOTAL 0.4 MG/DL (0.2-1.0); BLOOD UREA NITROGEN 15 MG/DL (7-18); C REACTIVE PROTEIN QUANTITATIV 2.64 MG/DL (0.00-0.30); CARBON DIOXIDE LEVEL 29 MEQ/L (21-32); CHLORIDE LEVEL 107 MEQ/L (98-107); CHOLESTEROL LEVEL 127 MG/DL (<200); CHOLESTEROL RISK RATIO 2.309 (<5); CPK CREATINE PHOSPHOKINASE 395 U/L (39-308); CREATININE FOR GFR 1.21 MG/DL (0.70-1.30); FERRITIN 376 NG/ML (26-388); FREE T4 0.99 NG/DL (0.76-1.46); GLOMERULAR FILTRATION RATE > 60.0 (>49); GLUCOSE, FASTING 71 MG/DL (70-100); HDL CHOLESTEROL 55 MG/DL (>40); LDL CHOLESTEROL 52 MG/DL (<100); NON-HDL-C 72 MG/DL; NT-PRO BNP 111 PG/ML (<125); SODIUM LEVEL 141 MEQ/L (136-145); TOTAL PROTEIN 6.7 GM/DL (6.4-8.2); TRIGLYCERIDES LEVEL 100 MG/DL (<150)
== END ==
LOC: M PLALAB 12:33
PROVIDERS: ATTEND Family Medicine
DX: R73.01 Impaired fasting glucose (principal); D75.89 Other specified diseases of blood and blood-forming organs; Z79.899 Other long term (current) drug therapy

== ENCOUNTER → 2021-05-21 | Outpatient (CLI) | payer OTHER, MEDICAID ==
[2021-05-21 15:32] LABS: BASO % 0.5 % (0.0-1.0); EOS # 0.4 10^3/uL (0.0-0.5); EOS % 6.3 % (0.0-3.0); HEMATOCRIT 38.4 % (42.0-52.0); HEMOGLOBIN 12.3 g/dl (13.5-17.5); LYMPH # 1.1 10^3/uL (1.5-5.0); LYMPH % 17.7 % (24.0-44.0); MEAN CORPUSCULAR HEMOGLOBIN 32.9 pg (27.0-33.0); MEAN CORPUSCULAR VOLUME 102.7 fl (80.0-96.0); MONO # 0.7 10^3/uL (0.0-0.8); MONO % 11.3 % (2.0-8.0); NEUTROPHILS # 4.1 10^3/uL (1.5-8.5); NEUTROPHILS % 63.9 % (36.0-66.0); PLATELET COUNT, AUTOMATED 185 10^3/uL (150-450); RED BLOOD COUNT 3.74 10^6/uL (4.30-6.10); WHITE BLOOD COUNT 6.4 10^3/uL (4.0-10.0)
[2021-05-21 15:33] LABS: HEMATOCRIT 38.4 % (42.0-52.0)
[2021-05-21 15:52] LABS: HEMOGLOBIN A1c 5.7 %
[2021-05-21 15:56] LABS: ALBUMIN 3.1 GM/DL (3.2-5.2); C REACTIVE PROTEIN QUANTITATIV 0.64 MG/DL (0.00-0.30); CREATININE FOR GFR 1.28 MG/DL (0.70-1.30); GLOMERULAR FILTRATION RATE 59.7 (>49); PHOSPHORUS LEVEL 1.5 MG/DL (2.5-4.9); POTASSIUM SERUM 3.6 MEQ/L (3.5-5.1); URIC ACID 6.9 MG/DL (3.5-7.2)
[2021-05-21 16:07] LABS: PTH INTACT 255.7 PG/ML (18.5-88.0)
== END ==
LOC: M PLALAB 12:09
PROVIDERS: ATTEND Family Medicine
DX: R06.02 Shortness of breath (principal); R73.01 Impaired fasting glucose; E53.8 Deficiency of other specified B group vitamins; E21.3 Hyperparathyroidism, unspecified; M10.9 Gout, unspecified

== ENCOUNTER 2021-09-14 21:44 | Emergency (ER) | payer MEDICARE, MEDICAID ==
[~2021-09-14] VITALS: Ht 162.6 cm; Wt 86.4 kg
[2021-09-15] MEDS ORDERED: ONDANSETRON 4MG/2ML VIAL IV ONE (00:40)
[2021-09-15 00:48] LABS: BASO % 0.2 % (0.0-1.0); EOS % 0.2 % (0.0-3.0); HEMATOCRIT 38.7 % (42.0-52.0); HEMOGLOBIN 12.9 g/dl (13.5-17.5); LYMPH # 0.8 10^3/uL (1.5-5.0); LYMPH % 6.4 % (24.0-44.0); MEAN CORPUSCULAR HEMOGLOBIN 33.7 pg (27.0-33.0); MEAN CORPUSCULAR HGB CONC 33.3 g/dl (32.0-36.5); MONO # 0.5 10^3/uL (0.0-0.8); MONO % 4.4 % (2.0-8.0); NEUTROPHILS # 10.8 10^3/uL (1.5-8.5); NEUTROPHILS % 88.4 % (36.0-66.0); PLATELET COUNT, AUTOMATED 188 10^3/uL (150-450); RED BLOOD COUNT 3.83 10^6/uL (4.30-6.10); WHITE BLOOD COUNT 12.2 10^3/uL (4.0-10.0)
[2021-09-15 01:33] LABS: CK-MB VALUE MASS 3.4 NG/ML (<3.6); MB/CK RELATIVE INDEX 1.32 (< OR =4)
[2021-09-15 03:16] LABS: ALBUMIN 3.2 GM/DL (3.2-5.2); ALT/SGPT 19 U/L (12-78); BILIRUBIN,DIRECT 0.2 MG/DL (0.0-0.2); BILIRUBIN,TOTAL 0.7 MG/DL (0.2-1.0); BLOOD UREA NITROGEN 14 MG/DL (7-18); CALCIUM LEVEL 10.1 MG/DL (8.8-10.2); CARBON DIOXIDE LEVEL 33 MEQ/L (21-32); CHLORIDE LEVEL 105 MEQ/L (98-107); CREATININE FOR GFR 1.12 MG/DL (0.70-1.30); GLOMERULAR FILTRATION RATE > 60.0 (>49); GLUCOSE, FASTING 131 MG/DL (70-100); LIPASE 89 U/L (73-393); POTASSIUM SERUM 4.5 MEQ/L (3.5-5.1); SODIUM LEVEL 141 MEQ/L (136-145); TOTAL PROTEIN 7.2 GM/DL (6.4-8.2)
[2021-09-15] MEDS ORDERED: ISOVUE-370 76% 100ML VIAL As Ordered ONE (04:08)
[2021-09-15] MEDS ORDERED: MORPHINE 2 MG/ML 1ML VIAL IV ONE (04:45)
[2021-09-15] MEDS ORDERED: AMOX875T2 PO (05:57)
[2021-09-15 06:00] VITALS: BP 164/79
== END 2021-09-15 06:17 | disposition home or self-care (01) ==
LOC: M ED 21:44 → EDBD 21:44 → M ED 09-15 06:17
DX: K80.80 Other cholelithiasis without obstruction (principal); R94.31 Abnormal electrocardiogram [ECG] [EKG]; I10 Essential (primary) hypertension; F32.A Depression, unspecified; E78.5 Hyperlipidemia, unspecified; Z86.79 Personal history of other diseases of the circulatory system; K21.9 Gastro-esophageal reflux disease without esophagitis; Z91.013 Allergy to seafood; Z88.6 Allergy status to analgesic agent; Z79.51 Long term (current) use of inhaled steroids; Z79.899 Other long term (current) drug therapy
CPT/HCPCS: 36415; 71045; 71275; 76705; 80047; 80048; 80076; 82550; 82553; 83605; 83690; 84484; 85025; 93005; 93041; 96374; 96375; 99285; J2270; J2405; Q9967

== ENCOUNTER 2021-09-18 16:38 | Inpatient (IN) | payer MEDICARE, MEDICAID ==
[~2021-09-18] VITALS: Ht 162.6 cm; Wt 86.0 kg
[~2021-09-18 16:38] MED LIST changes: +AMOX875T2 PO
[2021-09-18] MEDS ORDERED: MOM 30ML SUSPENSION UDC PO ONE (21:30)
[2021-09-18] MEDS ORDERED: NS 500 ML IV ONE (21:45)
[2021-09-18 22:20] LABS: BASO % 0.2 % (0.0-1.0); EOS # 0.1 10^3/uL (0.0-0.5); EOS % 0.5 % (0.0-3.0); HEMATOCRIT 34.7 % (42.0-52.0); HEMOGLOBIN 11.3 g/dl (13.5-17.5); LYMPH # 0.7 10^3/uL (1.5-5.0); LYMPH % 5.3 % (24.0-44.0); MEAN CORPUSCULAR HEMOGLOBIN 33.4 pg (27.0-33.0); MEAN CORPUSCULAR HGB CONC 32.6 g/dl (32.0-36.5); MEAN CORPUSCULAR VOLUME 102.7 fl (80.0-96.0); MONO # 1.5 10^3/uL (0.0-0.8); MONO % 11.7 % (2.0-8.0); NEUTROPHILS # 10.4 10^3/uL (1.5-8.5); NEUTROPHILS % 81.7 % (36.0-66.0); PLATELET COUNT, AUTOMATED 204 10^3/uL (150-450); RED BLOOD COUNT 3.38 10^6/uL (4.30-6.10); WHITE BLOOD COUNT 12.7 10^3/uL (4.0-10.0)
[2021-09-18 22:41] LABS: ERYTHROCYTE SEDIMENTATION RATE 126 mm/hr (0-20)
[2021-09-18 22:48] LABS: ALBUMIN 2.7 GM/DL (3.2-5.2); BILIRUBIN,DIRECT 0.6 MG/DL (0.0-0.2); CREATININE FOR GFR 1.61 MG/DL (0.70-1.30); GLOMERULAR FILTRATION RATE 45.7 (>49); POTASSIUM SERUM 4.1 MEQ/L (3.5-5.1); TOTAL PROTEIN 7.1 GM/DL (6.4-8.2)
[2021-09-18 22:53] LABS: RSV AMPLIFICATION NEGATIVE (NEGATIVE)
[2021-09-18] MEDS ORDERED: ISOVUE-370 76% 100ML VIAL As Ordered ONE (23:09)
[2021-09-18] MEDS ORDERED: ACETAMINOPHEN TAB 650MG DOSE (2X325MG) PO ONE (23:55)
[2021-09-19] VITALS (8 sets, daily range): BP systolic 112–138; BP diastolic 55–67
[2021-09-19] MEDS ORDERED: PIPERACILLIN/TAZOBACTAM SOD 3.375 GM in D5W MINI-BAG PLUS 50 ML IV ONE ×2
[2021-09-19] MEDS ORDERED: MORPHINE 4 MG/ML 1ML VIAL/SYRINGE IV PRN (00:30)
[2021-09-19] MEDS ORDERED: NS 1,000 ML IV ONE (00:30)
[2021-09-19] MEDS ORDERED: ALLO300T2 PO (00:48)
[2021-09-19] MEDS ORDERED: DICL1GEL3 TOP (00:48)
[2021-09-19] MEDS ORDERED: ACET-683 PO (00:48)
[2021-09-19] MEDS ORDERED: ONDA-83 PO (00:48)
[2021-09-19] MEDS ORDERED: VALS1TAB66 PO (00:49)
[2021-09-19] MEDS ORDERED: FOLI1TAB11 PO (00:49)
[2021-09-19] MEDS ORDERED: HOME MED LIST COMPLETE! XX SCH (00:50)
[2021-09-19] MEDS ORDERED: FLUTICASONE PROP 0.05% NASAL SPRAY 16 GM (FLONASE) PRN (01:05)
[2021-09-19] MEDS ORDERED: ALBUTEROL 90 MCG/ACT 8GM HFA INHALER INH PRN (01:05)
[2021-09-19] MEDS ORDERED: NITROGLYCERIN 0.4 MG SUBL TABLET SL PRN (01:05)
[2021-09-19 02:24] LABS: HEMATOCRIT 31.9 % (42.0-52.0); HEMOGLOBIN 10.5 g/dl (13.5-17.5); MEAN CORPUSCULAR HEMOGLOBIN 34.1 pg (27.0-33.0); MEAN CORPUSCULAR HGB CONC 32.9 g/dl (32.0-36.5); MEAN CORPUSCULAR VOLUME 103.6 fl (80.0-96.0); PLATELET COUNT, AUTOMATED 189 10^3/uL (150-450); RED BLOOD COUNT 3.08 10^6/uL (4.30-6.10); WHITE BLOOD COUNT 12.6 10^3/uL (4.0-10.0)
[2021-09-19 02:35] LABS: INR 1.11; PROTHROMBIN TIME 14.7 SECONDS (12.7-14.5)
[2021-09-19 02:36] LABS: PARTIAL THROMBOPLASTIN TIME 40.5 SECONDS (25.9-37.0)
[2021-09-19] MEDS: NS 1,000 ML IV SCH ×3 (02:50→13:43)
[2021-09-19 02:51] LABS: CALCIUM LEVEL 9.5 MG/DL (8.8-10.2); CREATININE FOR GFR 1.52 MG/DL (0.70-1.30); GLOMERULAR FILTRATION RATE 48.8 (>49); MAGNESIUM LEVEL 1.9 MG/DL (1.8-2.4); POTASSIUM SERUM 4.5 MEQ/L (3.5-5.1)
[2021-09-19] MEDS: PIPERACILLIN/TAZOBACTAM SOD 3.375 GM in D5W MINI-BAG PLUS 50 ML IV SCH ×3 (06:34→18:15)
[2021-09-19] MEDS: LEVOTHYROXINE 88MCG TABLET (0.088 MG) PO SCH (06:35)
[2021-09-19] MEDS: ADVAIR HFA 230/21MCG INHALER INH SCH ×2 (07:59→19:24)
[2021-09-19] MEDS: DOCUSATE SODIUM 100MG CAPSULE PO SCH ×2 (09:39→21:33)
[2021-09-19] MEDS: OMEPRAZOLE 20MG CAP PO SCH ×2 (09:39→21:33)
[2021-09-19] MEDS: allopurinoL 300 MG TAB PO SCH (09:40)
[2021-09-19] MEDS: VALSARTAN 80 MG TAB (DIOVAN) PO SCH ×2 (09:42→21:32)
[2021-09-19] MEDS: LORATADINE 10 MG TAB PO SCH (09:43)
[2021-09-19] MEDS: FOLIC ACID 1 MG TAB PO SCH (09:43)
[2021-09-19] MEDS ORDERED: fentaNYL 250 MCG/5 ML INJECTION As Ordered ONE (10:29)
[2021-09-19] MEDS ORDERED: LIDOCAINE 2% 100MG/5ML SDV (FOR ANES.) As Ordered ONE (10:31)
[2021-09-19] MEDS ORDERED: MIDAZOLAM INJ 2MG/2ML VIAL (J2250 PER 1MG) As Ordered ONE (10:31)
[2021-09-19] MEDS ORDERED: ROCURONIUM BROMIDE 50 MG/5 ML VIAL As Ordered ONE ×2 (10:37→12:06)
[2021-09-19] MEDS ORDERED: ONDANSETRON 4MG/2ML VIAL As Ordered ONE (10:38)
[2021-09-19] MEDS ORDERED: METOCLOPRAMIDE INJ 10MG/2ML VIAL (J2765 PER 1) As Ordered ONE (10:38)
[2021-09-19] MEDS ORDERED: KETOROLAC 60MG 2ML VIAL As Ordered ONE (10:38)
[2021-09-19] MEDS ORDERED: BUPIVACAINE/EPIN 0.25% 30 ML VIAL As Ordered ONE (10:41)
[2021-09-19] MEDS ORDERED: PHENYLephrine 500MCG 5ML (100MCG/ML) SYRINGE As Ordered ONE (11:40)
[2021-09-19] MEDS ORDERED: ZOSYN 3.375GM VIAL As Ordered ONE (11:41)
[2021-09-19] MEDS ORDERED: ACETAMINOPHEN 1000MG 100ML IV BTL (OFIRMEV) (J0131 PER 10MG) As Ordered ONE (11:57)
[2021-09-19] MEDS ORDERED: SUGAMMADEX SODIUM 500 MG/5 ML VIAL (BRIDION) As Ordered ONE (11:57)
[2021-09-19] MEDS ORDERED: oxyCODONE 5MG TAB PO PRN (13:00)
[2021-09-19] MEDS ORDERED: MORPHINE 2 MG/ML 1ML VIAL IV PRN (13:00)
[2021-09-19] MEDS ORDERED: fentaNYL 100 MCG/2 ML INJECTION IV PRN (13:00)
[2021-09-19] MEDS ORDERED: ONDANSETRON 4MG/2ML VIAL IV PRN (13:00)
[2021-09-19] MEDS ORDERED: LR 1,000 ML IV SCH (13:00)
[2021-09-19] MEDS ORDERED: ALBUTEROL SULFATE 2.5 MG/0.5 ML INH NEB SOLN INH ONE (13:00)
[2021-09-19] MEDS: ONDANSETRON 4MG/2ML VIAL IV PRN (13:27)
[2021-09-19 17:03] LABS: TOTAL PROTEIN,RANDOM URINE 157.9 MG/DL (0.0-12.0)
[2021-09-19] MEDS: TAMSULOSIN 0.4 MG CAP PO SCH (21:00)
[2021-09-19] MEDS: PARoxetine 20MG TABLET PO SCH (21:33)
[2021-09-19] MEDS: ASPIRIN 81MG ENTERIC TABLET PO SCH (21:33)
[2021-09-19] MEDS: ATORVASTATIN 20 MG TAB PO SCH (21:33)
[2021-09-19] MEDS: MONTELUKAST 10 MG TAB PO SCH (21:33)
[2021-09-20] MEDS: PIPERACILLIN/TAZOBACTAM SOD 3.375 GM in D5W MINI-BAG PLUS 50 ML IV SCH ×4 (00:06→18:02)
[2021-09-20] MEDS: NS 1,000 ML IV SCH ×3 (00:06→18:02)
[2021-09-20 00:30] VITALS: BP 131/65
[2021-09-20] MEDS: MORPHINE 2 MG/ML 1ML VIAL IV PRN ×2 (04:26→11:30)
[2021-09-20 04:30] VITALS: BP 133/65
[2021-09-20] MEDS: LEVOTHYROXINE 88MCG TABLET (0.088 MG) PO SCH (06:38)
[2021-09-20] MEDS: ADVAIR HFA 230/21MCG INHALER INH SCH ×2 (07:29→20:17)
[2021-09-20] MEDS: IPRATROPIUM 0.5MG/ALBUTEROL 2.5MG INH SOL UD 3ML (DUONEB) INH PRN (07:30)
[2021-09-20 07:37] LABS: HEMATOCRIT 32.2 % (42.0-52.0); HEMOGLOBIN 10.4 g/dl (13.5-17.5); MEAN CORPUSCULAR HEMOGLOBIN 34.2 pg (27.0-33.0); MEAN CORPUSCULAR HGB CONC 32.3 g/dl (32.0-36.5); MEAN CORPUSCULAR VOLUME 105.9 fl (80.0-96.0); PLATELET COUNT, AUTOMATED 207 10^3/uL (150-450); RED BLOOD COUNT 3.04 10^6/uL (4.30-6.10); WHITE BLOOD COUNT 14.1 10^3/uL (4.0-10.0)
[2021-09-20 08:07] LABS: CREATININE FOR GFR 1.33 MG/DL (0.70-1.30); GLOMERULAR FILTRATION RATE 56.9 (>49); POTASSIUM SERUM 4.8 MEQ/L (3.5-5.1)
[2021-09-20] MEDS: DOCUSATE SODIUM 100MG CAPSULE PO SCH ×2 (08:17→20:14)
[2021-09-20] MEDS: allopurinoL 300 MG TAB PO SCH (08:17)
[2021-09-20] MEDS: OMEPRAZOLE 20MG CAP PO SCH ×2 (08:17→20:15)
[2021-09-20] MEDS: VALSARTAN 80 MG TAB (DIOVAN) PO SCH ×2 (08:18→20:15)
[2021-09-20] MEDS: FOLIC ACID 1 MG TAB PO SCH (08:19)
[2021-09-20] MEDS: LORATADINE 10 MG TAB PO SCH (08:19)
[2021-09-20 10:00] VITALS: BP 121/57
[2021-09-20 11:28] LABS: BILIRUBIN,DIRECT 0.7 MG/DL (0.0-0.2); BILIRUBIN,TOTAL 1.1 MG/DL (0.2-1.0); TOTAL PROTEIN 6.1 GM/DL (6.4-8.2)
[2021-09-20 14:00] VITALS: BP 118/57
[2021-09-20] MEDS: guaiFENesin SYRUP 200MG 10ML UDC PO PRN (18:02)
[2021-09-20 20:00] VITALS: O2SAT 95
[2021-09-20] MEDS: ASPIRIN 81MG ENTERIC TABLET PO SCH (20:14)
[2021-09-20] MEDS: ACETAMINOPHEN TAB 650MG DOSE (2X325MG) PO PRN (20:14)
[2021-09-20] MEDS: MONTELUKAST 10 MG TAB PO SCH (20:14)
[2021-09-20] MEDS: TAMSULOSIN 0.4 MG CAP PO SCH (20:15)
[2021-09-20] MEDS: PARoxetine 20MG TABLET PO SCH (20:15)
[2021-09-20] MEDS: ATORVASTATIN 20 MG TAB PO SCH (20:15)
[2021-09-20 22:00] VITALS: BP 133/69
[2021-09-21] MEDS: PIPERACILLIN/TAZOBACTAM SOD 3.375 GM in D5W MINI-BAG PLUS 50 ML IV SCH ×4 (00:15→17:39)
[2021-09-21] MEDS: NS 1,000 ML IV SCH (00:15)
[2021-09-21] MEDS: guaiFENesin SYRUP 200MG 10ML UDC PO PRN ×3 (04:35→20:22)
[2021-09-21] MEDS: LEVOTHYROXINE 88MCG TABLET (0.088 MG) PO SCH (05:00)
[2021-09-21 06:00] VITALS: BP 137/72
[2021-09-21 06:31] LABS: HEMATOCRIT 30.5 % (42.0-52.0); HEMOGLOBIN 9.8 g/dl (13.5-17.5); MEAN CORPUSCULAR HEMOGLOBIN 33.6 pg (27.0-33.0); MEAN CORPUSCULAR HGB CONC 32.1 g/dl (32.0-36.5); MEAN CORPUSCULAR VOLUME 104.5 fl (80.0-96.0); PLATELET COUNT, AUTOMATED 206 10^3/uL (150-450); RED BLOOD COUNT 2.92 10^6/uL (4.30-6.10); WHITE BLOOD COUNT 9.7 10^3/uL (4.0-10.0)
[2021-09-21 06:53] LABS: ALBUMIN 1.7 GM/DL (3.2-5.2); ALT/SGPT 22 U/L (12-78); BILIRUBIN,TOTAL 0.8 MG/DL (0.2-1.0); BLOOD UREA NITROGEN 10 MG/DL (7-18); CALCIUM LEVEL 9.9 MG/DL (8.8-10.2); CARBON DIOXIDE LEVEL 25 MEQ/L (21-32); CHLORIDE LEVEL 110 MEQ/L (98-107); CREATININE FOR GFR 1.15 MG/DL (0.70-1.30); GLOMERULAR FILTRATION RATE > 60.0 (>49); GLUCOSE, FASTING 106 MG/DL (70-100); SODIUM LEVEL 139 MEQ/L (136-145); TOTAL PROTEIN 6.4 GM/DL (6.4-8.2)
[2021-09-21] MEDS: ADVAIR HFA 230/21MCG INHALER INH SCH ×2 (07:29→20:09)
[2021-09-21] MEDS: IPRATROPIUM 0.5MG/ALBUTEROL 2.5MG INH SOL UD 3ML (DUONEB) INH PRN (07:30)
[2021-09-21] MEDS: VALSARTAN 80 MG TAB (DIOVAN) PO SCH ×2 (09:00→20:21)
[2021-09-21] MEDS: DOCUSATE SODIUM 100MG CAPSULE PO SCH ×2 (09:13→20:21)
[2021-09-21] MEDS: OMEPRAZOLE 20MG CAP PO SCH ×2 (09:13→20:22)
[2021-09-21] MEDS: allopurinoL 300 MG TAB PO SCH (09:16)
[2021-09-21] MEDS: LORATADINE 10 MG TAB PO SCH (09:16)
[2021-09-21] MEDS: FOLIC ACID 1 MG TAB PO SCH (09:16)
[2021-09-21] MEDS: ACETAMINOPHEN TAB 650MG DOSE (2X325MG) PO PRN ×2 (10:58→20:22)
[2021-09-21 14:00] VITALS: BP 120/60
[2021-09-21 14:30] VITALS: O2SAT 95
[2021-09-21] MEDS: ASPIRIN 81MG ENTERIC TABLET PO SCH (20:21)
[2021-09-21] MEDS: MONTELUKAST 10 MG TAB PO SCH (20:21)
[2021-09-21] MEDS: PARoxetine 20MG TABLET PO SCH (20:22)
[2021-09-21] MEDS: ATORVASTATIN 20 MG TAB PO SCH (20:22)
[2021-09-21] MEDS: TAMSULOSIN 0.4 MG CAP PO SCH (20:22)
[2021-09-21 21:00] VITALS: O2SAT 92
[2021-09-21 21:17] VITALS: BP 138/73
[2021-09-22] MEDS: PIPERACILLIN/TAZOBACTAM SOD 3.375 GM in D5W MINI-BAG PLUS 50 ML IV SCH ×3 (00:17→12:29)
[2021-09-22] MEDS: ONDANSETRON 4MG/2ML VIAL IV PRN ×2 (00:21→05:54)
[2021-09-22] MEDS: guaiFENesin SYRUP 200MG 10ML UDC PO PRN (05:04)
[2021-09-22] MEDS: ACETAMINOPHEN TAB 650MG DOSE (2X325MG) PO PRN (05:05)
[2021-09-22] MEDS: LEVOTHYROXINE 88MCG TABLET (0.088 MG) PO SCH (05:05)
[2021-09-22 06:00] VITALS: BP 148/73
[2021-09-22 06:00] LABS: HEMATOCRIT 32.5 % (42.0-52.0); HEMOGLOBIN 10.3 g/dl (13.5-17.5); MEAN CORPUSCULAR HEMOGLOBIN 32.5 pg (27.0-33.0); MEAN CORPUSCULAR HGB CONC 31.7 g/dl (32.0-36.5); MEAN CORPUSCULAR VOLUME 102.5 fl (80.0-96.0); PLATELET COUNT, AUTOMATED 281 10^3/uL (150-450); RED BLOOD COUNT 3.17 10^6/uL (4.30-6.10); WHITE BLOOD COUNT 9.1 10^3/uL (4.0-10.0)
[2021-09-22 06:30] LABS: BLOOD UREA NITROGEN 9 MG/DL (7-18); CALCIUM LEVEL 9.3 MG/DL (8.8-10.2); CARBON DIOXIDE LEVEL 26 MEQ/L (21-32); CHLORIDE LEVEL 111 MEQ/L (98-107); CREATININE FOR GFR 1.08 MG/DL (0.70-1.30); GLOMERULAR FILTRATION RATE > 60.0 (>49); GLUCOSE, FASTING 99 MG/DL (70-100); MAGNESIUM LEVEL 1.9 MG/DL (1.8-2.4); POTASSIUM SERUM 3.8 MEQ/L (3.5-5.1); SODIUM LEVEL 143 MEQ/L (136-145)
[2021-09-22] MEDS: IPRATROPIUM 0.5MG/ALBUTEROL 2.5MG INH SOL UD 3ML (DUONEB) INH PRN (07:35)
[2021-09-22] MEDS: ADVAIR HFA 230/21MCG INHALER INH SCH (07:35)
[2021-09-22 09:00] VITALS: O2SAT 89
[2021-09-22] MEDS: FOLIC ACID 1 MG TAB PO SCH (09:03)
[2021-09-22] MEDS: allopurinoL 300 MG TAB PO SCH (09:03)
[2021-09-22] MEDS: DOCUSATE SODIUM 100MG CAPSULE PO SCH (09:03)
[2021-09-22] MEDS: OMEPRAZOLE 20MG CAP PO SCH (09:03)
[2021-09-22] MEDS: LORATADINE 10 MG TAB PO SCH (09:03)
[2021-09-22 09:04] VITALS: BP 130/71
[2021-09-22] MEDS: VALSARTAN 80 MG TAB (DIOVAN) PO SCH (09:04)
[2021-09-22] MEDS ORDERED: AMOX875T2 PO ×2 (09:05→11:59)
[2021-09-22] MEDS ORDERED: PRED20TA PO (11:59)
== END 2021-09-22 15:10 | disposition home health service (06) | DRG 853 ==
LOC: EDBD 16:38 → M ED 16:38 → M ED INP 09-19 00:27 → M MS5PR 09-19 01:50
PROVIDERS: ADMIT Internal Medicine; ATTEND Internal Medicine
PROC: 0FT44ZZ Resection of Gallbladder, Percutaneous Endoscopic Approach (ICD-10-PCS; principal; 2021-09-19 10:22)
DX: A41.9 Sepsis, unspecified organism (principal); J86.9 Pyothorax without fistula; K81.0 Acute cholecystitis; N17.9 Acute kidney failure, unspecified; K21.9 Gastro-esophageal reflux disease without esophagitis; E03.9 Hypothyroidism, unspecified; E78.5 Hyperlipidemia, unspecified; N40.0 Benign prostatic hyperplasia without lower urinary tract symptoms; J44.9 Chronic obstructive pulmonary disease, unspecified; R09.02 Hypoxemia; I10 Essential (primary) hypertension; F41.9 Anxiety disorder, unspecified; F32.A Depression, unspecified; Z98.41 Cataract extraction status, right eye; Z98.42 Cataract extraction status, left eye; G47.33 Obstructive sleep apnea (adult) (pediatric); M10.9 Gout, unspecified; Z79.899 Other long term (current) drug therapy; Z79.82 Long term (current) use of aspirin; Z91.013 Allergy to seafood; Z88.6 Allergy status to analgesic agent

== ENCOUNTER 2021-10-28 13:58 | Outpatient (CLI) | payer MEDICARE, MEDICAID ==
[~2021-10-28] VITALS: Ht 160 cm; Wt 81.8 kg
[~2021-10-28 13:58] MED LIST changes: +ACET-683 PO; +ALLO300T2 PO; +DICL1GEL3 TOP; +ONDA-83 PO; +PRED20TA PO; +VALS1TAB66 PO
[2021-10-28] MEDS ORDERED: ZOLEDRONIC ACID 5 MG in IV 1 EA IV ONE (14:00)
[2021-10-28 14:20] VITALS: BP 138/61
[2021-10-28 15:05] VITALS: BP 128/63
== END 2021-10-28 15:05 | disposition home or self-care (01) ==
LOC: M INFU 13:58
PROVIDERS: ATTEND Family Medicine
DX: M85.9 Disorder of bone density and structure, unspecified (principal); Z88.6 Allergy status to analgesic agent; Z91.013 Allergy to seafood
CPT/HCPCS: 96365; J3489

== ENCOUNTER → 2022-01-26 | Outpatient (CLI) | payer MEDICARE, MEDICAID ==
[2022-01-26 15:38] LABS: HEMATOCRIT 37.2 % (42.0-52.0); HEMOGLOBIN 11.3 g/dl (13.5-17.5); MEAN CORPUSCULAR HEMOGLOBIN 30.5 pg (27.0-33.0); MEAN CORPUSCULAR HGB CONC 30.4 g/dl (32.0-36.5); MEAN CORPUSCULAR VOLUME 100.3 fl (80.0-96.0); PLATELET COUNT, AUTOMATED 232 10^3/uL (150-450); RED BLOOD COUNT 3.71 10^6/uL (4.30-6.10); WHITE BLOOD COUNT 6.6 10^3/uL (4.0-10.0)
[2022-01-26 16:29] LABS: ALBUMIN 3.4 GM/DL (3.2-5.2); ALT/SGPT 18 U/L (12-78); BILIRUBIN,TOTAL 0.3 MG/DL (0.2-1.0); BLOOD UREA NITROGEN 10 MG/DL (7-18); CALCIUM LEVEL 9.1 MG/DL (8.8-10.2); CARBON DIOXIDE LEVEL 28 MEQ/L (21-32); CHLORIDE LEVEL 107 MEQ/L (98-107); GLOMERULAR FILTRATION RATE > 60.0 (>49); GLUCOSE, FASTING 87 MG/DL (70-100); MAGNESIUM LEVEL 1.9 MG/DL (1.8-2.4); POTASSIUM SERUM 3.8 MEQ/L (3.5-5.1); SODIUM LEVEL 142 MEQ/L (136-145); TOTAL PROTEIN 7.5 GM/DL (6.4-8.2)
== END ==
LOC: M PLALAB 13:33
PROVIDERS: ATTEND Physician Assistant
DX: R53.83 Other fatigue (principal)

== ENCOUNTER → 2022-02-02 | Outpatient (CLI) | payer MEDICARE, MEDICAID ==
[2022-02-02 13:53] LABS: BASO % 0.6 % (0.0-1.0); EOS # 0.7 10^3/uL (0.0-0.5); EOS % 10.5 % (0.0-3.0); HEMATOCRIT 37.1 % (42.0-52.0); HEMOGLOBIN 11.6 g/dl (13.5-17.5); LYMPH # 1.1 10^3/uL (1.5-5.0); LYMPH % 17.2 % (24.0-44.0); MEAN CORPUSCULAR HEMOGLOBIN 31.2 pg (27.0-33.0); MEAN CORPUSCULAR HGB CONC 31.3 g/dl (32.0-36.5); MEAN CORPUSCULAR VOLUME 99.7 fl (80.0-96.0); MONO # 0.8 10^3/uL (0.0-0.8); MONO % 12.8 % (2.0-8.0); NEUTROPHILS # 3.8 10^3/uL (1.5-8.5); NEUTROPHILS % 58.7 % (36.0-66.0); PLATELET COUNT, AUTOMATED 221 10^3/uL (150-450); RED BLOOD COUNT 3.72 10^6/uL (4.30-6.10); WHITE BLOOD COUNT 6.5 10^3/uL (4.0-10.0)
[2022-02-02 14:13] LABS: HEMOGLOBIN A1c 5.5 %
[2022-02-02 14:54] LABS: CHOLESTEROL RISK RATIO 3.5 (<5); FREE T4 1.09 NG/DL (0.76-1.46); THYROID STIMULATING HORMONE 1.45 uIU/ML (0.358-3.740); URIC ACID 8.3 MG/DL (3.5-7.2)
[2022-02-02 17:42] LABS: PTH INTACT 196.1 PG/ML (18.5-88.0); TOTAL 25(OH) VITAMIN D 13.2 NG/ML (30.0-100.0)
== END ==
LOC: M PLALAB 10:22
PROVIDERS: ATTEND Nurse Practitioner Family
DX: M10.9 Gout, unspecified (principal); I10 Essential (primary) hypertension; E78.5 Hyperlipidemia, unspecified; E21.3 Hyperparathyroidism, unspecified; R73.01 Impaired fasting glucose; E53.8 Deficiency of other specified B group vitamins; E03.9 Hypothyroidism, unspecified

== ENCOUNTER 2022-05-04 09:43 | Emergency (ER) | payer MEDICARE, MEDICAID ==
[~2022-05-04] VITALS: Ht 162.6 cm; Wt 80.9 kg
[2022-05-04 10:46] LABS: BASO % 0.5 % (0.0-1.0); EOS # 0.3 10^3/uL (0.0-0.5); EOS % 5.8 % (0.0-3.0); HEMATOCRIT 33.6 % (42.0-52.0); HEMOGLOBIN 10.5 g/dl (13.5-17.5); LYMPH # 1.2 10^3/uL (1.5-5.0); LYMPH % 20.2 % (24.0-44.0); MEAN CORPUSCULAR HEMOGLOBIN 31.8 pg (27.0-33.0); MEAN CORPUSCULAR HGB CONC 31.3 g/dl (32.0-36.5); MEAN CORPUSCULAR VOLUME 101.8 fl (80.0-96.0); MONO # 0.6 10^3/uL (0.0-0.8); MONO % 11.1 % (2.0-8.0); NEUTROPHILS # 3.5 10^3/uL (1.5-8.5); PLATELET COUNT, AUTOMATED 179 10^3/uL (150-450); WHITE BLOOD COUNT 5.7 10^3/uL (4.0-10.0)
[2022-05-04 11:07] LABS: LIPASE 36 U/L (12-53)
[2022-05-04 11:09] LABS: ALBUMIN 3.2 G/DL (3.2-5.2); ALKALINE PHOSPHATASE 99 U/L (46-116); ALT/SGPT 10 U/L (7.0-40); AST/SGOT 13 U/L (<34); BILIRUBIN,DIRECT 0.2 MG/DL (<0.4); BILIRUBIN,TOTAL 0.3 MG/DL (0.3-1.2); BLOOD UREA NITROGEN 9 MG/DL (9-23); CALCIUM LEVEL 9.3 MG/DL (8.3-10.6); CARBON DIOXIDE LEVEL 29 MMOL/L (20-31); CHLORIDE LEVEL 107 MMOL/L (98-107); CREATININE FOR GFR 1.03 MG/DL (0.70-1.30); GLOMERULAR FILTRATION RATE > 60.0 (>49); GLUCOSE, FASTING 87 MG/DL (74-106); POTASSIUM SERUM 4.1 MMOL/L (3.5-5.1); SODIUM LEVEL 141 MMOL/L (136-145); TOTAL PROTEIN 7.1 G/DL (5.7-8.2)
[2022-05-04] MEDS ORDERED: ONDANSETRON 4MG 2ML VIAL IV ONE (14:05)
[2022-05-04] MEDS ORDERED: NS 500 ML IV ONE (14:05)
[2022-05-04] MEDS ORDERED: MORPHINE 4 MG/ML 1ML VIAL IV ONE (14:05)
[2022-05-04] MEDS ORDERED: TRAM50TA2 PO (16:06)
[2022-05-04] MEDS ORDERED: MIRA3350 PO (16:13)
[2022-05-04 16:20] VITALS: BP 157/70
[2022-05-04 16:53] LABS: CA19-9 TUMOR MARKER,CARBOHYDRA 8.6 U/ML (<35.0)
== END 2022-05-04 16:59 | disposition home or self-care (01) ==
LOC: M ED 09:43
DX: D37.6 Neoplasm of uncertain behavior of liver, gallbladder and bile ducts (principal); R10.31 Right lower quadrant pain; F32.A Depression, unspecified; G47.33 Obstructive sleep apnea (adult) (pediatric); F41.9 Anxiety disorder, unspecified; I10 Essential (primary) hypertension; Z88.6 Allergy status to analgesic agent; Z91.013 Allergy to seafood; Z79.52 Long term (current) use of systemic steroids; Z79.811 Long term (current) use of aromatase inhibitors; Z79.899 Other long term (current) drug therapy
CPT/HCPCS: 74176; 80048; 80076; 82105; 83690; 85025; 86301; 96361; 96374; 99284; J2405

== ENCOUNTER → 2022-05-06 | Outpatient (CLI) | payer MEDICARE, MEDICAID ==
[~2022-05-06] MED LIST changes: +TRAM50TA2 PO
[2022-05-06 13:08] LABS: ALBUMIN 3.1 G/DL (3.2-5.2); BLOOD UREA NITROGEN 10 MG/DL (9-23); CALCIUM LEVEL 9.1 MG/DL (8.3-10.6); CARBON DIOXIDE LEVEL 30 MMOL/L (20-31); CHLORIDE LEVEL 102 MMOL/L (98-107); CREATININE FOR GFR 1.07 MG/DL (0.70-1.30); GLOMERULAR FILTRATION RATE > 60.0 (>49); GLUCOSE, FASTING 90 MG/DL (74-106); PHOSPHORUS LEVEL 1.9 MG/DL (2.4-5.1); PTH INTACT 156.1 PG/ML (18.5-88.0); SODIUM LEVEL 137 MMOL/L (136-145)
[2022-05-06 13:11] LABS: INR 0.95; PROTHROMBIN TIME 12.9 SECONDS (12.5-14.5)
[2022-05-06 13:12] LABS: PARTIAL THROMBOPLASTIN TIME 34.8 SECONDS (24.8-34.2)
== END ==
LOC: M PLALAB 09:50
PROVIDERS: ATTEND Family Medicine
DX: E21.3 Hyperparathyroidism, unspecified (principal); R16.0 Hepatomegaly, not elsewhere classified
CPT/HCPCS: 36415; 80069; 82172; 82378; 83010; 83883; 83970; 85610; 85730; G0103

== ENCOUNTER → 2022-06-03 | Outpatient (CLI) | payer MEDICARE, MEDICAID ==
[~2022-06-03] MED LIST changes: +PROHANCE 279.3MG/ML 15ML VIAL ONE
== END ==
LOC: M PLAIMG 07:24
PROVIDERS: ATTEND Family Medicine
DX: R16.0 Hepatomegaly, not elsewhere classified (principal)
CPT/HCPCS: 74183; A9576

== ENCOUNTER → 2022-07-01 | Outpatient (CLI) | payer MEDICARE, MEDICAID ==
[~2022-07-01] MED LIST changes: +MONT-5 PO; -PROHANCE 279.3MG/ML 15ML VIAL ONE; -SING10TA32 PO
[2022-07-01 15:31] LABS: BASO % 0.5 % (0.0-1.0); EOS # 0.3 10^3/uL (0.0-0.5); EOS % 3.9 % (0.0-3.0); HEMATOCRIT 32.2 % (42.0-52.0); HEMOGLOBIN 9.7 g/dl (13.5-17.5); LYMPH # 1.2 10^3/uL (1.5-5.0); LYMPH % 15.1 % (24.0-44.0); MEAN CORPUSCULAR HEMOGLOBIN 31.1 pg (27.0-33.0); MEAN CORPUSCULAR HGB CONC 30.1 g/dl (32.0-36.5); MEAN CORPUSCULAR VOLUME 103.2 fl (80.0-96.0); MONO # 0.7 10^3/uL (0.0-0.8); MONO % 8.9 % (2.0-8.0); NEUTROPHILS # 5.4 10^3/uL (1.5-8.5); NEUTROPHILS % 71.3 % (36.0-66.0); PLATELET COUNT, AUTOMATED 188 10^3/uL (150-450); RED BLOOD COUNT 3.12 10^6/uL (4.30-6.10); WHITE BLOOD COUNT 7.6 10^3/uL (4.0-10.0)
[2022-07-01 16:07] LABS: URIC ACID 5.8 MG/DL (3.7-9.2)
[2022-07-01 16:18] LABS: ALKALINE PHOSPHATASE 76 U/L (46-116); ALT/SGPT 12 U/L (7.0-40); AST/SGOT 16 U/L (<34); BILIRUBIN,TOTAL 0.4 MG/DL (0.3-1.2); BLOOD UREA NITROGEN 12 MG/DL (9-23); CALCIUM LEVEL 10.1 MG/DL (8.3-10.6); CARBON DIOXIDE LEVEL 29 MMOL/L (20-31); CHLORIDE LEVEL 106 MMOL/L (98-107); CREATININE FOR GFR 1.07 MG/DL (0.70-1.30); GLOMERULAR FILTRATION RATE > 60.0 (>49); GLUCOSE, FASTING 82 MG/DL (74-106); POTASSIUM SERUM 4.4 MMOL/L (3.5-5.1); PTH INTACT 124.9 PG/ML (18.5-88.0); SODIUM LEVEL 141 MMOL/L (136-145); TOTAL PROTEIN 7.4 G/DL (5.7-8.2)
== END ==
LOC: M PLALAB 13:41
PROVIDERS: ATTEND Family Medicine
DX: K75.0 Abscess of liver (principal); I10 Essential (primary) hypertension; E21.3 Hyperparathyroidism, unspecified

== ENCOUNTER → 2022-07-16 | Outpatient (CLI) | payer MEDICARE, MEDICAID ==
[2022-07-16 17:20] LABS: BASO % 0.6 % (0.0-1.0); EOS # 0.3 10^3/uL (0.0-0.5); EOS % 3.9 % (0.0-3.0); HEMATOCRIT 30.9 % (42.0-52.0); HEMOGLOBIN 9.4 g/dl (13.5-17.5); LYMPH # 1.4 10^3/uL (1.5-5.0); LYMPH % 19.9 % (24.0-44.0); MEAN CORPUSCULAR HEMOGLOBIN 31.4 pg (27.0-33.0); MEAN CORPUSCULAR HGB CONC 30.4 g/dl (32.0-36.5); MEAN CORPUSCULAR VOLUME 103.3 fl (80.0-96.0); MONO # 0.7 10^3/uL (0.0-0.8); MONO % 10.4 % (2.0-8.0); NEUTROPHILS # 4.4 10^3/uL (1.5-8.5); NEUTROPHILS % 64.8 % (36.0-66.0); PLATELET COUNT, AUTOMATED 200 10^3/uL (150-450); RED BLOOD COUNT 2.99 10^6/uL (4.30-6.10); WHITE BLOOD COUNT 6.8 10^3/uL (4.0-10.0)
[2022-07-16 17:39] LABS: FERRITIN 241.1 NG/ML (10.5-307.3)
[2022-07-20 16:10] LABS: ERYTHROPOIETIN 13.8 mIU/mL (2.6-18.5); IMMUNOTYPING SERUM IGA SO 527 mg/dL (61-437); IMMUNOTYPING SERUM IGM SO 72 mg/dL (20-172); SOLUBLE TRANSFERRIN RECEPTOR 16.4 nmol/L (12.2-27.3)
== END ==
LOC: M PLALAB 14:55
PROVIDERS: ATTEND Family Medicine
DX: D75.89 Other specified diseases of blood and blood-forming organs (principal)

== ENCOUNTER → 2022-08-31 | Outpatient (CLI) | payer MEDICARE, MEDICAID ==
[2022-08-31 14:53] LABS: CREATININE FOR GFR 1.31 MG/DL (0.70-1.30); GLOMERULAR FILTRATION RATE 57.8 (>49)
== END ==
LOC: M LAB 13:55
PROVIDERS: ATTEND Surgery
DX: Z01.818 Encounter for other preprocedural examination (principal); Z79.899 Other long term (current) drug therapy

== ENCOUNTER → 2022-09-13 | Outpatient (CLI) | payer MEDICARE, MEDICAID ==
[2022-09-13 18:20] LABS: BASO % 0.5 % (0.0-1.0); EOS # 0.2 10^3/uL (0.0-0.5); EOS % 2.7 % (0.0-3.0); HEMATOCRIT 34.6 % (42.0-52.0); HEMOGLOBIN 10.6 g/dl (13.5-17.5); LYMPH # 1.6 10^3/uL (1.5-5.0); LYMPH % 17.7 % (24.0-44.0); MEAN CORPUSCULAR HEMOGLOBIN 30.5 pg (27.0-33.0); MEAN CORPUSCULAR HGB CONC 30.6 g/dl (32.0-36.5); MEAN CORPUSCULAR VOLUME 99.4 fl (80.0-96.0); MONO # 0.8 10^3/uL (0.0-0.8); MONO % 9.5 % (2.0-8.0); NEUTROPHILS # 6.1 10^3/uL (1.5-8.5); NEUTROPHILS % 69.1 % (36.0-66.0); PLATELET COUNT, AUTOMATED 295 10^3/uL (150-450); RED BLOOD COUNT 3.48 10^6/uL (4.30-6.10); WHITE BLOOD COUNT 8.8 10^3/uL (4.0-10.0)
[2022-09-13 18:49] LABS: IRON (FE) 17 UG/DL (65-175)
[2022-09-13 18:50] LABS: PERCENT SATURATION 6.2 % (19.7-50.0); TOTAL IRON BINDING CAPACITY 274 UG/DL (250-425)
[2022-09-13 18:51] LABS: ALBUMIN 2.9 G/DL (3.2-5.2); ALKALINE PHOSPHATASE 102 U/L (46-116); ALT/SGPT 15 U/L (7.0-40); AST/SGOT 16 U/L (<34); BILIRUBIN,TOTAL 0.3 MG/DL (0.3-1.2); BLOOD UREA NITROGEN 14 MG/DL (9-23); CALCIUM LEVEL 9.6 MG/DL (8.3-10.6); CARBON DIOXIDE LEVEL 29 MMOL/L (20-31); CHLORIDE LEVEL 102 MMOL/L (98-107); CREATININE FOR GFR 1.04 MG/DL (0.70-1.30); FERRITIN 364.4 NG/ML (10.5-307.3); GLOMERULAR FILTRATION RATE > 60.0 (>49); GLUCOSE, FASTING 89 MG/DL (74-106); POTASSIUM SERUM 4.5 MMOL/L (3.5-5.1); SODIUM LEVEL 136 MMOL/L (136-145); TOTAL PROTEIN 8.3 G/DL (5.7-8.2); VITAMIN B12 LEVEL 391 PG/ML (211-911)
[2022-09-13 19:28] LABS: HEMATOCRIT 34.6 % (42.0-52.0)
== END ==
LOC: M PLALAB 14:36
PROVIDERS: ATTEND Family Medicine
DX: N18.30 Chronic kidney disease, stage 3 unspecified (principal); D63.8 Anemia in other chronic diseases classified elsewhere

== ENCOUNTER 2022-11-17 09:29 | Emergency (ER) | payer OTHER, MEDICAID ==
[~2022-11-17] VITALS: Ht 160 cm; Wt 77.3 kg
[~2022-11-17 09:29] MED LIST changes: +DICL100G10 TOP; -DICL1GEL3 TOP
[2022-11-17] MEDS ORDERED: ASPIRIN 81MG CHEW TABLET PO ONE (09:50)
[2022-11-17] MEDS: NITROGLYCERIN 0.4MG SUBL TABLET SL PRN ×3 (09:56→10:36)
[2022-11-17 10:10] LABS: BASO % 0.3 % (0.0-1.0); EOS # 0.3 10^3/uL (0.0-0.5); EOS % 2.7 % (0.0-3.0); HEMATOCRIT 27.3 % (42.0-52.0); HEMOGLOBIN 8.4 g/dl (13.5-17.5); LYMPH # 1.1 10^3/uL (1.5-5.0); LYMPH % 10.9 % (24.0-44.0); MEAN CORPUSCULAR HEMOGLOBIN 29.8 pg (27.0-33.0); MEAN CORPUSCULAR HGB CONC 30.8 g/dl (32.0-36.5); MEAN CORPUSCULAR VOLUME 96.8 fl (80.0-96.0); MONO # 0.8 10^3/uL (0.0-0.8); MONO % 8.3 % (2.0-8.0); NEUTROPHILS # 7.7 10^3/uL (1.5-8.5); NEUTROPHILS % 77.5 % (36.0-66.0); PLATELET COUNT, AUTOMATED 218 10^3/uL (150-450); RED BLOOD COUNT 2.82 10^6/uL (4.30-6.10); WHITE BLOOD COUNT 9.9 10^3/uL (4.0-10.0)
[2022-11-17 10:20] LABS: INR 0.99; PROTHROMBIN TIME 13.3 SECONDS (12.5-14.5)
[2022-11-17 10:36] VITALS: BP 126/61
[2022-11-17 10:38] LABS: CK-MB VALUE MASS 1.6 NG/ML (<3.6)
[2022-11-17 10:40] LABS: LIPASE 50 U/L (12-53)
[2022-11-17 10:42] LABS: ALBUMIN 2.2 G/DL (3.2-5.2); ALKALINE PHOSPHATASE 85 U/L (46-116); ALT/SGPT < 9 U/L (7.0-40); AST/SGOT 9 U/L (<34); BILIRUBIN,DIRECT 0.1 MG/DL (<0.4); BILIRUBIN,TOTAL 0.2 MG/DL (0.3-1.2); BLOOD UREA NITROGEN 18 MG/DL (9-23); CALCIUM LEVEL 9.4 MG/DL (8.3-10.6); CARBON DIOXIDE LEVEL 26 MMOL/L (20-31); CHLORIDE LEVEL 105 MMOL/L (98-107); CPK CREATINE PHOSPHOKINASE 86 U/L (46-171); CREATININE FOR GFR 1.11 MG/DL (0.70-1.30); GLOMERULAR FILTRATION RATE > 60.0 (>49); GLUCOSE, FASTING 138 MG/DL (74-106); MB/CK RELATIVE INDEX 1.86 (< OR =4); POTASSIUM SERUM 3.8 MMOL/L (3.5-5.1); SODIUM LEVEL 138 MMOL/L (136-145)
[2022-11-17 10:44] LABS: THYROID STIMULATING HORMONE 2.775 uIU/ML (0.55-4.78)
[2022-11-17] MEDS ORDERED: ISOVUE-370 76% 100ML VIAL As Ordered ONE (11:24)
[2022-11-17 11:43] LABS: CK-MB VALUE MASS 1.5 NG/ML (<3.6)
[2022-11-17 11:46] LABS: MB/CK RELATIVE INDEX 1.74 (< OR =4)
[2022-11-17 14:06] LABS: CK-MB VALUE MASS < 1.0 NG/ML (<3.6)
[2022-11-17 14:07] LABS: CPK CREATINE PHOSPHOKINASE 81 U/L (46-171); MB/CK RELATIVE INDEX 1.23 (< OR =4)
[2022-11-17] MEDS ORDERED: AMOX875T2 PO (15:29)
[2022-11-17 17:30] VITALS: TEMP 98.9
[2022-11-17 19:45] VITALS: BP 155/78; O2SAT 95
[2022-11-17] MEDS ORDERED: PROHANCE 279.3MG/ML 5ML VIAL ONE (20:03)
[2022-11-17] MEDS ORDERED: PROHANCE 279.3MG/ML 15ML VIAL ONE (20:03)
== END 2022-11-17 23:13 | disposition home or self-care (01) ==
LOC: EDBD 09:29 → M ED 09:29
DX: R07.81 Pleurodynia (principal); K75.0 Abscess of liver; R91.1 Solitary pulmonary nodule; I25.2 Old myocardial infarction; E78.5 Hyperlipidemia, unspecified; K21.9 Gastro-esophageal reflux disease without esophagitis; J44.9 Chronic obstructive pulmonary disease, unspecified; F32.A Depression, unspecified; N18.9 Chronic kidney disease, unspecified; G47.33 Obstructive sleep apnea (adult) (pediatric); Z88.6 Allergy status to analgesic agent; Z91.013 Allergy to seafood; Z79.52 Long term (current) use of systemic steroids; Z79.02 Long term (current) use of antithrombotics/antiplatelets; Z79.83 Long term (current) use of bisphosphonates; Z79.899 Other long term (current) drug therapy
CPT/HCPCS: 36415; 71045; 71275; 74183; 80048; 80076; 82550; 82553; 83690; 84443; 84484; 85025; 85610; 93005; 93041; 94760; 99285; A9576; Q9967

== ENCOUNTER → 2022-11-26 | Outpatient (CLI) | payer OTHER, MEDICAID ==
[2022-11-26 15:24] LABS: BASO % 0.5 % (0.0-1.0); EOS # 0.4 10^3/uL (0.0-0.5); EOS % 4.2 % (0.0-3.0); HEMATOCRIT 30.1 % (42.0-52.0); HEMOGLOBIN 9.1 g/dl (13.5-17.5); LYMPH # 1.1 10^3/uL (1.5-5.0); MEAN CORPUSCULAR HEMOGLOBIN 29.1 pg (27.0-33.0); MEAN CORPUSCULAR HGB CONC 30.2 g/dl (32.0-36.5); MEAN CORPUSCULAR VOLUME 96.2 fl (80.0-96.0); MONO # 0.7 10^3/uL (0.0-0.8); MONO % 8.8 % (2.0-8.0); NEUTROPHILS # 6.1 10^3/uL (1.5-8.5); NEUTROPHILS % 73.3 % (36.0-66.0); PLATELET COUNT, AUTOMATED 249 10^3/uL (150-450); RED BLOOD COUNT 3.13 10^6/uL (4.30-6.10); WHITE BLOOD COUNT 8.3 10^3/uL (4.0-10.0)
[2022-11-26 15:31] LABS: ERYTHROCYTE SEDIMENTATION RATE 95 mm/hr (0-20)
[2022-11-26 16:02] LABS: LIPASE 41 U/L (12-53)
[2022-11-26 16:04] LABS: ALBUMIN 2.3 G/DL (3.2-5.2); ALKALINE PHOSPHATASE 93 U/L (46-116); ALT/SGPT < 9 U/L (7.0-40); AST/SGOT 20 U/L (<34); BILIRUBIN,TOTAL 0.3 MG/DL (0.3-1.2); BLOOD UREA NITROGEN 15 MG/DL (9-23); CALCIUM LEVEL 9.7 MG/DL (8.3-10.6); CARBON DIOXIDE LEVEL 27 MMOL/L (20-31); CHLORIDE LEVEL 103 MMOL/L (98-107); CREATININE FOR GFR 1.24 MG/DL (0.70-1.30); GLOMERULAR FILTRATION RATE > 60.0 (>49); GLUCOSE, FASTING 105 MG/DL (74-106); IRON (FE) 19 UG/DL (65-175); PERCENT SATURATION 8.5 % (19.7-50.0); POTASSIUM SERUM 4.3 MMOL/L (3.5-5.1); SODIUM LEVEL 136 MMOL/L (136-145); TOTAL IRON BINDING CAPACITY 223 UG/DL (250-425); TOTAL PROTEIN 8.4 G/DL (5.7-8.2)
== END ==
LOC: M LAB 14:59
PROVIDERS: ATTEND Family Medicine
DX: D64.9 Anemia, unspecified (principal)

== ENCOUNTER 2022-12-02 10:13 | Outpatient (CLI) | payer OTHER, MEDICAID ==
[~2022-12-02] VITALS: Ht 160 cm; Wt 78.0 kg
[~2022-12-02 10:13] MED LIST changes: +ALBUTEROL SULFATE 2.5MG/0.5ML INH NEB SOLN INH PRN; +EPINEPHrine INJ 1 MG/ML 1ML AMP IM PRN; +diphenhydrAMINE 50MG/ML VIAL IV PRN; +methylPREDNISolone 125MG 2ML VIAL IV PRN
[2022-12-02] MEDS ORDERED: NS 1,000 ML IV SCH (10:50)
[2022-12-02] MEDS ORDERED: IRON SUCROSE 500 MG in NS 250 ML OVER 4 HRS IV ONE (11:00)
[2022-12-02 11:10] VITALS: BP 130/63; O2SAT 96
[2022-12-02 13:00] VITALS: BP 114/59; O2SAT 95
[2022-12-02 14:00] VITALS: BP 107/59; O2SAT 96
[2022-12-02 16:10] VITALS: BP 113/57; O2SAT 97
== END 2022-12-02 16:15 ==
LOC: M INFU 10:13
PROVIDERS: ATTEND Family Medicine
DX: D50.9 Iron deficiency anemia, unspecified (principal); Z88.6 Allergy status to analgesic agent; Z91.013 Allergy to seafood
CPT/HCPCS: 96365; 96366; J1756

== ENCOUNTER → 2022-12-14 | Outpatient (REF) | payer OTHER, MEDICAID ==
[~2022-12-14] MED LIST changes: -ALBUTEROL SULFATE 2.5MG/0.5ML INH NEB SOLN INH PRN; -EPINEPHrine INJ 1 MG/ML 1ML AMP IM PRN; +LORA-1041 PO; -LORA-674 PO; -diphenhydrAMINE 50MG/ML VIAL IV PRN; -methylPREDNISolone 125MG 2ML VIAL IV PRN
== END ==
LOC: M SFHCPLAZ 13:54
PROVIDERS: ATTEND Family Medicine
DX: Z53.9 Procedure and treatment not carried out, unspecified reason (principal); D63.8 Anemia in other chronic diseases classified elsewhere

== ENCOUNTER 2022-12-24 09:30 | Outpatient (CLI) | payer OTHER, MEDICAID ==
[~2022-12-24] VITALS: Ht 160 cm; Wt 72.2 kg
[2022-12-24 09:30] VITALS: BP 136/68; O2SAT 95
[~2022-12-24 09:30] MED LIST changes: +ALBUTEROL SULFATE 2.5MG/0.5ML INH NEB SOLN INH PRN; +EPINEPHrine INJ 1 MG/ML 1ML AMP IM PRN; +diphenhydrAMINE 50MG/ML VIAL IV PRN; +methylPREDNISolone 125MG 2ML VIAL IV PRN
[2022-12-24] MEDS ORDERED: NS 1,000 ML IV SCH (10:00)
[2022-12-24] MEDS ORDERED: IRON SUCROSE 500 MG in NS 250 ML OVER 4 HRS IV ONE (10:00)
[2022-12-24 11:30] VITALS: BP 129/64; O2SAT 100
[2022-12-24 12:30] VITALS: BP 133/63; O2SAT 97
[2022-12-24 14:45] VITALS: BP 126/64; O2SAT 98
== END 2022-12-24 14:45 | disposition home or self-care (01) ==
LOC: M INFU 09:30
PROVIDERS: ATTEND Family Medicine
DX: D50.9 Iron deficiency anemia, unspecified (principal); Z88.6 Allergy status to analgesic agent; Z91.013 Allergy to seafood
CPT/HCPCS: 96365; 96366; J1756

== ENCOUNTER → 2022-12-28 | Outpatient (CLI) | payer OTHER, MEDICAID ==
[~2022-12-28] MED LIST changes: -ALBUTEROL SULFATE 2.5MG/0.5ML INH NEB SOLN INH PRN; -EPINEPHrine INJ 1 MG/ML 1ML AMP IM PRN; +LIDOCAINE 1% MDV 20ML VIAL As Ordered ONE; -diphenhydrAMINE 50MG/ML VIAL IV PRN; -methylPREDNISolone 125MG 2ML VIAL IV PRN
[2022-12-28 16:30] VITALS: BP 140/78; O2SAT 96
== END ==
LOC: M IRPRO 12:47
PROVIDERS: ATTEND Surgery
DX: K75.0 Abscess of liver (principal)

== ENCOUNTER → 2023-02-08 | Outpatient (CLI) | payer OTHER, MEDICAID ==
[~2023-02-08] MED LIST changes: -LIDOCAINE 1% MDV 20ML VIAL As Ordered ONE
[2023-02-08 11:50] LABS: BASO % 0.7 % (0.0-1.0); EOS # 0.8 10^3/uL (0.0-0.5); EOS % 14.9 % (0.0-3.0); HEMATOCRIT 39.7 % (42.0-52.0); HEMOGLOBIN 12.6 g/dl (13.5-17.5); LYMPH # 1.2 10^3/uL (1.5-5.0); LYMPH % 20.8 % (24.0-44.0); MEAN CORPUSCULAR HEMOGLOBIN 31.9 pg (27.0-33.0); MEAN CORPUSCULAR HGB CONC 31.7 g/dl (32.0-36.5); MEAN CORPUSCULAR VOLUME 100.5 fl (80.0-96.0); MONO # 0.6 10^3/uL (0.0-0.8); NEUTROPHILS % 53.4 % (36.0-66.0); PLATELET COUNT, AUTOMATED 145 10^3/uL (150-450); RED BLOOD COUNT 3.95 10^6/uL (4.30-6.10); WHITE BLOOD COUNT 5.5 10^3/uL (4.0-10.0)
[2023-02-08 12:04] LABS: ERYTHROCYTE SEDIMENTATION RATE 69 mm/hr (0-20)
[2023-02-08 12:14] LABS: C REACTIVE PROTEIN QUANTITATIV < 0.40 MG/DL (<1.0)
[2023-02-08 12:16] LABS: ALBUMIN 3.6 G/DL (3.2-5.2); ALKALINE PHOSPHATASE 82 U/L (46-116); ALT/SGPT 15 U/L (7.0-40); AST/SGOT 22 U/L (<34); BILIRUBIN,TOTAL 0.6 MG/DL (0.3-1.2); BLOOD UREA NITROGEN 17 MG/DL (9-23); CALCIUM LEVEL 10.1 MG/DL (8.3-10.6); CARBON DIOXIDE LEVEL 28 MMOL/L (20-31); CHLORIDE LEVEL 103 MMOL/L (98-107); CREATININE FOR GFR 1.08 MG/DL (0.70-1.30); GLOMERULAR FILTRATION RATE > 60.0 (>49); GLUCOSE, FASTING 93 MG/DL (74-106); POTASSIUM SERUM 4.1 MMOL/L (3.5-5.1); SODIUM LEVEL 138 MMOL/L (136-145); TOTAL PROTEIN 7.9 G/DL (5.7-8.2)
== END ==
LOC: M RAD 10:44
PROVIDERS: ATTEND Internal Medicine Infectious Disease
DX: K75.0 Abscess of liver (principal)

== ENCOUNTER 2023-08-15 14:45 | Emergency (ER) | payer OTHER, MEDICAID ==
[~2023-08-15] VITALS: Ht 162.6 cm; Wt 69.9 kg
[2023-08-15 20:16] LABS: BASO % 0.4 % (0.0-1.0); EOS # 0.6 10^3/uL (0.0-0.5); EOS % 5.6 % (0.0-3.0); HEMATOCRIT 37.5 % (42.0-52.0); HEMOGLOBIN 12.4 g/dl (13.5-17.5); LYMPH # 1.7 10^3/uL (1.5-5.0); MEAN CORPUSCULAR HEMOGLOBIN 33.2 pg (27.0-33.0); MEAN CORPUSCULAR HGB CONC 33.1 g/dl (32.0-36.5); MEAN CORPUSCULAR VOLUME 100.5 fl (80.0-96.0); MONO # 1.3 10^3/uL (0.0-0.8); MONO % 11.5 % (2.0-8.0); NEUTROPHILS # 7.7 10^3/uL (1.5-8.5); NEUTROPHILS % 67.1 % (36.0-66.0); PLATELET COUNT, AUTOMATED 144 10^3/uL (150-450); RED BLOOD COUNT 3.73 10^6/uL (4.30-6.10); WHITE BLOOD COUNT 11.4 10^3/uL (4.0-10.0)
[2023-08-15 20:40] LABS: LIPASE 27 U/L (12-53)
[2023-08-15 20:43] LABS: ALBUMIN 2.6 G/DL (3.2-5.2); ALKALINE PHOSPHATASE 76 U/L (46-116); ALT/SGPT 12 U/L (7.0-40); AST/SGOT 12 U/L (<34); BILIRUBIN,DIRECT 0.3 MG/DL (<0.4); BILIRUBIN,TOTAL 0.7 MG/DL (0.3-1.2); BLOOD UREA NITROGEN 14 MG/DL (9-23); CALCIUM LEVEL 9.1 MG/DL (8.3-10.6); CARBON DIOXIDE LEVEL 27 MMOL/L (20-31); CHLORIDE LEVEL 103 MMOL/L (98-107); CREATININE FOR GFR 1.09 MG/DL (0.70-1.30); GLOMERULAR FILTRATION RATE > 60.0 (>42); GLUCOSE, FASTING 86 MG/DL (74-106); POTASSIUM SERUM 4.6 MMOL/L (3.5-5.1); SODIUM LEVEL 137 MMOL/L (136-145); TOTAL PROTEIN 6.7 G/DL (5.7-8.2)
[2023-08-15] MEDS: ACETAMINOPHEN 500 MG TAB PO ONE (21:04)
[2023-08-15] MEDS ORDERED: ISOVUE-370 76% 100ML VIAL As Ordered ONE (21:34)
[2023-08-16 00:15] VITALS: BP 133/64; TEMP 98.2; O2SAT 96
[2023-08-16] MEDS: AUGMENTIN 875 MG TAB PO ONE (00:22)
[2023-08-16] MEDS ORDERED: AMOX875T2 PO (00:41)
== END 2023-08-16 00:45 | disposition home or self-care (01) ==
LOC: M ED 14:45
DX: K57.32 Diverticulitis of large intestine without perforation or abscess without bleeding (principal); E11.9 Type 2 diabetes mellitus without complications; I10 Essential (primary) hypertension; I25.2 Old myocardial infarction; K21.9 Gastro-esophageal reflux disease without esophagitis; E78.5 Hyperlipidemia, unspecified; J45.909 Unspecified asthma, uncomplicated; J44.9 Chronic obstructive pulmonary disease, unspecified; N18.9 Chronic kidney disease, unspecified; N40.0 Benign prostatic hyperplasia without lower urinary tract symptoms; Z88.6 Allergy status to analgesic agent; Z91.013 Allergy to seafood; Z79.52 Long term (current) use of systemic steroids; Z79.02 Long term (current) use of antithrombotics/antiplatelets; Z79.82 Long term (current) use of aspirin; Z79.83 Long term (current) use of bisphosphonates; Z79.899 Other long term (current) drug therapy
CPT/HCPCS: 36415; 74177; 80048; 80076; 81001; 83690; 85025; 99283; Q9967

== ENCOUNTER → 2023-11-21 | Outpatient (REF) | payer OTHER, MEDICAID | LOC: M SFHCPLAZ 18:47 | PROVIDERS: ATTEND Family Medicine | DX: N18.32 Chronic kidney disease, stage 3b (principal); M10.9 Gout, unspecified; Z12.5 Encounter for screening for malignant neoplasm of prostate; I10 Essential (primary) hypertension ==

== ENCOUNTER → 2023-11-23 | Outpatient (CLI) | payer OTHER, MEDICAID ==
[2023-11-23 09:55] LABS: BASO % 0.5 % (0.0-1.0); EOS # 0.5 10^3/uL (0.0-0.5); EOS % 6.3 % (0.0-3.0); HEMATOCRIT 38.5 % (42.0-52.0); HEMOGLOBIN 12.5 g/dl (13.5-17.5); LYMPH # 1.8 10^3/uL (1.5-5.0); LYMPH % 22.9 % (24.0-44.0); MEAN CORPUSCULAR HEMOGLOBIN 32.9 pg (27.0-33.0); MEAN CORPUSCULAR HGB CONC 32.5 g/dl (32.0-36.5); MEAN CORPUSCULAR VOLUME 101.3 fl (80.0-96.0); MONO # 0.9 10^3/uL (0.0-0.8); MONO % 11.5 % (2.0-8.0); NEUTROPHILS # 4.5 10^3/uL (1.5-8.5); NEUTROPHILS % 58.4 % (36.0-66.0); PLATELET COUNT, AUTOMATED 200 10^3/uL (150-450); WHITE BLOOD COUNT 7.7 10^3/uL (4.0-10.0)
[2023-11-23 10:27] LABS: HEMOGLOBIN A1c 5.2 % (4.0-6.0)
[2023-11-23 10:30] LABS: URIC ACID 7.2 MG/DL (3.7-9.2)
[2023-11-23 10:34] LABS: ALBUMIN 3.5 G/DL (3.2-5.2); ALKALINE PHOSPHATASE 86 U/L (46-116); ALT/SGPT 19 U/L (7.0-40); AST/SGOT 13 U/L (<34); BILIRUBIN,TOTAL 0.4 MG/DL (0.3-1.2); BLOOD UREA NITROGEN 18 MG/DL (9-23); CARBON DIOXIDE LEVEL 31 MMOL/L (20-31); CHLORIDE LEVEL 106 MMOL/L (98-107); CHOLESTEROL LEVEL 160 MG/DL (<200); CREATININE FOR GFR 1.11 MG/DL (0.70-1.30); FERRITIN 435.8 NG/ML (10.5-307.3); GLOMERULAR FILTRATION RATE > 60.0 (>42); GLUCOSE, FASTING 91 MG/DL (74-106); HDL CHOLESTEROL 51.6 MG/DL (>40); LDL CHOLESTEROL 91.2 MG/DL (<100); NON-HDL-C 108.4 MG/DL; POTASSIUM SERUM 4.3 MMOL/L (3.5-5.1); PSA SCREENING 4.19 NG/ML (< 4.00); SODIUM LEVEL 139 MMOL/L (136-145); TOTAL PROTEIN 7.5 G/DL (5.7-8.2); TRIGLYCERIDES LEVEL 86 MG/DL (<150)
== END ==
LOC: M LAB 09:07
PROVIDERS: ATTEND Family Medicine
DX: N18.32 Chronic kidney disease, stage 3b (principal); Z12.5 Encounter for screening for malignant neoplasm of prostate; I12.9 Hypertensive chronic kidney disease with stage 1 through stage 4 chronic kidney disease, or unspecified chronic kidney disease; M10.9 Gout, unspecified; Z79.899 Other long term (current) drug therapy
CPT/HCPCS: 36415; 80053; 80061; 82728; 83036; 83970; 84238; 84550; 85025; G0103

== ENCOUNTER → 2024-01-06 | Outpatient (CLI) | payer OTHER, MEDICAID | LOC: M WHC 08:07 | PROVIDERS: ATTEND Family Medicine | DX: K74.00 Hepatic fibrosis, unspecified (principal); Z90.49 Acquired absence of other specified parts of digestive tract ==

== ENCOUNTER → 2024-02-02 | Outpatient (REF) | payer OTHER, MEDICAID | LOC: M SFHCPLAZ 14:23 | DX: J06.9 Acute upper respiratory infection, unspecified (principal) ==

== ENCOUNTER → 2024-02-02 | Outpatient (CLI) | payer OTHER, MEDICAID ==
[2024-02-02 17:51] LABS: HEMATOCRIT 38.3 % (42.0-52.0); HEMOGLOBIN 12.8 g/dl (13.5-17.5); MEAN CORPUSCULAR HEMOGLOBIN 33.2 pg (27.0-33.0); MEAN CORPUSCULAR HGB CONC 33.4 g/dl (32.0-36.5); MEAN CORPUSCULAR VOLUME 99.2 fl (80.0-96.0); PLATELET COUNT, AUTOMATED 186 10^3/uL (150-450); RED BLOOD COUNT 3.86 10^6/uL (4.30-6.10); WHITE BLOOD COUNT 7.5 10^3/uL (4.0-10.0)
[2024-02-02 18:12] LABS: ALBUMIN 3.2 G/DL (3.2-5.2); BILIRUBIN,TOTAL 0.5 MG/DL (0.3-1.2); CREATININE FOR GFR 1.27 MG/DL (0.70-1.30); GLOMERULAR FILTRATION RATE 59.7 (>42); POTASSIUM SERUM 4.3 MMOL/L (3.5-5.1); TOTAL PROTEIN 7.3 G/DL (5.7-8.2)
== END ==
LOC: M PLAIMG 14:21
DX: J06.9 Acute upper respiratory infection, unspecified (principal); R05.1 Acute cough

== ENCOUNTER 2024-02-17 14:24 | Outpatient (CLI) | payer OTHER, MEDICAID ==
[~2024-02-17] VITALS: Ht 162.6 cm; Wt 75.4 kg
[2024-02-17] MEDS: ZOLEDRONIC ACID 5 MG in IV 1 EA IV ONE (15:31)
[2024-02-17 16:42] VITALS: BP 123/62; O2SAT 99
== END 2024-02-17 16:05 ==
LOC: M INFU 14:24
PROVIDERS: ATTEND Family Medicine
DX: M81.0 Age-related osteoporosis without current pathological fracture (principal); Z88.6 Allergy status to analgesic agent; Z91.013 Allergy to seafood
CPT/HCPCS: 96365; J3489

== ENCOUNTER 2024-03-06 13:37 | Emergency (ER) | payer OTHER, MEDICAID ==
[~2024-03-06] VITALS: Ht 162.6 cm; Wt 75.9 kg
[2024-03-06 13:41] VITALS: TEMP 98.5
[2024-03-06] MEDS ORDERED: BACL1TAB9 PO (15:41)
[2024-03-06] MEDS ORDERED: TRIAMCINOLONE ACETONIDE SUSP 40MG/ML 1ML VIAL IM ONE (15:45)
[2024-03-06] MEDS: BACLOFEN 10 MG TAB PO ONE (15:58)
[2024-03-06] MEDS: methylPREDNISolone 125MG 2ML VIAL IM ONE (16:19)
[2024-03-06 16:33] VITALS: BP 160/82; O2SAT 99
== END 2024-03-06 16:30 | disposition home or self-care (01) ==
LOC: M ED 13:37
DX: S19.9XXA Unspecified injury of neck, initial encounter (principal); M54.2 Cervicalgia; X50.0XXA Overexertion from strenuous movement or load, initial encounter; M47.892 Other spondylosis, cervical region; E11.9 Type 2 diabetes mellitus without complications; I10 Essential (primary) hypertension; J44.9 Chronic obstructive pulmonary disease, unspecified; Z87.891 Personal history of nicotine dependence; Z88.6 Allergy status to analgesic agent; Z91.013 Allergy to seafood; Y92.9 Unspecified place or not applicable; Y93.89 Activity, other specified; Y99.9 Unspecified external cause status; Z79.52 Long term (current) use of systemic steroids; Z79.2 Long term (current) use of antibiotics; Z79.83 Long term (current) use of bisphosphonates; Z79.899 Other long term (current) drug therapy
CPT/HCPCS: 72040; 96372; 99283; J2919

== ENCOUNTER → 2024-05-22 | Outpatient (REF) | payer MEDICARE ==
[~2024-05-22] MED LIST changes: -ADV500INH; -ADV500INH INH; +ADVA1AER10; +ADVA1AER10 INH; +BACL1TAB9 PO
== END ==
LOC: M SFHCPLAZ 17:04
DX: J06.9 Acute upper respiratory infection, unspecified (principal)

== ENCOUNTER → 2024-07-06 | Outpatient (CLI) | payer MEDICARE, MEDICAID ==
[2024-07-06 15:21] LABS: INR 0.99; PARTIAL THROMBOPLASTIN TIME 31.8 SECONDS (24.8-34.2); PROTHROMBIN TIME 13.4 SECONDS (12.5-14.5)
[2024-07-06 15:57] LABS: URIC ACID 7.6 MG/DL (3.7-9.2)
[2024-07-06 15:58] LABS: BASO # 0.1 10^3/uL (0.0-0.2); EOS # 0.7 10^3/uL (0.0-0.5); EOS % 15.3 % (0.0-3.0); HEMATOCRIT 37.7 % (42.0-52.0); HEMOGLOBIN 11.8 g/dl (13.5-17.5); LYMPH # 1.6 10^3/uL (1.5-5.0); MEAN CORPUSCULAR HEMOGLOBIN 32.1 pg (27.0-33.0); MEAN CORPUSCULAR HGB CONC 31.3 g/dl (32.0-36.5); MEAN CORPUSCULAR VOLUME 102.4 fl (80.0-96.0); MONO # 0.5 10^3/uL (0.0-0.8); MONO % 11.1 % (2.0-8.0); NEUTROPHILS # 1.9 10^3/uL (1.5-8.5); NEUTROPHILS % 39.6 % (36.0-66.0); PLATELET COUNT, AUTOMATED 143 10^3/uL (150-450); RED BLOOD COUNT 3.68 10^6/uL (4.30-6.10); WHITE BLOOD COUNT 4.9 10^3/uL (4.0-10.0)
[2024-07-06 16:00] LABS: ALBUMIN 3.4 G/DL (3.2-5.2); ALKALINE PHOSPHATASE 61 U/L (40-129); ALT/SGPT 11 U/L (7.0-40); AST/SGOT 12 U/L (<34); BILIRUBIN,TOTAL 0.5 MG/DL (0.3-1.2); BLOOD UREA NITROGEN 18 MG/DL (9-23); CALCIUM LEVEL 9.4 MG/DL (8.3-10.6); CARBON DIOXIDE LEVEL 29 MMOL/L (20-31); CHLORIDE LEVEL 105 MMOL/L (98-107); CREATININE FOR GFR 0.98 MG/DL (0.70-1.30); FREE T4 0.99 NG/DL (0.89-1.76); GLOMERULAR FILTRATION RATE > 60.0 (>42); GLUCOSE, FASTING 83 MG/DL (74-106); IRON (FE) 117 UG/DL (65-175); PERCENT SATURATION 40.8 % (19.7-50.0); POTASSIUM SERUM 4.2 MMOL/L (3.5-5.1); PSA SCREENING 3.39 NG/ML (< 4.00); PTH INTACT 174.9 PG/ML (18.5-88.0); SODIUM LEVEL 142 MMOL/L (136-145); TOTAL IRON BINDING CAPACITY 287 UG/DL (250-425); TOTAL PROTEIN 6.9 G/DL (5.7-8.2)
[2024-07-06 16:01] LABS: FERRITIN 402.5 NG/ML (10.5-307.3); THYROID STIMULATING HORMONE 5.966 uIU/ML (0.55-4.78)
[2024-07-06 16:02] LABS: VITAMIN B12 LEVEL 274 PG/ML (211-911)
[2024-07-06 16:12] LABS: HEMATOCRIT 37.1 % (42.0-52.0)
[2024-07-06 16:56] LABS: HEMOGLOBIN A1c 5.4 % (4.0-6.0)
== END ==
LOC: M PLALAB 12:11
PROVIDERS: ATTEND Family Medicine
DX: I12.9 Hypertensive chronic kidney disease with stage 1 through stage 4 chronic kidney disease, or unspecified chronic kidney disease (principal); D63.8 Anemia in other chronic diseases classified elsewhere; R73.01 Impaired fasting glucose; Z12.5 Encounter for screening for malignant neoplasm of prostate; E21.3 Hyperparathyroidism, unspecified; M10.9 Gout, unspecified; N18.31 Chronic kidney disease, stage 3a; K74.00 Hepatic fibrosis, unspecified
CPT/HCPCS: 36415; 80053; 82607; 82728; 82747; 83036; 83550; 83880; 83970; 84439; 84443; 84550; 85025; 85610; 85730; G0103

== ENCOUNTER → 2024-10-08 | Outpatient (CLI) | payer MEDICARE, MEDICAID ==
[~2024-10-08] MED LIST changes: -FLOM0.4C39 PO; +TAMS-18 PO
[2024-10-08 18:26] LABS: BASO % 0.4 % (0.0-1.0); EOS # 0.6 10^3/uL (0.0-0.5); HEMATOCRIT 43.3 % (42.0-52.0); HEMOGLOBIN 13.7 g/dl (13.5-17.5); LYMPH # 1.7 10^3/uL (1.5-5.0); LYMPH % 24.8 % (24.0-44.0); MEAN CORPUSCULAR HEMOGLOBIN 32.4 pg (27.0-33.0); MEAN CORPUSCULAR HGB CONC 31.6 g/dl (32.0-36.5); MEAN CORPUSCULAR VOLUME 102.4 fl (80.0-96.0); MONO # 0.5 10^3/uL (0.0-0.8); MONO % 8.1 % (2.0-8.0); NEUTROPHILS # 3.9 10^3/uL (1.5-8.5); NEUTROPHILS % 57.6 % (36.0-66.0); PLATELET COUNT, AUTOMATED 174 10^3/uL (150-450); RED BLOOD COUNT 4.23 10^6/uL (4.30-6.10); WHITE BLOOD COUNT 6.7 10^3/uL (4.0-10.0)
[2024-10-08 18:47] LABS: HEMOGLOBIN A1c 5.2 % (4.0-6.0)
[2024-10-08 18:49] LABS: URIC ACID 8.5 MG/DL (3.7-9.2)
[2024-10-08 18:52] LABS: PERCENT SATURATION 20.7 % (19.7-50.0)
[2024-10-08 18:53] LABS: ALBUMIN 3.7 G/DL (3.2-5.2); BILIRUBIN,TOTAL 0.6 MG/DL (0.3-1.2); CALCIUM LEVEL 10.4 MG/DL (8.3-10.6); CREATININE FOR GFR 1.09 MG/DL (0.70-1.30); GLOMERULAR FILTRATION RATE 72.6 (>42); LDL CHOLESTEROL 100.2 MG/DL (<100); POTASSIUM SERUM 4.8 MMOL/L (3.5-5.1); TOTAL PROTEIN 7.5 G/DL (5.7-8.2)
[2024-10-08 18:54] LABS: PTH INTACT 185.4 PG/ML (18.5-88.0); THYROID STIMULATING HORMONE 7.057 uIU/ML (0.55-4.78)
[2024-10-08 18:55] LABS: FERRITIN 449.2 NG/ML (10.5-307.3); FREE T4 0.97 NG/DL (0.89-1.76)
== END ==
LOC: M PLALAB 15:50
PROVIDERS: ATTEND Family Medicine
DX: I10 Essential (primary) hypertension (principal); E03.9 Hypothyroidism, unspecified; D63.8 Anemia in other chronic diseases classified elsewhere; R73.01 Impaired fasting glucose; E21.3 Hyperparathyroidism, unspecified; E53.8 Deficiency of other specified B group vitamins; M10.9 Gout, unspecified

== ENCOUNTER → 2024-10-30 | Outpatient (CLI) | payer MEDICARE, MEDICAID | LOC: M WHC 11:43 | PROVIDERS: ATTEND Family Medicine | DX: Z13.820 Encounter for screening for osteoporosis (principal); M85.851 Other specified disorders of bone density and structure, right thigh; M85.852 Other specified disorders of bone density and structure, left thigh ==

== ENCOUNTER → 2025-01-25 | Outpatient (CLI) | payer MEDICARE, MEDICAID ==
[2025-01-25 17:49] LABS: ESTIMATED AVERAGE GLUCOSE 114.0 MG/DL (60-110)
[2025-01-25 17:56] LABS: BASO # 0.0 10^3/uL (0.0-0.2); BASO % 0.7 % (0.0-1.0); EOS # 0.8 10^3/uL (0.0-0.5); EOS % 14.2 % (0.0-3.0); LYMPH # 1.7 10^3/uL (1.5-5.0); LYMPH % 28.0 % (24.0-44.0); MONO # 0.6 10^3/uL (0.0-0.8); MONO % 9.3 % (2.0-8.0); NEUTROPHILS # 2.8 10^3/uL (1.5-8.5); NEUTROPHILS % 47.6 % (36.0-66.0); PLATELET COUNT, AUTOMATED 199 10^3/uL (150-450)
[2025-01-25 18:06] LABS: ALT/SGPT 12.0 U/L (7.0-40); AST/SGOT 13.0 U/L (<34); CALCIUM LEVEL 10.1 MG/DL (8.3-10.6); CARBON DIOXIDE LEVEL 31.0 MMOL/L (20-31); CHLORIDE LEVEL 105.0 MMOL/L (98-107); CREATININE FOR GFR 1.18 MG/DL (0.70-1.30); GLOMERULAR FILTRATION RATE 66.0 (>42); IRON (FE) 47.0 UG/DL (65-175); PERCENT SATURATION 16.8 % (19.7-50.0); POTASSIUM SERUM 4.4 MMOL/L (3.5-5.1); PTH INTACT 212.6 PG/ML (18.5-88.0); SODIUM LEVEL 145.0 MMOL/L (136-145)
[2025-01-25 18:09] LABS: FREE T4 0.99 NG/DL (0.89-1.76)
== END ==
LOC: M PLALAB 16:31
PROVIDERS: ATTEND Family Medicine
DX: I10 Essential (primary) hypertension (principal); R73.01 Impaired fasting glucose; M10.9 Gout, unspecified; D63.8 Anemia in other chronic diseases classified elsewhere; E21.3 Hyperparathyroidism, unspecified; E53.8 Deficiency of other specified B group vitamins

== ENCOUNTER 2025-02-05 06:56 | Day surgery (SDC) | payer MEDICARE, MEDICAID ==
[~2025-02-05] VITALS: Ht 162.6 cm; Wt 67.1 kg
[2025-02-05] MEDS ORDERED: LIDOCAINE 2% 100 MG/5 ML SDV (FOR ANES.) As Ordered ONE (08:10)
[2025-02-05 08:47] VITALS: TEMP 99
[2025-02-05 09:12] VITALS: BP 145/88; O2SAT 95
== END 2025-02-05 09:30 | disposition home or self-care (01) ==
LOC: M OPP 06:56
PROVIDERS: ATTEND Internal Medicine Gastroenterology
DX: Z12.11 Encounter for screening for malignant neoplasm of colon (principal); D12.4 Benign neoplasm of descending colon; K57.30 Diverticulosis of large intestine without perforation or abscess without bleeding; K64.8 Other hemorrhoids; Z86.0100 Personal history of colon polyps, unspecified; G47.30 Sleep apnea, unspecified; Z86.73 Personal history of transient ischemic attack (TIA), and cerebral infarction without residual deficits; Z88.6 Allergy status to analgesic agent; Z91.013 Allergy to seafood; Z79.82 Long term (current) use of aspirin; Z79.51 Long term (current) use of inhaled steroids; Z79.899 Other long term (current) drug therapy